=== PATIENT | female | born 1960 | race Caucasian/White ===

== ENCOUNTER → 2019-05-13 | Outpatient (CLI) | payer OTHER ==
[~2019-05-13] MED LIST: BREO ELLIPTA 11 EACH IH; HYDR-2145 PO; HYDR-2867 PO; HYDR-3164 PO; LOSA100T14 PO; VENTOLIN HFA18 GM INH
--- NOTE | 2019-05-13 13:29 | RAD ---
ULTRASOUND-GUIDED CORE BIOPSIES OF THE RIGHT BREAST X2 ULTRASOUND-GUIDED CORE BIOPSY OF RIGHT AXILLARY LYMPH NODE History: History of 3.5 cm mass at the 8:00 position of the right breast 2 cm from the nipple and a 4 mm hypoechoic nodule of the 11:00 position of the right breast 3 cm from the nipple. Abnormal-appearing right axillary lymph node. Procedure: The patient provided both verbal and written consent after the procedure and possible complications including bleeding and infection were explained. A timeout was performed which confirmed the name of the patient and date of and type of procedures and side of the procedure. Physician order was checked. Arm bracelet was checked. The patient was placed in the supine position on the ultrasound table and appropriate skin easton were placed on the right breast over the 2 lesions. The right breast was prepped and draped in the usual sterile fashion with ChloraPrep. Total of 6 cc of 1% lidocaine was utilized for local anesthesia at each site. Using sterile technique and ultrasound guidance, a small skin gerri was made and 4 separate 14-gauge Bard core biopsies of the larger 8:00 position mass of the right breast were obtained. These were placed into formalin and sent to pathology for further evaluation. Following this, a "S" biopsy marker was placed adjacent to the mass. Hemostasis was adequate after 5 minutes of manual compression. Postbiopsy sonography demonstrated no significant hematoma. The patient tolerated the procedure well without complication. Following this, using sterile technique and ultrasound guidance, a small skin gerri was made and 4 separate 18-gauge Bard core biopsies of the smaller 11:00 position lesion of the right breast were obtained. These were placed into formalin and sent to pathology for further evaluation. Following this, a coil biopsy marker was placed adjacent to the lesion. Hemostasis was adequate after 5 minutes of manual compression. Postbiopsy sonography demonstrated no significant hematoma. The patient tolerated the procedure well without complication. The right axillary region was scanned and an appropriate skin lobo was placed overlying the 17 mm right axillary lymph node which is diffusely hypoechoic which is abnormal in appearance. This area was prepped and draped in the usual sterile fashion with ChloraPrep. Total of 6 cc of 1 percent lidocaine was utilized for local anesthesia. Using sterile technique and ultrasound guidance, 3 separate 18-gauge fine-needle aspirations of this lymph node were performed and given to a home theater installer for further processing on slides. Subsequently, using sterile technique and ultrasound guidance, one separate 18-gauge Bard core biopsy of this lymph node was performed. This sample was given to the home theater installer for processing. Hemostasis was adequate after 5 minutes of manual compression. Postbiopsy sonography demonstrated no significant hematoma. The patient tolerated the procedure well without complication. IMPRESSION: Ultrasound-guided core biopsies of 2 lesions of the right breast were performed without complication. Fine-needle aspiration and core biopsy of an abnormal appearing right axillary lymph node was performed without competition. Biopsy results are pending. Follow-up will be with the patient's physician. TWO-VIEW DIAGNOSTIC MAMMOGRAM OF THE RIGHT BREAST FINDINGS: 2-D digital CC and MLO mammographic views of the right breast were performed which demonstrates an "S" biopsy marker along the anterior edge of the large spiculated mass. There is a coil biopsy marker seen at the 11:00 position of the anterior aspect of the right breast as well located within 1.5 cm of the S clip. IMPRESSION: Postbiopsy clip placement mammogram of the right breast was performed. Electronically signed by: Jose Carlos Hanna MD (05/13/2019 1:26 PM) [facility]
--- NOTE | 2019-05-14 14:06 | PATHOLOGY ---
Note [facility] Accession Number: [id number] TESTS RESULT FLAG UNITS REF RANGE LAB Clinician Provided Cytology Information No. of containers..01 Other (Miscellaneous) Source: [A] 01 RIGHT AXILLARY NODE DIAGNOSIS: [A] 02 RIGHT AXILLARY NODE POSITIVE FOR MALIGNANCY. CLUSTERS OF MALIGNANT CELLS HAVING CYTOLOGIC FEATURES OF METASTATIC CARCINOMA IDENTIFIED. THIS INTERPRETATION INCLUDES EVALUATION OF A CELL BLOCK. Signed out by: 02 Indio Berrios MD, Pathologist NPI- [id number] Performed by: Sandy Hinton, Entertainment Manager ([facility]) Gross description: 01 30ML, PINK, CLOUDY /LCS 06/10/1840 0000 Local FLAG LEGEND: L-Low Normal,H-High Normal,LL-Alert Low,HH-Alert High <-Panic Low,>-Panic High,A-Abnormal,AA-Critical Abnormal Performed at: [address] [place] [address] Mike Nix MD, [address] [address] Indio Berrios MD, Specimen Comment: [id number] Specimen Comment: A duplicate report has been generated due to demographic updates. Performed at: [address], [place], [place] [id number] MD Mike Nix MD Phone: [phone]
--- NOTE | 2019-05-14 17:06 | PATHOLOGY ---
[facility] Accession Number: [id number] . 01 Material submitted: . PART A: breast - RIGHT BREAST TISSUE 8:00 2CMFN. Modifiers: right PART B: breast - RIGHT BREAST TISSUE 11:00 3CMFN. Modifiers: right PART C: lymph node - RIGHT AXILLARY NODE. Modifiers: right, axillary tail . 01 Clinical history: . Right breast mass Right breast mass 11:00 3 cm from nipple Right axillary lymphadenopathy . 02 Diagnosis: A. Breast tissue, right breast mass 8:00, 2 cm from nipple, needle biopsies: - INVASIVE DUCTAL CARCINOMA, HIGH GRADE. . B. Breast tissue, right breast mass 11:00, 3 cm from nipple, needle biopsies: - Intraductal papilloma with focal sclerosis. . C. Right axillary lymph node, needle biopsy: - METASTATIC DUCTAL CARCINOMA. . (JPM:mm; 05/14/2019) [facility] 05/14/2019 1108 Local . 02 Comment: Sections of the right breast mass at 8:00 needle biopsy reveal an invasive mammary carcinoma. The tumor cells are present in small solid nests and cords which infiltrate a reactive desmoplastic stroma and show little to no tubule formation. The tumor cells show marked nuclear pleomorphism. The tumor shows marked mitotic activity with foci showing up to 4 mitotic figures within a single high power field. The invasive carcinoma measures up to 1.4 cm in greatest dimension on the glass slide. There is no lymphovascular tumor invasion. There are no tumor associated calcifications. Breast prognostic studies will be obtained on block A2, the results of which will be reported separately. . Sections of the right breast mass at 11:00 needle biopsy reveal an intraductal papilloma with focal sclerosis. There is no atypia or evidence of malignancy. . Sections of the right axillary lymph node needle biopsy shows extensive skyler replacement by metastatic ductal carcinoma. . The case is also examined by Dr. Annabelle Perez, who concurs with the diagnosis. . (JPM:mml; 05/14/2019) . 02 Electronically signed: . Indio Berrios MD, Pathologist NPI- [id number] . 01 Gross description: . A. The specimen is received in formalin, labeled "Nicolle Rojas, right breast 8:00 2 cm from nipple" and consists of 4 needle cores of pink-sandoval breast tissue measuring between 1.2 cm and 1.8 cm in length and 0.1 cm each in diameter which are entirely submitted in A1-A3. The specimen was obtained at 10 AM on 05/13/2019 and placed in formalin at 10:08 AM. The cold ischemic time is 8 minutes and the total formalin fixation time is greater than 6 hours but less than 72 hours. . B. The specimen is received in formalin, labeled "Nicolle Rojas, right breast 11:00 3 cm from nipple" and consists of 5 delicate needle cores of pink-sandoval tissue measuring between 0.4 cm and 0.9 cm in length and less than 0.1 cm each in diameter which are entirely submitted in B1. The specimen was obtained at 10:33 AM on 05/13/2019 and placed in formalin at 10:38 AM. The cold ischemic time is 5 minutes and the total formalin fixation time is greater than 6 hours but less than 72 hours. . C. The specimen is received in formalin, labeled "Nicolle Rojas, right axillary node" and consists of a single pink sandoval needle core measuring 1.3 cm in length and less than 0.1 cm in diameter which is entirely submitted in C1. The specimen was obtained at 11:20 AM and placed in formalin at 11:20 AM. The cold ischemic time is less than 1 minute and total formalin fixation time is greater than 6 hours but less than 72 hours. (SDY; 05/13/2019) SYU/SYU 05/13/2019 1537 Local . 02 Pathologist provided ICD-10: C50.911, D24.1, C77.3 . 02 CPT . 699642, 279810, 289056 Specimen Comment: A courtesy copy of this report has been sent to [phone], [phone] Specimen Comment: 1989 Specimen Comment: Report sent to and Performed at: [address], [place] [id number] MD Mike Nix MD Phone: [phone] Performed at: [facility] [address] [place], [place] [id number] MD Indio Berrios MD Phone: [phone]
== END ==
LOC: US 08:49
PROVIDERS: ATTEND Surgery
DX: N63.10 Unspecified lump in the right breast, unspecified quadrant (principal); C77.3 Secondary and unspecified malignant neoplasm of axilla and upper limb lymph nodes; C50.911 Malignant neoplasm of unspecified site of right female breast
CPT/HCPCS: 19083; 19084; 38505; 76942; 77065; 88173; 88305; 88361; C1713; 19081

== ENCOUNTER → 2019-05-23 | Outpatient (CLI) | payer OTHER ==
--- NOTE | 2019-05-23 15:58 | CARD ---
MR#: [id number] Date of Study: 05/23/2019 Ordering Physician: GEETA HARRELL, Referring Physician: Eufemia JEROME: Binta Johnson RDCS APPROVED REPORT EXAM: LIMITED Two-dimensional echocardiogram. Other Information Quality : Good INDICATION LV Function:Systolic Breast Cgmoyk-Vhi-Stcvc 2D DIMENSIONS RVDd2.5 (2.9-3.5cm)Left Atrium(2D)3.5 (1.6-4.0cm) IVSd1.1 (0.7-1.1cm)Aortic Root(2D)2.5 (2.0-3.7cm) LVDd5.0 (3.9-5.9cm)LVOT Diameter1.8 (1.8-2.4cm) PWd1.1 (0.7-1.1cm)LVDs2.6 (2.5-4.0cm) FS (%) 30.0 %SV92.0 ml LVEF(%)60.0 (>50%) LEFT VENTRICLE The left ventricle is normal size. There is normal left ventricular wall thickness. The left ventricu lar systolic function is normal. The Ejection Fraction is 60-65%. There is normal LV segmental wall m otion. RIGHT VENTRICLE The right ventricle is normal size. The right ventricular systolic function is normal. ATRIA The left atrium size is normal. The right atrium size is normal. PERICARDIAL EFFUSION There is no evidence of significant pericardial effusion. Critical Notification Critical Value: No <Conclusion> The left ventricular systolic function is normal. The Ejection Fraction is 60-65%. There is normal LV segmental wall motion. There is no evidence of significant pericardial effusion. Signed by : Toan Valenzuela, Electronically Approved : 05/23/2019 15:57:41
== END | disposition home or self-care (01) ==
LOC: ECHO 14:38
PROVIDERS: ATTEND Internal Medicine Hematology & Oncology
DX: C50.511 Malignant neoplasm of lower-outer quadrant of right female breast (principal); Z17.0 Estrogen receptor positive status [ER+]
CPT/HCPCS: 93308

== ENCOUNTER 2019-05-26 10:25 | Day surgery (SDC) | payer OTHER ==
[~2019-05-26] VITALS: Ht 170.2 cm; Wt 95.5 kg
[~2019-05-26 10:25] MED LIST changes: +BUPIVACAINE-EPI 0.5%-1:200000 MPF 30 ML VIAL. INJ ONE; +HEPARIN SODIUM 5,000 UNIT in IV NORMAL SALINE 500ML BAG 500 ML IRR ONE; -HYDR-3164 PO; +HYDROmorphone 2 MG/ML VIAL IV PRN; +IV RINGERS,LACTATED 1000ML 1,000 ML IV SCH; +LIDOCAINE 1% PF 2 ML VIAL. ID PRN; +MORPHINE SULFATE 2 MG/ML VIAL. IV PRN; +ONDANSETRON PF 4 MG/2 ML VIAL. IV PRN; +PROCHLORPERAZINE 10 MG/2 ML VIAL. IV PRN; +fentaNYL PF VIAL 100 MCG/2 ML VIAL IV PRN
[2019-05-26] MEDS ORDERED: PROPOFOL 20 ML IV ONE (10:32)
[2019-05-26] MEDS ORDERED: LIDOCAINE 2% PF 5 ML VIAL. ONE (10:33)
[2019-05-26] MEDS ORDERED: ONDANSETRON PF 4 MG/2 ML VIAL. ONE (10:33)
[2019-05-26] MEDS ORDERED: DEXAMETHASONE SOD PHOS 4 MG/ML VIAL ONE (10:33)
[2019-05-26] MEDS ORDERED: fentaNYL PF VIAL 100 MCG/2 ML VIAL ONE ×2 (10:33→13:33)
[2019-05-26] MEDS ORDERED: ceFAZolin 2GM PREMIX 2 GM/50 ML BAG IV ONE (12:00)
[2019-05-26] MEDS ORDERED: SEVOFLURANE 61 TO 120 MINUTES. IH ONE (12:05)
[2019-05-26] MEDS ORDERED: ePHEDrine PF IN SALINE 50 MG/10 ML SYRINGE. IV ONE (12:46)
--- NOTE | 2019-05-26 12:58 | PDOC4 ---
Operative Note Operative Note Operative Note: Preoperative Diagnosis: Breast Cancer Postoperative Diagnosis: Same Procedure: Placement of Power Port-A-Cath using SonoSite guidance Surgeon: Luis Eduardo Refinery Operator Polymerization Plant: Chet TRUJILLO Anesthesia: Gen. EBL: 10 mL Specimen: None Drains: None Complications: None Indication: The patient is a 58 year old female who was recently diagnosed with right breast cancer. A request was made for placement of a Port-A-Cath to allow for chemotherapy treatment. The details and risks of the procedure were discussed. The risks include bleeding, infection, vessel injury, pneumothorax, pain, anesthetic risk, port, catheter or tubing malfunction or dysfunction, potential need for additional surgery or procedure. The patient understands and would like to proceed. Description: The patient was placed supine on the operating table and general anesthesia was performed. The bilateral neck and chest were prepped with ChloraPrep and draped in a standard surgical manner. With SonoSite ultrasound guidance the left internal jugular vein was readily identified and appeared patent. Entry was made into the vein with the skinny introducer needle under ultrasound guidance. The skinny guidewire passed readily into the central venous system. A small incision was made at the skin exit site. The skinny sheath was then placed over the guidewire. The larger guidewire was then placed within the sheath into the central venous system. Intraoperative fluoroscopy confirmed good position of the guidewire in the central venous system. The dilator and sheath were then placed over the guidewire. The catheter portion was then inserted into the central venous system and visualized using fluoroscopy. A separate left u pper chest skin incision was made with a scalpel. A subcutaneous pocket was developed with cautery of sufficient size to accommodate the port. The catheter was then tunneled subcutaneously to the level of the newly formed pocket. Using fluoroscopy the catheter was positioned with the tip in the distal superior vena cava. The catheter was then cut and assembled to the port. The port was then secured to the chest wall with two 2-0 Prolene sutures. Using the Chavez needle the port readily aspirated and flushed without difficulty. Fluoroscopy confirmed good positioning of the catheter with no twists or kinks. The subcutaneous tissue was approximated with 3-0 Vicryl. The skin was then closed with 4-0 Monocryl. A sterile OpSite dressing was then applied. The patient tolerated the procedure well and was sent to the recovery room in stable condition. At the end of the case all counts were correct. ALEJANDRO MURRAY MD May 26, 2019 12:57
[2019-05-26] MEDS ORDERED: HYDROcodone/APAP 5/325MG 1 TAB TABLET PO ONE ×2 (13:00)
--- NOTE | 2019-05-26 13:00 | DISCH ---
DISCHARGE INSTRUCTIONS Condition on Discharge Condition on Discharge: Stable Activity After Discharge Activity Instructions for Disc: Resume previous activity, Other, see below Wound Incision Care Wound/Incision Care: Other, see below (keep incision and port clean and dry) Follow-Up Follow up with: Oncology appointment ALEJANDRO MURRAY MD May 26, 2019 13:00
[2019-05-26] MEDS ORDERED: HYDR-3164 PO (13:06)
[2019-05-26] MEDS: fentaNYL PF VIAL 100 MCG/2 ML VIAL IV PRN ×2 (13:35→13:46)
[2019-05-26 13:45] VITALS: BP 157/59
--- NOTE | 2019-05-26 14:12 | RAD ---
EXAM: Chest, single view. HISTORY: Portacatheter placement. COMPARISON: None. FINDINGS: A single view of the chest is obtained. There is a left chest wall port catheter with the tip in the superior vena cava. There is diffuse lower lobe predominant interstitial infiltrate. There is no pleural effusion or pneumothorax. The heart is normal in size. There is a 2.7 cm nodule or mass along the right upper lobe. IMPRESSION: 1. Left port catheter with the tip in the superior cava. There is no pneumothorax. 2. Diffuse lower lobe predominant interstitial infiltrate. 3. Suspected right upper lobe nodule or mass. This can be better characterized with a CT. Electronically signed by: Camelia Blake MD (05/26/2019 2:09 PM) [place] [id number]
== END 2019-05-26 14:28 | disposition home or self-care (01) ==
LOC: SURG 10:25
PROVIDERS: ATTEND Surgery
DX: Z45.2 Encounter for adjustment and management of vascular access device (principal); C50.911 Malignant neoplasm of unspecified site of right female breast; I10 Essential (primary) hypertension; E66.9 Obesity, unspecified; Z68.32 Body mass index [BMI] 32.0-32.9, adult; Z87.891 Personal history of nicotine dependence
CPT/HCPCS: 36561; 71045; 77001; A7015; C1788; J0171; J0696; J1100; J1644; J2001; J2405; J2704; J3010; J3490; J7040; 36556

== ENCOUNTER → 2019-10-24 | Outpatient (CLI) | payer OTHER ==
[~2019-10-24] MED LIST changes: -BUPIVACAINE-EPI 0.5%-1:200000 MPF 30 ML VIAL. INJ ONE; -HEPARIN SODIUM 5,000 UNIT in IV NORMAL SALINE 500ML BAG 500 ML IRR ONE; +HYDR-3164 PO; -HYDROmorphone 2 MG/ML VIAL IV PRN; -IV RINGERS,LACTATED 1000ML 1,000 ML IV SCH; -LIDOCAINE 1% PF 2 ML VIAL. ID PRN; -MORPHINE SULFATE 2 MG/ML VIAL. IV PRN; -ONDANSETRON PF 4 MG/2 ML VIAL. IV PRN; -PROCHLORPERAZINE 10 MG/2 ML VIAL. IV PRN; +VARE1TAB21 PO; -fentaNYL PF VIAL 100 MCG/2 ML VIAL IV PRN
== END | disposition home or self-care (01) ==
LOC: LAB 13:06
PROVIDERS: ATTEND Surgery
DX: Z01.812 Encounter for preprocedural laboratory examination (principal); Z11.59 Encounter for screening for other viral diseases; C50.911 Malignant neoplasm of unspecified site of right female breast
CPT/HCPCS: 36415; 87635

== ENCOUNTER 2019-10-29 09:12 | Observation (INO) | payer OTHER ==
[~2019-10-29] VITALS: Ht 170.2 cm; Wt 96.3 kg
[2019-10-29] VITALS (8 sets, daily range): BP systolic 135–161; BP diastolic 70–92
[~2019-10-29 09:12] MED LIST changes: +DEXAMETHASONE SOD PHOS 4 MG/ML VIAL ONE; +HYDROmorphone 2 MG/ML VIAL IV PRN; +IV RINGERS,LACTATED 1000ML 1,000 ML IV SCH; +LIDOCAINE 2% PF 5 ML VIAL. ONE; +MIDAZOLAM HCL/PF 2 MG/2 ML VIAL. ONE; +MORPHINE SULFATE 2 MG/ML VIAL. IV PRN; +ONDANSETRON PF 4 MG/2 ML VIAL. IV PRN; +ONDANSETRON PF 4 MG/2 ML VIAL. ONE; +PROCHLORPERAZINE 10 MG/2 ML VIAL. IV PRN; +PROPOFOL 10 MG/ML (20ML) VIAL. IV ONE; +fentaNYL PF VIAL 100 MCG/2 ML VIAL IV PRN; +fentaNYL PF VIAL 100 MCG/2 ML VIAL ONE
[2019-10-29] MEDS ORDERED: ISOSULFAN BLUE 1% 50 MG/5 ML VIAL. SQ ONE (09:38)
[2019-10-29] MEDS ORDERED: ceFAZolin 2GM PREMIX 2 GM/50 ML BAG IV ONE (11:00)
[2019-10-29] MEDS ORDERED: SEVOFLURANE 61 TO 120 MINUTES. IH ONE (11:12)
[2019-10-29] MEDS ORDERED: fentaNYL PF VIAL 100 MCG/2 ML VIAL ONE ×2 (11:49→13:57)
--- NOTE | 2019-10-29 13:25 | PDOC4 ---
Operative Note Operative Note Operative Note: Preoperative Diagnosis: Right breast cancer Postoperative Diagnosis: Same Procedure: Right simple mastectomy, right axillary sentinel lymph node biopsy, right axillary dissection Surgeon: Luis Eduardo [facility] Attendant: SIVA Ny Anesthesia: General EBL: 50 mL Specimen: [place] lymph node #1, #2 to pathology, right breast stitch at 12:00 to pathology, right axillary contents to pathology Drains: 19 Indonesian BRIGIDA drain x2 Complications: None Indication: The patient is a 58-year-old female who was diagnosed previously with a large right breast cancer and metastasis to an axillary lymph node. She received neoadjuvant chemotherapy and is now ready for surgical treatment. In our discussion we recommended a complete mastectomy due to the size and location of the tumor. In addition we plan to incorporate a sentinel lymph node biopsy and she is aware of the potential for an axillary dissection. The risks of surgery were discussed which include bleeding, infection, wound healing problems, scar tissue, pain, anesthetic risk, potential need for additional surgery procedure. She understands and would like to proceed. Description: The patient was taken to the operating room and placed supine on the operating table. General anesthesia was performed. The right breast and axilla were prepped with ChloraPrep and draped in a standard surgical manner. 5 mL of Lymphazurin were injected deep to the nipple areole complex. Several mi nutes were allowed to elapse. With a marker in elliptical tracing was made around the nipple areole or complex extending from the medial breast to the axilla. The superior lateral aspect of the tracing was opened with a scalpel. Cautery dissection was carried down into the axillary tissues. The radio guided probe was able to identify 2 separate areas of increased nuclear uptake corresponding to sentinel lymph nodes. They were both mobilized from the surrounding tissue and sent to pathology. Frozen section evaluation confirmed the presence of metastasis in lymph node #2. We therefore elected to proceed with a full axillary dissection. With a scalpel an incision was made at the elliptical tracing. Cautery dissection was used to develop the skin flaps. The superior flap was developed initially mobilizing the skin from the breast parenchyma. The dissection was carried superiorly to the level just below the clavicle. In a similar manner the inferior skin flap was developed and the dissection included the inframammary fold. In a medial to lateral fashion the breast was mobilized off the chest wall. Several blood vessels that were encountered were controlled with cautery and larger vessels were ligated with 2- 0 silk. The entire breast was then fully excised and marked with a stitch at the 12 o'clock position. This was sent to pathology for evaluation. We proceeded then with the axillary dissection. The boundaries of the dissection included the axillary vein superiorly, the pectoralis muscle medially, and the latissimus muscle laterally. In a superior to inferior fashion the adipose and lymphatic structures were mobilized from the surrounding tissues. The thoracodorsal bundle and nerve were identified and preserved. The long thoracic nerve was also identified and preserved. The axillary tissues were fully freed and sent as a specimen. A couple of blood vessels supplying the axillary contents were ligated with 2-0 Vicryl. Two drains were then left, one in the axilla and one beneath the skin flap of the right chest and both were secured to the skin with 2-0 silk. The subcutaneous tissues were approximated with 3-0 Vicryl and skin was closed with 4-0 Monocryl. A sterile OpSite dressing was then applied. The patient tolerated the procedure well and was sent to the recovery room in stable condition. At the end of the case all counts were correct. ALEJANDRO MURRAY MD October 29, 2019 13:25
[2019-10-29] MEDS: IV NORMAL SALINE 1000ML BAG 1,000 ML IV SCH (13:26)
[2019-10-29] MEDS ORDERED: HYDROmorphone 2 MG/ML VIAL IV PRN ×2 (13:30→14:45)
[2019-10-29] MEDS ORDERED: NALOXONE 0.4 MG/ML VIAL. IV PRN (13:30)
[2019-10-29] MEDS ORDERED: HYDROcodone/APAP 5/325MG 1 TAB TABLET PO PRN (13:30)
[2019-10-29] MEDS ORDERED: 0.9 % SODIUM CHLORIDE 10 ML DISP.SYRIN. IV PRN (13:30)
[2019-10-29] MEDS ORDERED: ONDANSETRON PF 4 MG/2 ML VIAL. IVP PRN (13:30)
[2019-10-29] MEDS ORDERED: NON FORMULARY ITEM (Albuterol Sulfate (Ventolin Hfa Inhaler) 2 PUFF) INH PRN (13:30)
--- NOTE | 2019-10-29 13:38 | RAD ---
EXAM: SENTINEL NODE INJECTION 10/29/2019 9:45 AM CLINICAL INDICATION:Breast cancer COMPARISON:Breast ultrasound and mammogram 05/13/2019 TECHNIQUE: The purpose of the procedure and risks and benefits were explained to the patient. Informed consent was obtained. The skin overlying the lateral right breast was cleansed with Betadine. Topical spray was used for anesthetic.Next, 0.2 mL of Lymphoseek (1 mCi technetium 99m labeled Tilmanocept) radiotracer was injected intradermally at the edge of the areola at 9:00, creating a skin wheel. The patient tolerated the procedure well without immediate complication. IMPRESSION:Technically successful sentinel node injection of the right breast for surgical planning. Electronically signed by: Melvi Morales MD (10/29/2019 1:34 PM) [id number]
[2019-10-29] MEDS: fentaNYL PF VIAL 100 MCG/2 ML VIAL IV PRN ×2 (13:59→14:13)
[2019-10-29] MEDS ORDERED: MORPHINE SULFATE 2 MG/ML VIAL. ONE (14:29)
[2019-10-29] MEDS ORDERED: PROCHLORPERAZINE 10 MG/2 ML VIAL. ONE (14:29)
[2019-10-29] MEDS: hydrALAZINE 10 MG TABLET PO SCH (15:00)
[2019-10-29] MEDS: LOSARTAN POTASSIUM 50 MG TABLET. PO SCH (15:00)
[2019-10-29] MEDS: hydroCHLOROthiazide 25 MG TABLET PO SCH (15:00)
[2019-10-29] MEDS ORDERED: ALBUTEROL SULFATE 2.5 MG/3 ML NEBU. NEB PRN (15:00)
[2019-10-29] MEDS: ALBUTEROL SULFATE 2.5 MG/3 ML NEBU. NEB SCH ×2 (15:09→19:55)
[2019-10-29] MEDS: IV 1/2 NORMAL SALINE 1,000 ML IV SCH (16:31)
[2019-10-29] MEDS: HYDROcodone/APAP 5/325MG 1 TAB TABLET PO PRN ×2 (16:40→22:00)
[2019-10-29] MEDS: VARENICLINE 0.5 MG TABLET. PO SCH ×2 (16:40→22:01)
[2019-10-29] MEDS: BUDESONIDE 0.5 MG/2 ML NEBU. NEB SCH (19:56)
[2019-10-30] MEDS: IV 1/2 NORMAL SALINE 1,000 ML IV SCH (02:46)
[2019-10-30 03:00] VITALS: BP 127/68
[2019-10-30] MEDS: ALBUTEROL SULFATE 2.5 MG/3 ML NEBU. NEB SCH ×3 (07:13→13:08)
[2019-10-30] MEDS: BUDESONIDE 0.5 MG/2 ML NEBU. NEB SCH (07:14)
[2019-10-30 07:15] VITALS: BP 145/87
[2019-10-30] MEDS: hydrALAZINE 10 MG TABLET PO SCH (07:39)
[2019-10-30] MEDS: VARENICLINE 0.5 MG TABLET. PO SCH (07:39)
[2019-10-30] MEDS: LOSARTAN POTASSIUM 50 MG TABLET. PO SCH (07:40)
[2019-10-30] MEDS: hydroCHLOROthiazide 25 MG TABLET PO SCH (07:40)
[2019-10-30] MEDS: HYDROcodone/APAP 5/325MG 1 TAB TABLET PO PRN ×2 (07:40→12:03)
[2019-10-30] MEDS ORDERED: NON FORMULARY ITEM (Fluticasone/Vilanterol (Breo Ellipta 100-25 Mcg Inh) 2 PUFF) IH SCH (09:00)
[2019-10-30 11:26] VITALS: BP 129/85
--- NOTE | 2019-10-30 12:36 | PDOC ---
PROGRESS NOTES Subjective Subjective doing well Objective Objective Vital Signs Date Time Temp Pulse Resp B/P (MAP) Pulse Ox O2 Delivery O2 Flow Rate FiO2 10/30/19 12:03 91 Nasal Cannula 2.0 10/30/19 11:26 97.5 95 16 129/85 (100) 97.5 Intake and Output 10/30/19 07:00 Intake Total 1100 ml Output Total 150 ml Balance 950 ml Intake Oral 350 ml IV Total 750 ml Output Drainage Total 100 ml Estimated Blood Loss 50 ml # Voids 1 Physical Exam Physical Exam dressing clean, JPs with serosang fluid Assessment Assessment R breast cancer Plan Plan of Care Stable postop, discharge Comment Review of Relevant I have reviewed the following items lobo (where applicable) has been applied. Medications Current Medications Ondansetron HCl (Zofran) 4 mg PRN Q6HRS PRN IV NAUSEA/VOMITING; Start 10/29/19 at 07:00; Stop 10/30/19 at 06:59; Status DC Fentanyl Citrate (Fentanyl 2ml Vial) 25 mcg PRN Q5MIN PRN IV MILD PAIN 1-3; Start 10/29/19 at 07:00; Stop 10/30/19 at 06:59; Status DC Fentanyl Citrate (Fentanyl 2ml Vial) 50 mcg PRN Q5MIN PRN IV MODERATE TO SEVERE PAIN Last administered on 10/29/19at 14:13; Start 10/29/19 at 07:00; Stop 10/30/19 at 06:59; Status DC Morphine Sulfate (Morphine Sulfate) 1 mg PRN Q10MIN PRN IV SEVERE PAIN 7-10; Start 10/29/19 at 07:00; Stop 10/30/19 at 06:59; Status DC Ringer's Solution 1,000 ml @ 30 mls/hr Q24H IV Last administered on 10/29/19at 10:02; Start 10/29/19 at 07:00; Stop 10/29/19 at 18:59; Status DC Hydromorphone HCl (Dilaudid) 0.5 mg PRN Q10MIN PRN IV SEV PAIN, Second choice; Start 10/29/19 at 07:00; Stop 10/30/19 at 06:59; Status DC Prochlorperazine Edisylate (Compazine) 5 mg PACU PRN PRN IV NAUSEA, MRX1; Start 10/29/19 at 07:00; Stop 10/30/19 at 06:59; Status DC Cefazolin Sodium/ Dextrose 50 ml @ 100 mls/hr 1X PREOP PRN IV PRIOR TO PROCEDURE Last administered on 10/29/19at 10:53; Start 10/29/19 at 06:00; Stop 10/29/19 at 18:00; Status DC Propofol (Diprivan) 200 mg STK-MED ONCE IV ; Start 10/29/19 at 09:09; Stop 10/29/19 at 09:10; Status DC Lidocaine HCl (Lidocaine Pf 2% Vial) 5 ml STK-MED ONCE .ROUTE ; Start 10/29/19 at 09:09; Stop 10/29/19 at 09:10; Status DC Ondansetron HCl (Zofran) 4 mg STK-MED ONCE .ROUTE ; Start 10/29/19 at 09:09; Stop 10/29/19 at 09:10; Status DC Dexamethasone Sodium Phosphate (Decadron) 4 mg STK-MED ONCE .ROUTE ; Start 10/29/19 at 09:09; Stop 10/29/19 at 09:10; Status DC Fentanyl Citrate (Fentanyl 2ml Vial) 100 mcg STK-MED ONCE .ROUTE ; Start 10/29/19 at 09:09; Stop 10/29/19 at 09:10; Status DC Midazolam HCl (Versed) 2 mg STK-MED ONCE .ROUTE ; Start 10/29/19 at 09:09; Stop 10/29/19 at 09:10; Status DC Isosulfan Blue (Lymphazurin Blue) 50 mg STK-MED ONCE SQ Last administered on 10/29/19at 10:28; Start 10/29/19 at 09:38; Stop 10/29/19 at 09:38; Status DC Sevoflurane (Ultane) 60 ml STK-MED ONCE IH ; Start 10/29/19 at 11:12; Stop 10/29/19 at 11:12; Status DC Fentanyl Citrate (Fentanyl 2ml Vial) 100 mcg STK-MED ONCE .ROUTE ; Start 10/29/19 at 11:49; Stop 10/29/19 at 11:50; Status DC Sodium Chloride (Normal Saline Flush) 3 ml QSHIFT PRN IV AFTER MEDS AND BLOOD DRAWS; Start 10/29/19 at 13:30 Sodium Chloride 1,000 ml @ 75 mls/hr [id number] IV Last administered on 10/29/19at 16:31; Start 10/29/19 at 13:26 Acetaminophen/ Hydrocodone Bitart (Lortab 5/325) 1 tab PRN Q4HRS PRN PO MILD PAIN 1-3 Last administered on 10/30/19at 12:03; Start 10/29/19 at 13:30 Acetaminophen/ Hydrocodone Bitart (Lortab 5/325) 2 tab PRN Q4HRS PRN PO MODERATE PAIN, SEVERE PAIN; Start 10/29/19 at 13:30 Naloxone HCl (Narcan) 0.4 mg PRN Q2MIN PRN IV SEE INSTRUCTIONS; Start 10/29/19 at 13:30 Sodium Chloride 1,000 ml @ 25 mls/hr Q24H IV ; Start 10/29/19 at 13:26 Hydromorphone HCl (Dilaudid) 0.2 mg PRN Q2HR PRN IV PAIN; Start 10/29/19 at 13:30 Ondansetron HCl (Zofran) 4 mg PRN Q6HRS PRN IVP NAUESA, 1ST CHOICE; Start 10/29/19 at 13:30 Hydralazine HCl (Apresoline) 10 mg DAILY PO Last administered on 10/30/19at 07:39; Start 10/29/19 at 15:00 Hydrochlorothiazide (Hydrodiuril) 12.5 mg DAILY PO Last administered on 10/30/19at 07:40; Start 10/29/19 at 15:00 Non-Formulary Medication (Albuterol Sulfate (Ventolin Hfa Inhaler)) 2 puff PRN Q4-6HRS PRN INH SHORTNESS OF BREATH; Start 10/29/19 at 13:30; Status UNV Non-Formulary Medication (Fluticasone/ Vilanterol (Breo Ellipta 100-25 Mcg Inh)) 2 puff DAILY IH ; Start 10/30/19 at 09:00; Status UNV Losartan Potassium (Cozaar) 100 mg DAILY PO Last administered on 10/30/19at 07:40; Start 10/29/19 at 15:00 Varenicline (Chantix) 1 mg BID PO Last administered on 10/30/19at 07:39; Start 10/29/19 at 14:15 Fentanyl Citrate (Fentanyl 2ml Vial) 100 mcg STK-MED ONCE .ROUTE ; Start 10/29/19 at 13:57; Stop 10/29/19 at 13:58; Status DC Morphine Sulfate (Morphine Sulfate) 2 mg STK-MED ONCE .ROUTE ; Start 10/29/19 at 14:29; Stop 10/29/19 at 14:29; Status DC Prochlorperazine Edisylate (Compazine) 10 mg STK-MED ONCE .ROUTE ; Start 10/29/19 at 14:29; Stop 10/29/19 at 14:30; Status DC Hydromorphone HCl (Dilaudid) 0.5 mg PRN Q2HR PRN IV PAIN; Start 10/29/19 at 14:45 Albuterol Sulfate (Ventolin Neb Soln) 2.5 mg Q6HRS NEB Last administered on 10/30/19at 07:13; Start 10/29/19 at 15:00 Budesonide (Pulmicort) 0.5 mg RTBID NEB Last administered on 10/30/19at 07:14; Start 10/29/19 at 20:00 Albuterol Sulfate (Ventolin Neb Soln) 2.5 mg PRN Q4HRS PRN NEB SHORTNESS OF BREATH; Start 10/29/19 at 15:00 Active Scripts Active Reported Chantix (Varenicline Tartrate) 1 Mg Tablet 1 Mg PO BID Hydrochlorothiazide Tablet (Hydrochlorothiazide) 25 Mg Tablet 12.5 Mg PO DAILY Losartan Potassium 100 Mg Tablet 100 Mg PO DAILY Hydralazine Hcl 10 Mg Tablet 10 Mg PO DAILY Ventolin Hfa Inhaler (Albuterol Sulfate) 18 Gm Hfa.aer.ad 2 Puff INH PRN Q4-6HRS PRN Breo Ellipta 100-25 Mcg Inh (Fluticasone/Vilanterol) 1 Each Aer.pow.ba 2 Puff IH DAILY Vitals/I & O Vital Sign - Last 24 Hours 10/29/19 10/29/19 10/29/19 10/29/19 13:28 13:45 13:59 14:00 Pulse 89 89 Resp 21 19 20 B/P (MAP) 199/92 188/85 Pulse Ox 98 96 96 O2 Delivery Mask Simple Mask Simple Mask Simple Mask O2 Flow Rate 8 8 8.0 8 5/20/20 5/20/20 5/20/20 5/20/20 14:13 14:15 14:30 14:40 Temp 98.4 98.4 97.8 98.4 98.4 97.8 Pulse 91 88 101 Resp 20 18 18 17 B/P (MAP) 157/89 180/82 143/83 (103) Pulse Ox 95 93 93 93 O2 Delivery Nasal Cannula Nasal Cannula Nasal Cannula Nasal Cannula O2 Flow Rate 4.0 4 4 3.0 5/20/20 5/20/20 5/20/20 5/20/20 14:45 14:50 16:30 16:40 Pulse 82 Resp 16 B/P (MAP) 141/89 (106) Pulse Ox 92 O2 Delivery Nasal Cannula Nasal Cannula Nasal Cannula Room Air O2 Flow Rate 4.0 4 3.0 5/20/20 5/20/20 5/20/20 5/20/20 16:45 17:00 17:15 17:45 Pulse 92 89 85 86 B/P (MAP) 161/91 (114) 152/92 (112) 147/84 (105) 143/83 (103) Pulse Ox 92 92 96 95 O2 Delivery Nasal Cannula Nasal Cannula Nasal Cannula Nasal Cannula O2 Flow Rate 3.0 3.0 3.0 3.0 5/20/20 5/20/20 5/20/20 5/20/20 17:46 19:00 19:58 20:00 Temp 97.9 97.9 Pulse 89 Resp 16 18 B/P (MAP) 135/86 (102) Pulse Ox 95 99 O2 Delivery Nasal Cannula Nasal Cannula Nasal Cannula Nasal Cannula O2 Flow Rate 4.0 3.0 3.0 4.0 5/20/20 5/20/20 5/20/20 5/21/20 22:00 23:00 23:00 03:00 Temp 97.9 97.9 97.9 97.9 Pulse 80 80 Resp 20 20 18 18 B/P (MAP) 135/70 (91) 127/68 (87) Pulse Ox 99 95 95 96 O2 Delivery Nasal Cannula Nasal Cannula Nasal Cannula Nasal Cannula O2 Flow Rate 3.0 3.0 3.0 3.0 5//20 5/21/20 5/21/20 5//20 07:15 07:15 07:39 07:40 Temp 98.2 98.2 Pulse 91 91 Resp 16 B/P (MAP) 145/87 (106) 145/87 Pulse Ox 94 90 94 O2 Delivery Nasal Cannula Nasal Cannula Nasal Cannula O2 Flow Rate 2.0 3.0 2.0 10/30/19 10/30/19 10/30/19 10/30/19 07:40 07:45 08:40 11:26 Temp 97.5 97.5 Pulse 91 95 Resp 16 B/P (MAP) 145/87 129/85 (100) Pulse Ox 94 91 O2 Delivery Nasal Cannula Nasal Cannula Nasal Cannula O2 Flow Rate 2.0 2.0 2.0 10/30/19 12:03 Pulse Ox 91 O2 Delivery Nasal Cannula O2 Flow Rate 2.0 Intake and Output 10/29/19 10/29/19 10/30/19 15:00 23:00 07:00 Intake Total 800 ml 300 ml Output Total 50 ml 100 ml Balance 750 ml 300 ml -100 ml ALEJANDRO MURRAY MD October 30, 2019 12:36
--- NOTE | 2019-10-30 12:38 | DISCH ---
DISCHARGE INSTRUCTIONS Condition on Discharge Condition on Discharge: Stable Activity After Discharge Activity Instructions for Disc: Activity as tolerated Diet after Discharge Diet after Discharge: Regular Wound Incision Care Wound/Incision Care: Other, see below (keep dressings clean and dry, record BRIGIDA drain output BID) Follow-Up Follow up with: Dr Murray in 1 week in office, call for appt [phone] ALEJANDRO MURRAY MD October 30, 2019 12:38
--- NOTE | 2019-10-30 12:40 | PDOC3 ---
Discharge Summary Visit Information Date of Admission: October 29, 2019 Date of Discharge: October 30, 2019 Admitting Diagnosis: R breast cancer Brief Hospital Course Allergies Allergies Coded Allergies Type Severity Reaction Last Updated Verified No Known Drug Allergies 05/26/19 No Vital Signs Vital Signs Date Time Temp Pulse Resp B/P (MAP) Pulse Ox O2 Delivery O2 Flow Rate FiO2 10/30/19 12:03 91 Nasal Cannula 2.0 10/30/19 11:26 97.5 95 16 129/85 (100) 97.5 Brief Hospital Course Ms. Rojas is a 58 old female who presented with right breast cancer. She underwent a right mastectomy and is stable for discharge on POD 1. Discharge Information Scheduled Fluticasone/Vilanterol (Breo Ellipta 100-25 Mcg Inh) 1 Each Aer.pow.ba, 2 PUFF I H DAILY for CONTROL COPD, (Reported) Entered as Reported by: ALEXANDRO BARBOZA on 05/23/19 1058 Last Action: Converted on 10/29/19 1330 by ALEJANDRO MURRAY Hydralazine Hcl (Hydralazine Hcl) 10 Mg Tablet, 10 MG PO DAILY for BP CONTROL, (Reported) Entered as Reported by: ALEXANDRO BARBOZA on 05/23/19 1058 Last Action: Continued on 10/29/19 1330 by ALEJANDRO MURRAY Hydrochlorothiazide (Hydrochlorothiazide Tablet ) 25 Mg Tablet, 12.5 MG PO DAILY for DIURETIC, Ref 0 (Reported) Entered as Reported by: ALEXANDRO BARBOZA on 05/23/19 1058 Last Taken: Unknown Dose on 10/29/19 0700 Last Action: Continued on 10/29/19 1330 by ALEJANDRO MURRAY Losartan Potassium (Losartan Potassium) 100 Mg Tablet, 100 MG PO DAILY for HYPERTENSION, (Reported) Entered as Reported by: ALEXANDRO BARBOZA on 05/23/19 1058 Last Taken: Unknown Dose on 10/29/19 0700 Last Action: Converted on 10/29/19 1330 by ALEJANDRO MURRAY Varenicline Tartrate (Chantix) 1 Mg Tablet, 1 MG PO BID for smoking cessation, (Reported) Entered as Reported by: ALEXANDRO BARBOZA on 10/28/19 1312 Last Action: Converted on 10/29/19 1330 by ALEJANDRO MURRAY Scheduled PRN Albuterol Sulfate (Ventolin Hfa Inhaler) 18 Gm Hfa.aer.ad, 2 PUFF INH PRN Q4- 6HRS PRN for SHORTNESS OF BREATH, Ref 0 (Reported) Entered as Reported by: ALEXANDRO BARBOZA on 05/23/19 1058 Last Taken: Unknown Dose on 10/29/19 0700 Last Action: Converted on 10/29/19 1330 by ALEJANDRO MURRAY Discontinued Medications Hydrocodone/Apap 5-325 ([place] 5-325 Tablet) 1 Each Tablet, 1-2 TAB PO Q4-6HRS for pain, #20 (Reported) Entered as Reported by: RADHA CORMIER RN on 05/26/19 1306 Last Action: Discontinued on 10/28/19 1312 by ALEJANDRO SHEPHERD MD October 30, 2019 12:40
--- NOTE | 2019-10-30 12:41 | NUR ---
SW following. Discussed with RN, pt from home alone, has PORT, mastectomy. RN advised no SW needs and anticipates discharge home today. Discharge order for home with self care. No further SW needs.
[2019-10-30] MEDS ORDERED: HYDR-3164 PO (12:59)
[2019-10-30] MEDS: IV NORMAL SALINE 1000ML BAG 1,000 ML IV SCH (13:21)
--- NOTE | 2019-10-30 13:47 | NUR ---
Patient left around 1340 with family. BRIGIDA drains in place and draining serosanginous fluid from right chest. Patient instructed on how to care for them at home with measurement cups sent with her at discharge. Discharge instructions gone over in detail. Dressings from surgery with only a scant amount of drainage noted. Script given to the patient for [place]. IV in left hand discontinued and port in left chest still unaccessed. No concerns noted at discharge.
== END 2019-10-30 13:40 | disposition home or self-care (01) ==
LOC: SURG 09:12 → 4 NORTH 14:12
PROVIDERS: ADMIT Surgery; ATTEND Surgery
DX: C50.911 Malignant neoplasm of unspecified site of right female breast (principal); C77.3 Secondary and unspecified malignant neoplasm of axilla and upper limb lymph nodes; I10 Essential (primary) hypertension; Z90.11 Acquired absence of right breast and nipple; Z79.899 Other long term (current) drug therapy; J44.9 Chronic obstructive pulmonary disease, unspecified; Z79.51 Long term (current) use of inhaled steroids
CPT/HCPCS: 19303; 38525; 38792; 88307; 88309; 88331; 88341; 88342; 94640; A7015; A9520; G0378; G0379; J0696; J1100; J2250; J2405; J2704; J3010; J3490; Q9968; 96374; J7613; J7626

== ENCOUNTER → 2020-01-28 | Outpatient (CLI) | payer OTHER ==
[~2020-01-28] MED LIST changes: -DEXAMETHASONE SOD PHOS 4 MG/ML VIAL ONE; -HYDROmorphone 2 MG/ML VIAL IV PRN; -IV RINGERS,LACTATED 1000ML 1,000 ML IV SCH; -LIDOCAINE 2% PF 5 ML VIAL. ONE; -MIDAZOLAM HCL/PF 2 MG/2 ML VIAL. ONE; -MORPHINE SULFATE 2 MG/ML VIAL. IV PRN; -ONDANSETRON PF 4 MG/2 ML VIAL. IV PRN; -ONDANSETRON PF 4 MG/2 ML VIAL. ONE; -PROCHLORPERAZINE 10 MG/2 ML VIAL. IV PRN; -PROPOFOL 10 MG/ML (20ML) VIAL. IV ONE; -fentaNYL PF VIAL 100 MCG/2 ML VIAL IV PRN; -fentaNYL PF VIAL 100 MCG/2 ML VIAL ONE
--- NOTE | 2020-01-28 13:58 | CARD ---
MR#: [id number] Date of Study: 01/28/2020 Ordering Physician: ALBA GRAVES, Referring Physician: ALBA GRAVES, Tech: Binta Johnson [facility] APPROVED REPORT EXAM: Two-dimensional and M-mode echocardiogram with Doppler and color Doppler. Other Information Quality : Good INDICATION Hypertension/HCVD Breast Cancer/Chemo 2D DIMENSIONS RVDd2.9 (2.9-3.5cm)Left Atrium(2D)3.5 (1.6-4.0cm) IVSd1.3 (0.7-1.1cm)Aortic Root(2D)2.7 (2.0-3.7cm) LVDd4.4 (3.9-5.9cm)LVOT Diameter2.1 (1.8-2.4cm) PWd1.3 (0.7-1.1cm)LVDs3.4 (2.5-4.0cm) FS (%) 30.0 %SV40.1 ml Aortic Valve AoV Peak Daryl.158.2cm/sAoV VTI29.7cm AO Peak GR.10.0mmHgLVOT Peak Daryl.152.2cm/s AO Mean GR.6mmHgAVA (VMAX)3.29cm2 PRESLEY (VTI)3.20cm2 Mitral Valve MV E Lqjhukaq74.1cm/sMV DECEL RHEK940fb MV A Hzibaczk01.1cm/sE/A Ratio0.8 Pulmonary Vein S1 Uleijupe70.4cm/sD2 Plcgkdjl05.7cm/s LEFT VENTRICLE The left ventricle is normal size. There is normal left ventricular wall thickness. The left ventricu lar systolic function is normal and the ejection fraction is within normal range. The Ejection Fracti on is 55-60%. There is normal LV segmental wall motion. Transmitral Doppler flow pattern is Grade I-a bnormal relaxation pattern. RIGHT VENTRICLE The right ventricle is normal size. The right ventricular systolic function is normal. ATRIA The left atrium size is normal. The right atrium size is normal. The interatrial septum is intact wit h no evidence for an atrial septal defect or patent foramen ovale as noted on 2-D or Doppler imaging. AORTIC VALVE The aortic valve is calcified but opens well. Doppler and Color Flow revealed no significant aortic r egurgitation. There is no significant aortic valvular stenosis. MITRAL VALVE The mitral valve is normal in structure and function. There is no evidence of mitral valve prolapse. There is no mitral valve stenosis. Doppler and Color Flow revealed no mitral valve regurgitation note d. TRICUSPID VALVE The tricuspid valve is normal in structure and function. Doppler and Color Flow revealed no tricuspid valve regurgitation noted. There is no tricuspid valve stenosis. PULMONIC VALVE The pulmonic valve is not well visualized. Doppler and Color Flow revealed no pulmonic valvular regur gitation. There is no pulmonic valvular stenosis. GREAT VESSELS The aortic root is normal in size. The ascending aorta is normal in size. The IVC is normal in size a nd collapses >50% with inspiration. PERICARDIAL EFFUSION There is no evidence of significant pericardial effusion. Critical Notification Critical Value: No <Conclusion> The left ventricle is normal size. The left ventricular systolic function is normal and the ejection fraction is within normal range. The Ejection Fraction is 55-60%. There is normal LV segmental wall motion. Doppler and Color Flow revealed no significant aortic regurgitation. There is no significant aortic valvular stenosis. Doppler and Color Flow revealed no mitral valve regurgitation noted. Doppler and Color Flow revealed no tricuspid valve regurgitation noted. Signed by : Gavin Calderón MD Electronically Approved : 01/28/2020 13:58:27
== END | disposition home or self-care (01) ==
LOC: ECHO 09:42
PROVIDERS: ATTEND Internal Medicine Hematology & Oncology
DX: C50.211 Malignant neoplasm of upper-inner quadrant of right female breast (principal); Z92.21 Personal history of antineoplastic chemotherapy
CPT/HCPCS: 93306

== ENCOUNTER → 2020-02-06 | Outpatient (CLI) | payer OTHER ==
[2020-02-06 09:23] LABS: CREATININE 0.8 mg/dL (0.6-1.0); GFR 73.2; POTASSIUM 3.8 mmol/L (3.5-5.1)
[2020-02-06 09:28] LABS: ALBUMIN 3.6 g/dL (3.4-5.0); TOTAL BILIRUBIN 0.3 mg/dL (0.2-1.0); TOTAL PROTEIN 7.3 g/dL (6.4-8.2)
[2020-02-06 09:46] LABS: BASO # 0.1 x10^3/uL (0.0-0.2); BASO % 1 % (0-3); EOS # 0.1 x10^3/uL (0.0-0.7); EOS % 1 % (0-3); HEMATOCRIT 40.3 % (36.0-47.0); HEMOGLOBIN 13.9 g/dL (12.0-15.5); LYMPH # 2.3 x10^3/uL (1.0-4.8); LYMPH % 25 % (24-48); MEAN CORPUSCULAR HEMOGLOBIN 33 pg (25-35); MEAN CORPUSCULAR HGB CONC 34 g/dL (31-37); MEAN CORPUSCULAR VOLUME 97 fL (79-100); MONO # 0.6 x10^3/uL (0.0-1.1); MONO % 6 % (0-9); NEUT # 6.3 x10^3/uL (1.8-7.7); NEUT % 67 % (31-73); PLATELET COUNT 292 x10^3/uL (140-400); RED BLOOD COUNT 4.17 x10^6/uL (3.50-5.40); RED CELL DISTRIBUTION WIDTH 13.1 % (11.5-14.5); WHITE BLOOD COUNT 9.4 x10^3/uL (4.0-11.0)
== END ==
LOC: ONCLAB 09:01
PROVIDERS: ATTEND Internal Medicine Hematology & Oncology
DX: C50.511 Malignant neoplasm of lower-outer quadrant of right female breast (principal)
CPT/HCPCS: 36415; 80053; 85025

== ENCOUNTER → 2020-02-06 | Outpatient (CLI) | payer OTHER ==
--- NOTE | 2020-02-06 09:29 | KCIC ---
EXAM: DUAL ENERGY X-RAY ABSORPTIOMETRY (DEXA). HISTORY: Postmenopausal screening. Breast cancer. FINDINGS: The lowest measured T-score is -2.6 in the lumbar spine, based on a bone mineral density of 0.763 g/cm^2. Refer to the worksheets for full detail. No comparison examinations are available. IMPRESSION: Osteoporosis. Bone mineral density yields a T-score of -2.5 or less. Fracture risk is high. METHODOLOGY: Dual energy x-ray absorptiometry was performed to measure bone mineral density. The following analysis is based on the 2019 Official Positions of the International Society for Clinical Densitometry: Measurements of the hips and the average of L1-L4 are preferred. When the spine and/or hip cannot be feasibly measured or interpreted, or in the setting of hyperparathyroidism, distal radial bone mineral density may be measured. The lumbar spine T-score is based on the average bone mineral density of L1-L4. In the setting of artifact or anatomic abnormality, some lumbar levels may be excluded, and the remaining levels used for calculation. A single lumbar level is not used for diagnosis, and if only a single level is available for assessment, another anatomic site will be used to assign a diagnosis. The hip T-score is based on the bone mineral density measurement of the femoral neck or total proximal femur of either side, whichever is lowest. Bilateral mean values are not used for diagnosis. The forearm T-score is derived from 33% of the distal radius of the nondominant forearm. Electronically signed by: Camleia Blake MD (02/06/2020 9:26 AM) [facility]
== END | disposition home or self-care (01) ==
LOC: KCIC DEXA 07:58
PROVIDERS: ATTEND Internal Medicine Hematology & Oncology
DX: C50.511 Malignant neoplasm of lower-outer quadrant of right female breast (principal); M81.0 Age-related osteoporosis without current pathological fracture
CPT/HCPCS: 77080

== ENCOUNTER → 2020-02-09 | Outpatient (CLI) | payer OTHER ==
[~2020-02-09] MED LIST changes: +HEPARIN PF 500 UNIT/5 ML DISP.SYRIN. IVP ONE; +IOHEXOL 240 MG/ML 50ML VIAL. PO ONE; +IOHEXOL 300 MG/ML 100ML VIAL. IV ONE
--- NOTE | 2020-02-09 18:56 | RAD ---
CT of chest, abdomen and pelvis with contrast: Reason for examination: History of right breast cancer with mastectomy. Evaluate extent of disease. Helical images were obtained through the chest, abdomen and pelvis with intravenous administration of 75 cc Omnipaque 300 and 30 cc Omnipaque 240 was given orally. Reconstruction was performed in sagittal and coronal planes. Exposure: One or more of the following individualized dose reduction techniques were utilized for this examination: 1. Automated exposure control 2. Adjustment of the mA and/or kV according to patient size 3. Use of iterative reconstruction technique. No abnormality seen at the thyroid gland. The trachea and mainstem bronchi show no intraluminal lesions. No abnormality seen at the esophagus. The thoracic aorta shows normal course and caliber with some arteriosclerotic vascular calcification. The heart size is normal with no significant pericardial effusion. There are bullous emphysematous changes bilaterally. In the right upper lobe anteriorly, there appears to be a pleural-based bilobed mass present measuring approximately 2 cm in greatest dimension. Malignancy cannot be excluded. No other infiltrates or pleural effusions are seen. There is no pneumothorax. No acute bony abnormalities are seen in the thorax. No abnormality seen at the liver, spleen, adrenal glands or pancreas. There is cholelithiasis. The abdominal aorta and inferior vena cava show no acute abnormalities but there is arteriosclerotic vascular calcification. No abnormality seen at the appendix. There are diverticuli in the colon but no evidence of diverticulitis or colitis. No abnormality seen at the stomach or duodenum. Small intestinal tract shows no abnormal dilatation, wall thickening or obstruction. There appears to be complex mass with both cystic and solid components posteriorly at the upper pole of the left kidney measuring approximately 5 cm craniocaudally, 4.7 cm transversely and 3.5 cm in AP dimension. There is also a small hypodense lesion in the lower pole of the right kidney laterally measuring 1.2 cm in greatest. No hydronephrosis, renal calculi or obstructive uropathy is seen. No abnormality seen at the bladder, uterus or ovaries. No free fluid or free air seen in the abdomen or pelvis. There are severe degenerative disc changes at the L4-5 and L5-S1 disc levels. No lytic or blastic bone lesions are seen. IMPRESSION: 2 cm pleural-based bilateral mass in the right upper lobe. Malignancy cannot be excluded. Bullous emphysema. Complex mass measuring 5 cm in greatest dimension posteriorly in the upper pole of the left kidney. Small 1.2 cm hypoechoic mass in the lower pole laterally in the right kidney. Further evaluation with ultrasound and PET scan should be considered. Severe degenerative disc disease at the abdominal for 5 and L5-S1 disc levels. Electronically signed by: Chula Nieto MD (02/09/2020 6:54 PM) [facility]
== END | disposition home or self-care (01) ==
LOC: CT 10:47
PROVIDERS: ATTEND Radiology Radiation Oncology
DX: C50.511 Malignant neoplasm of lower-outer quadrant of right female breast (principal); I70.0 Atherosclerosis of aorta; K80.20 Calculus of gallbladder without cholecystitis without obstruction; K57.30 Diverticulosis of large intestine without perforation or abscess without bleeding; N28.89 Other specified disorders of kidney and ureter; R91.8 Other nonspecific abnormal finding of lung field; N28.1 Cyst of kidney, acquired; N28.9 Disorder of kidney and ureter, unspecified; M47.817 Spondylosis without myelopathy or radiculopathy, lumbosacral region; J43.8 Other emphysema
CPT/HCPCS: 71260; 74177; J1642; Q9966; Q9967

== ENCOUNTER → 2020-02-27 | Outpatient (CLI) | payer OTHER ==
[~2020-02-27] MED LIST changes: -HEPARIN PF 500 UNIT/5 ML DISP.SYRIN. IVP ONE; -IOHEXOL 240 MG/ML 50ML VIAL. PO ONE; -IOHEXOL 300 MG/ML 100ML VIAL. IV ONE
[2020-02-27 09:20] LABS: BASO # 0.1 x10^3/uL (0.0-0.2); BASO % 1 % (0-3); EOS # 0.1 x10^3/uL (0.0-0.7); EOS % 1 % (0-3); HEMATOCRIT 38.7 % (36.0-47.0); HEMOGLOBIN 13.4 g/dL (12.0-15.5); LYMPH # 2.4 x10^3/uL (1.0-4.8); LYMPH % 25 % (24-48); MEAN CORPUSCULAR HEMOGLOBIN 33 pg (25-35); MEAN CORPUSCULAR HGB CONC 35 g/dL (31-37); MEAN CORPUSCULAR VOLUME 95 fL (79-100); MONO # 0.6 x10^3/uL (0.0-1.1); MONO % 6 % (0-9); NEUT # 6.3 x10^3/uL (1.8-7.7); NEUT % 66 % (31-73); PLATELET COUNT 361 x10^3/uL (140-400); RED BLOOD COUNT 4.06 x10^6/uL (3.50-5.40); RED CELL DISTRIBUTION WIDTH 13.5 % (11.5-14.5); WHITE BLOOD COUNT 9.5 x10^3/uL (4.0-11.0)
[2020-02-27 09:27] LABS: CALCIUM 9.2 mg/dL (8.5-10.1); CREATININE 0.8 mg/dL (0.6-1.0); GFR 73.2; POTASSIUM 3.7 mmol/L (3.5-5.1)
[2020-02-27 09:33] LABS: ALBUMIN 3.5 g/dL (3.4-5.0); ALBUMIN/GLOBULIN RATIO 0.9 (1.0-1.7); TOTAL BILIRUBIN 0.4 mg/dL (0.2-1.0); TOTAL PROTEIN 7.4 g/dL (6.4-8.2)
== END | disposition home or self-care (01) ==
LOC: ONCLAB 09:08
PROVIDERS: ATTEND Internal Medicine Hematology & Oncology
DX: C50.511 Malignant neoplasm of lower-outer quadrant of right female breast (principal)
CPT/HCPCS: 36415; 80053; 82306; 85025

== ENCOUNTER 2020-03-12 08:46 | Outpatient (CLI) | payer OTHER ==
[2020-03-12] VITALS (13 sets, daily range): BP systolic 118–191; BP diastolic 67–109
[~2020-03-12] VITALS: Ht 170.2 cm; Wt 90.7 kg
[2020-03-12] MEDS ORDERED: LIDOCAINE WITH 8.4% SOD BICARB 3 ML DISP.SYRIN. ONE ×2 (09:19)
[2020-03-12 09:28] LABS: BASO # 0.1 x10^3/uL (0.0-0.2); BASO % 1 % (0-3); EOS # 0.1 x10^3/uL (0.0-0.7); EOS % 2 % (0-3); HEMATOCRIT 38.2 % (36.0-47.0); HEMOGLOBIN 13.5 g/dL (12.0-15.5); LYMPH # 2.3 x10^3/uL (1.0-4.8); LYMPH % 27 % (24-48); MEAN CORPUSCULAR HEMOGLOBIN 33 pg (25-35); MEAN CORPUSCULAR HGB CONC 35 g/dL (31-37); MEAN CORPUSCULAR VOLUME 94 fL (79-100); MONO # 0.8 x10^3/uL (0.0-1.1); MONO % 10 % (0-9); NEUT # 5.4 x10^3/uL (1.8-7.7); NEUT % 62 % (31-73); PLATELET COUNT 259 x10^3/uL (140-400); RED BLOOD COUNT 4.09 x10^6/uL (3.50-5.40); RED CELL DISTRIBUTION WIDTH 13.8 % (11.5-14.5); WHITE BLOOD COUNT 8.8 x10^3/uL (4.0-11.0)
[2020-03-12 09:41] LABS: PROTHROMBIN TIME PATIENT 11.8 SEC (11.7-14.0)
[2020-03-12] MEDS ORDERED: fentaNYL PF VIAL 100 MCG/2 ML VIAL ONE ×2 (09:51→10:32)
[2020-03-12] MEDS ORDERED: MIDAZOLAM HCL/PF 2 MG/2 ML VIAL. ONE ×2 (09:51→10:32)
[2020-03-12] MEDS ORDERED: LIDOCAINE WITH 8.4% SOD BICARB 3 ML DISP.SYRIN. IJ ONE (10:00)
[2020-03-12] MEDS ORDERED: MIDAZOLAM HCL/PF 2 MG/2 ML VIAL. IV ONE (10:00)
[2020-03-12] MEDS ORDERED: fentaNYL PF VIAL 100 MCG/2 ML VIAL IV ONE (10:00)
--- NOTE | 2020-03-12 10:53 | PDOC ---
BRIEF OPERATIVE NOTE Pre-Op Diagnosis RUL lung nodule, hx of breast cancer Post-Op Diagnosis same Procedure Performed CT lung biopsy Surgeon Arina Anesthesia Type: Conscious Sedation Specimens Obtained 6 x 20g core fragments Findings RUL lung nodule biopsy Complications No immediate JOSELINE MITCHELL MD Mar 12, 2020 10:53
[2020-03-12] MEDS ORDERED: KADCYLA IV (11:32)
[2020-03-12] MEDS ORDERED: OLME40TA12 PO (11:32)
--- NOTE | 2020-03-12 13:33 | NUR ---
pt A&O x3. denies pain, nausea or dizziness. VSS. ambulated to BR w/o problem. dressing on rt chest is D&I . d/c'd left chest port access. no bleeding- dressing applied. d/c instructions given , questions answered. Cxray ok. out to vehicle per w/c- to drive home
--- NOTE | 2020-03-12 13:44 | RAD ---
Procedure: CT-guided right lung biopsy Clinical Indication: Adult female with history of breast cancer and right upper lobe lung nodule. Sedation: Conscious sedation was administered with a total intraprocedural kczm-rg-oeeo time of 30 minutes. The patient was monitored by a qualified independent observer throughout the time of sedation. Please refer to the medical record for exact doses of medications utilized to achieve moderate sedation. Antibiotics: None Sterility: The procedure was performed in its entirety using appropriate elements of sterile technique. Consent: The procedure was explained in its entirety to the patient or the patients designated sales representative leather goods by a member of the treatment team, including a discussion of the risks, benefits and commonly accepted alternatives to the procedure, as well as the expected consequences of no therapy whatsoever. Discussion of the risks included, but was not limited to, those that are most frequent and those that are rare but possibly severe or life-threatening, as well as the possibility of unforeseen complications. Technique and Findings: Following informed consent, the patient was prepped and draped in usual sterile fashion. Preliminary CT scan of the area of interest was performed. 1% lidocaine was used to achieve local anesthesia. A small dermatotomy was made. Under periodic CT surveillance, a 19-gauge needle guide was advanced towards the target lesion. 6 separate 20-gauge core biopsy passes were then performed, with all specimens preserved in formalin. A blood patch was applied as the needle guide was removed and hemostasis was achieved with manual compression. Complications: No immediate Impression: 1. CT-guided right upper lobe lung nodule biopsy as described. PQRS Compliance Statement: One or more of the following individualized dose reduction techniques were utilized for this examination: 1. Automated exposure control 2. Adjustment of the mA and/or kV according to patient size 3. Use of iterative reconstruction technique
--- NOTE | 2020-03-12 16:32 | RAD ---
Portable AP upright inspiration and expiration views of the chest Clinical indications: Status post right lung biopsy. FINDINGS: No pneumothorax is seen after lung biopsy. There is nodular infiltrate present within the right upper lobe. No significant pleural effusion is seen. The heart size and mediastinum are unremarkable. Left IJ Port-A-Cath tip is seen within the mid superior vena cava above the level of the right atrium. IMPRESSION: Status post right lung biopsy. No pneumothorax is seen. Electronically signed by: Jose Carlos Hanna MD (03/12/2020 4:29 PM) [id number]
== END 2020-03-12 13:30 | disposition home or self-care (01) ==
LOC: INTRAD 08:46
PROVIDERS: ATTEND Radiology Radiation Oncology
DX: R91.1 Solitary pulmonary nodule (principal); I10 Essential (primary) hypertension; J44.9 Chronic obstructive pulmonary disease, unspecified; F17.210 Nicotine dependence, cigarettes, uncomplicated; Z79.899 Other long term (current) drug therapy; Z79.01 Long term (current) use of anticoagulants; Z85.3 Personal history of malignant neoplasm of breast
CPT/HCPCS: 32405; 36415; 71046; 77012; 85025; 85610; 99152; 99153; J2250; J3010; J3490

== ENCOUNTER → 2020-03-19 | Outpatient (CLI) | payer OTHER ==
[2020-03-12 12:45] VITALS: BP 135/80
[~2020-03-19] MED LIST changes: +KADCYLA IV; +OLME40TA12 PO
[2020-03-19 08:53] LABS: BASO # 0.1 x10^3/uL (0.0-0.2); BASO % 1 % (0-3); EOS # 0.2 x10^3/uL (0.0-0.7); EOS % 2 % (0-3); HEMATOCRIT 38.7 % (36.0-47.0); HEMOGLOBIN 13.1 g/dL (12.0-15.5); LYMPH # 2.2 x10^3/uL (1.0-4.8); LYMPH % 28 % (24-48); MEAN CORPUSCULAR HEMOGLOBIN 32 pg (25-35); MEAN CORPUSCULAR HGB CONC 34 g/dL (31-37); MEAN CORPUSCULAR VOLUME 95 fL (79-100); MONO # 0.6 x10^3/uL (0.0-1.1); MONO % 8 % (0-9); NEUT # 4.9 x10^3/uL (1.8-7.7); NEUT % 61 % (31-73); PLATELET COUNT 240 x10^3/uL (140-400); RED BLOOD COUNT 4.09 x10^6/uL (3.50-5.40); RED CELL DISTRIBUTION WIDTH 13.7 % (11.5-14.5)
[2020-03-19 08:59] LABS: CALCIUM 9.3 mg/dL (8.5-10.1); CREATININE 0.8 mg/dL (0.6-1.0); GFR 73.2; POTASSIUM 3.8 mmol/L (3.5-5.1)
[2020-03-19 09:05] LABS: ALBUMIN 3.4 g/dL (3.4-5.0); ALBUMIN/GLOBULIN RATIO 0.9 (1.0-1.7); TOTAL BILIRUBIN 0.3 mg/dL (0.2-1.0); TOTAL PROTEIN 7.2 g/dL (6.4-8.2)
== END ==
LOC: ONCLAB 08:00
PROVIDERS: ATTEND Internal Medicine Hematology & Oncology
DX: C50.511 Malignant neoplasm of lower-outer quadrant of right female breast (principal)
CPT/HCPCS: 36415; 80053; 85025

== ENCOUNTER → 2020-04-09 | Outpatient (CLI) | payer OTHER ==
[2020-03-12 12:45] VITALS: BP 135/80
[2020-04-09 10:11] LABS: BASO % 1 % (0-3); EOS # 0.1 x10^3/uL (0.0-0.7); EOS % 2 % (0-3); HEMATOCRIT 39.7 % (36.0-47.0); HEMOGLOBIN 13.8 g/dL (12.0-15.5); LYMPH % 25 % (24-48); MEAN CORPUSCULAR HEMOGLOBIN 33 pg (25-35); MEAN CORPUSCULAR HGB CONC 35 g/dL (31-37); MEAN CORPUSCULAR VOLUME 95 fL (79-100); MONO # 0.5 x10^3/uL (0.0-1.1); MONO % 7 % (0-9); NEUT # 5.2 x10^3/uL (1.8-7.7); NEUT % 66 % (31-73); PLATELET COUNT 198 x10^3/uL (140-400); RED BLOOD COUNT 4.17 x10^6/uL (3.50-5.40); RED CELL DISTRIBUTION WIDTH 14.2 % (11.5-14.5); WHITE BLOOD COUNT 7.9 x10^3/uL (4.0-11.0)
[2020-04-09 10:17] LABS: CALCIUM 9.7 mg/dL (8.5-10.1); CREATININE 0.7 mg/dL (0.6-1.0); GFR 85.4; POTASSIUM 3.9 mmol/L (3.5-5.1)
[2020-04-09 10:25] LABS: ALBUMIN 3.5 g/dL (3.4-5.0); ALBUMIN/GLOBULIN RATIO 0.9 (1.0-1.7); TOTAL BILIRUBIN 0.6 mg/dL (0.2-1.0); TOTAL PROTEIN 7.4 g/dL (6.4-8.2)
== END ==
LOC: ONCLAB 09:24
PROVIDERS: ATTEND Internal Medicine Hematology & Oncology
DX: C50.511 Malignant neoplasm of lower-outer quadrant of right female breast (principal)
CPT/HCPCS: 36415; 80053; 85025

== ENCOUNTER → 2020-04-30 | Outpatient (CLI) | payer OTHER ==
[2020-03-12 12:45] VITALS: BP 135/80
[2020-04-30 09:24] LABS: BASO # 0.1 x10^3/uL (0.0-0.2); BASO % 1 % (0-3); EOS # 0.2 x10^3/uL (0.0-0.7); EOS % 2 % (0-3); HEMOGLOBIN 13.9 g/dL (12.0-15.5); LYMPH # 2.1 x10^3/uL (1.0-4.8); LYMPH % 27 % (24-48); MEAN CORPUSCULAR HEMOGLOBIN 32 pg (25-35); MEAN CORPUSCULAR HGB CONC 34 g/dL (31-37); MEAN CORPUSCULAR VOLUME 95 fL (79-100); MONO # 0.6 x10^3/uL (0.0-1.1); MONO % 7 % (0-9); NEUT # 4.8 x10^3/uL (1.8-7.7); NEUT % 63 % (31-73); PLATELET COUNT 198 x10^3/uL (140-400); RED BLOOD COUNT 4.32 x10^6/uL (3.50-5.40); RED CELL DISTRIBUTION WIDTH 14.4 % (11.5-14.5); WHITE BLOOD COUNT 7.7 x10^3/uL (4.0-11.0)
[2020-04-30 09:31] LABS: CALCIUM 9.4 mg/dL (8.5-10.1); CREATININE 0.8 mg/dL (0.6-1.0); GFR 73.2; POTASSIUM 3.7 mmol/L (3.5-5.1)
[2020-04-30 09:37] LABS: ALBUMIN 3.6 g/dL (3.4-5.0); ALBUMIN/GLOBULIN RATIO 0.9 (1.0-1.7); TOTAL BILIRUBIN 0.4 mg/dL (0.2-1.0); TOTAL PROTEIN 7.7 g/dL (6.4-8.2)
== END ==
LOC: ONCLAB 09:04
PROVIDERS: ATTEND Internal Medicine Hematology & Oncology
DX: C50.511 Malignant neoplasm of lower-outer quadrant of right female breast (principal)
CPT/HCPCS: 36415; 80053; 85025

== ENCOUNTER → 2020-05-21 | Outpatient (CLI) | payer OTHER ==
[2020-03-12 12:45] VITALS: BP 135/80
[2020-05-21 10:12] LABS: BASO % 1 % (0-3); EOS # 0.1 x10^3/uL (0.0-0.7); EOS % 2 % (0-3); HEMATOCRIT 41.1 % (36.0-47.0); HEMOGLOBIN 14.1 g/dL (12.0-15.5); LYMPH # 1.6 x10^3/uL (1.0-4.8); LYMPH % 25 % (24-48); MEAN CORPUSCULAR HEMOGLOBIN 33 pg (25-35); MEAN CORPUSCULAR HGB CONC 34 g/dL (31-37); MEAN CORPUSCULAR VOLUME 95 fL (79-100); MONO # 0.6 x10^3/uL (0.0-1.1); MONO % 9 % (0-9); NEUT # 4.2 x10^3/uL (1.8-7.7); NEUT % 63 % (31-73); PLATELET COUNT 188 x10^3/uL (140-400); RED BLOOD COUNT 4.33 x10^6/uL (3.50-5.40); WHITE BLOOD COUNT 6.6 x10^3/uL (4.0-11.0)
[2020-05-21 10:31] LABS: CALCIUM 9.3 mg/dL (8.5-10.1); CREATININE 0.8 mg/dL (0.6-1.0); GFR 73.2; POTASSIUM 3.6 mmol/L (3.5-5.1)
[2020-05-21 10:36] LABS: ALBUMIN 3.5 g/dL (3.4-5.0); ALBUMIN/GLOBULIN RATIO 0.9 (1.0-1.7); TOTAL BILIRUBIN 0.5 mg/dL (0.2-1.0); TOTAL PROTEIN 7.6 g/dL (6.4-8.2)
== END ==
LOC: ONCLAB 09:51
PROVIDERS: ATTEND Internal Medicine Hematology & Oncology
DX: C50.511 Malignant neoplasm of lower-outer quadrant of right female breast (principal)
CPT/HCPCS: 36415; 80053; 85025

== ENCOUNTER 2020-05-30 12:51 | Inpatient (IN) | payer OTHER ==
[~2020-05-30] VITALS: Ht 185.4 cm; Wt 107.5 kg
[~2020-05-30 12:51] MED LIST changes: +MORPHINE SULFATE 4 MG/ML VIAL. IV PRN
[2020-05-30 13:22] LABS: BASO % 1 % (0-3); EOS % 0 % (0-3); HEMATOCRIT 45.3 % (36.0-47.0); HEMOGLOBIN 15.8 g/dL (12.0-15.5); LYMPH # 0.9 x10^3/uL (1.0-4.8); LYMPH % 20 % (24-48); MEAN CORPUSCULAR HEMOGLOBIN 32 pg (25-35); MEAN CORPUSCULAR HGB CONC 35 g/dL (31-37); MEAN CORPUSCULAR VOLUME 91 fL (79-100); MONO # 0.7 x10^3/uL (0.0-1.1); MONO % 16 % (0-9); NEUT # 2.9 x10^3/uL (1.8-7.7); NEUT % 63 % (31-73); PLATELET COUNT 84 x10^3/uL (140-400); RED BLOOD COUNT 4.98 x10^6/uL (3.50-5.40); RED CELL DISTRIBUTION WIDTH 14.9 % (11.5-14.5); WHITE BLOOD COUNT 4.6 x10^3/uL (4.0-11.0)
[2020-05-30] MEDS ORDERED: IV NORMAL SALINE 1000ML BAG 1,000 ML IV ONE (13:30)
[2020-05-30] MEDS ORDERED: ACETAMINOPHEN 500 MG TABLET PO ONE (13:30)
[2020-05-30 13:31] LABS: CALCIUM 8.6 mg/dL (8.5-10.1); CREATININE 1.6 mg/dL (0.6-1.0); GFR 32.9; POTASSIUM 3.4 mmol/L (3.5-5.1)
--- NOTE | 2020-05-30 13:33 | ED.ADGEN ---
Past Medical History Past Medical History: Cancer (breast cancer), COPD, Hypertension Past Surgical History: Other (R shoulder rotator cuff) Additional Past Surgical Histo: R masectomy, L port Smoking Status: Current Every Day Smoker (quit smoking 1 week ago) Alcohol Use: None Drug Use: None General Adult EDM: Chief Complaint: WEAKNESS/GENERALIZED HPI: HPI: Patient is a 59 year old female, accompanied by her , who presents to the emergency department with complaints of generalized weakness for the last 7 days. Patient states she had her last chemotherapy treatment for right-sided breast cancer on May [id number]. She states for the last week she is just felt fatigued and weak. She states she is also had a decreased appetite. Patient denies any fever, cough, increased shortness of breath, chest pain, abdominal pain, nausea, vomiting, diarrhea, headache, or loss of taste/smell. Patient denies any swelling of her lower extremities. She has a history of COPD and states that her breathing is not more labored than usual. She constantly wears 4 L of oxygen via nasal cannula due to her COPD. She states that she stopped smoking approximately 1 week ago. Patient denies any known exposure to COVID-19, she states she has been staying home. 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 The patient currently denies any pain. She reports she had a right mastectomy back in October, she denies any redness at her surgical site. Patient denies any redness, or warmth at her Port-A-Cath site. Patient reports that her oncologist is Dr. Glasgow, she is currently on a chemotherapy treatment that she is not supposed to take any ibuprofen with. Review of Systems: Review of Systems: Complete ROS is negative unless otherwise noted in HPI. Current Medications: Current Medications Medications (Trade) Dose Ordered Sig/Micaela Start Time Stop Time Status Last Admin Dose Admin Acetaminophen (Tylenol) 1,000 mg 1X ONCE 05/30/20 13:30 05/30/20 13:31 DC 05/30/20 14:21 1,000 MG Cefepime HCl (Maxipime) 1 gm 1X ONCE 05/30/20 15:00 05/30/20 15:01 Dextrose (Dextrose 50%-Water Syringe) 12.5 gm PRN Q15MIN PRN 05/30/20 14:30 Docusate Sodium (Colace) 100 mg PRN DAILY PRN 05/30/20 14:30 Enoxaparin Sodium (Lovenox 40mg Syringe) 40 mg Q24H 05/30/20 15:00 Morphine Sulfate (Morphine Sulfate) 2 mg PRN Q2HR PRN 05/30/20 04:00 05/31/20 03:59 UNV Ondansetron HCl (Zofran) 4 mg PRN Q6HRS PRN 05/30/20 14:30 Prochlorperazine Edisylate (Compazine) 10 mg Q6HRS PRN 05/30/20 14:30 UNV Sennosides (Senna) 17.2 mg PRN BID PRN 05/30/20 14:30 Sodium Chloride 1,000 ml @ 125 mls/hr Q8H 05/30/20 13:45 05/31/20 13:44 05/30/20 14:20 125 MLS/HR Allergies: Allergies: Allergies Coded Allergies Type Severity Reaction Last Updated Verified ibuprofen Adverse Reaction Severe Unknown 05/30/20 Yes Physical Exam: PE: See Above Constitutional: Well developed, well nourished, no acute distress, fatigued, ill appearance HENT: Normocephalic, atraumatic, bilateral external ears normal, nose normal. [] Eyes: PERRLA, EOMI, conjunctiva normal, no discharge. [] Neck: Normal range of motion, no stridor. [] Cardiovascular:Heart rate regular rhythm Lungs & Thorax: Respirations even and unlabored, no retractions, no respiratory distress; right mastectomy Abdomen: soft, no tenderness Skin: Flushed, hot, dry, no rash. [] Extremities: No cyanosis, no clubbing, ROM intact, no edema. [] Neurologic: Alert and oriented X 3, normal motor function, normal sensory function, no focal deficits noted. [] Psychologic: Affect normal, judgement normal, mood normal. [] Current Patient Data: Labs: Laboratory Tests Test 05/30/20 13:10 White Blood Count 4.6 x10^3/uL (4.0-11.0) Red Blood Count 4.98 x10^6/uL (3.50-5.40) Hemoglobin 15.8 g/dL (12.0-15.5) H Hematocrit 45.3 % (36.0-47.0) Mean Corpuscular Volume 91 fL (79-100) Mean Corpuscular Hemoglobin 32 pg (25-35) Mean Corpuscular Hemoglobin Concent 35 g/dL (31-37) Red Cell Distribution Width 14.9 % (11.5-14.5) H Platelet Count 84 x10^3/uL (140-400) L Neutrophils (%) (Auto) 63 % (31-73) Lymphocytes (%) (Auto) 20 % (24-48) L Monocytes (%) (Auto) 16 % (0-9) H Eosinophils (%) (Auto) 0 % (0-3) Basophils (%) (Auto) 1 % (0-3) Neutrophils # (Auto) 2.9 x10^3/uL (1.8-7.7) Lymphocytes # (Auto) 0.9 x10^3/uL (1.0-4.8) L Monocytes # (Auto) 0.7 x10^3/uL (0.0-1.1) Eosinophils # (Auto) 0.0 x10^3/uL (0.0-0.7) Basophils # (Auto) 0.0 x10^3/uL (0.0-0.2) Sodium Level 124 mmol/L (136-145) L Potassium Level 3.4 mmol/L (3.5-5.1) L Chloride Level 88 mmol/L (98-107) L Carbon Dioxide Level 25 mmol/L (21-32) Anion Gap 11 (6-14) Blood Urea Nitrogen 70 mg/dL (7-20) H Creatinine 1.6 mg/dL (0.6-1.0) H Estimated GFR (Cockcroft-Gault) 32.9 BUN/Creatinine Ratio 44 (6-20) H Glucose Level 125 mg/dL (70-99) H Lactic Acid Level 1.3 mmol/L (0.4-2.0) Calcium Level 8.6 mg/dL (8.5-10.1) Magnesium Level 2.2 mg/dL (1.8-2.4) Total Bilirubin 0.6 mg/dL (0.2-1.0) Aspartate Amino Transferase (AST) 121 U/L (15-37) H Alanine Aminotransferase (ALT) 81 U/L (14-59) H Alkaline Phosphatase 49 U/L (46-116) Total Protein 7.4 g/dL (6.4-8.2) Albumin 3.2 g/dL (3.4-5.0) L Albumin/Globulin Ratio 0.8 (1.0-1.7) L Laboratory Tests 05/30/20 13:10 Laboratory Tests 05/30/20 13:10 Vital Signs: Vital Signs Date Time Temp Pulse Resp B/P (MAP) Pulse Ox O2 Delivery O2 Flow Rate FiO2 05/30/20 13:25 101.9 99 20 115/72 (86) 98 Nasal Cannula 4.0 101.9 EKG: EKG: [] Heart Score: Risk Factors: Risk Factors: DM, Current or recent (<one month) smoker, HTN, HLP, family history of CAD, obesity. Risk Scores: Score 0 - 3: 2.5% MACE over next 6 weeks - Discharge Home Score 4 - 6: 20.3% MACE over next 6 weeks - Admit for Clinical Observation Score 7 - 10: 72.7% MACE over next 6 weeks - Early Invasive Strategies Radiology/Procedures: Radiology/Procedures: [] Course & Med Decision Making: Course & Med Decision Making Pertinent Labs and Imaging studies reviewed. (See chart for details) 1335- I spoke with Dr. Glasgow about his patient in the ER advised that the patient will need to be admitted to the hospital for PUI, fever, dehydration, ZACARIAS, and hyponatremia. COVID, flu, and UA results are pending. Will admit the patient to the hospitalist service. 1400-spoke with Dr. Bartlett who is the admitting physician, and care was assumed following discussion of patient. Will admit patient to med/surg for PUI, fever, dehydration, ZACARIAS, and hyponatremia Patient's vital signs stable. Patient remains afebrile, appears nontoxic, respirations even and unlabored. Patient will be admitted to the med/surg floor. Patient's case and plan of care also discussed with [I have reviewed the PA/MANAGER IN TRAINING's note and Plan of Care. I was available for consultation as needed during the patient's visit in the emergency department. I agree with the clinical impression, plans and disposition.] Terrieon Disclaimer: Terrieon Disclaimer: This electronic medical record was generated, in whole or in part, using a voice recognition dictation system. Departure Departure Impression: Primary Impression: Person under investigation for COVID-19 Additional Impressions: Fever ZACARIAS (acute kidney injury) Dehydration Hyponatremia Hx of breast cancer Admitting Physician: ELAN (TORITO) Condition: STABLE Referrals: LYSSA FIGUEROA DO (PCP) Problem Qualifiers Additional Impressions: Fever Fever type: unspecified Qualified Codes: R50.9 - Fever, unspecified BIPIN MCCURDY APRN May 30, 2020 13:32 ALEJANDRO SMITH MD May 30, 2020 14:39
[2020-05-30 13:35] LABS: ALBUMIN 3.2 g/dL (3.4-5.0); TOTAL PROTEIN 7.4 g/dL (6.4-8.2)
[2020-05-30 13:36] LABS: ALBUMIN/GLOBULIN RATIO 0.8 (1.0-1.7); MAGNESIUM 2.2 mg/dL (1.8-2.4); TOTAL BILIRUBIN 0.6 mg/dL (0.2-1.0)
--- NOTE | 2020-05-30 13:48 | EKG ---
[facility] [address] [place] [id number] Test Date: 2020-05-30 Test Time: 13:31:21 Pat Name: COCO NOYOLA Department: Room: Gender: F Yard Supervisor: : 1960 Requested By: BIPIN MCCURDY Order Number: [id number] Reading MD: Measurements Intervals [place] Rate: 99 P: 51 SC: 140 QRS: -24 QRSD: 76 T: 41 QT: 374 QTc: 486 Interpretive Statements SINUS RHYTHM LEFTWARD AXIS QRS(T) CONTOUR ABNORMALITY CONSISTENT WITH INFERIOR INFARCT PROBABLY OLD ABNORMAL ECG RI6.02 No previous ECG available for comparison
--- NOTE | 2020-05-30 13:56 | PDOC1 ---
History and Physical Date of Service: DOS: DATE: 05/30/20 TIME: 13:54 Chief Complaint: Chief Complain: generalized weakness History of Present Illness: HPI: 59 year old female, accompanied by her , who presents to the emergency department with complaints of generalized weakness for the last 7 days. Patient states she had her last chemotherapy treatment for right-sided breast cancer on May [id number]. She states for the last week she is just felt fatigued and weak. She states she is also had a decreased appetite. Patient denies any fever, cough, increased shortness of breath, chest pain, abdominal pain, nausea, vomiting, diarrhea, headache, or loss of taste/smell. Patient denies any swelling of her lower extremities. She has a history of COPD and states that her breathing is not more labored than usual. She constantly wears 4 L of oxygen via nasal cannula due to her COPD. She states that she stopped smoking approximately 1 week ago. Patient denies any known exposure to COVID-19, she states she has been staying home. 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 The patient currently denies any pain. She reports she had a right mastectomy back in October, she denies any redness at her surgical site. Patient denies any redness, or warmth at her Port-A-Cath site. Patient reports that her oncologist is Dr. Glasgow, she is currently on a chemotherapy treatment that she is not supposed to take any ibuprofen with. Past Medical/Surgical History: PMH/PSH: Past Medical History: Cancer (breast cancer), COPD, Hypertension Past Surgical History: R shoulder rotator cuff, R masectomy, L port Allergies: Allergies: Coded Allergies: ibuprofen (Verified Adverse Reaction, Severe, Unknown, 05/30/20) NOT SUPPOSED TO TAKE IBUPROFEN WITH HER CHEMO MEDICATION Family History: Family History: Reviewed with no relevant findings Social History: Social History: Smoking Status: Current Every Day Smoker (quit smoking 1 week ago) Alcohol Use: None Drug Use: None Current Medications: Current Medications Current Medications Sodium Chloride 1,000 ml @ 1,000 mls/hr 1X ONCE IV Last administered on 05/30/20at 13:27; Start 05/30/20 at 13:30; Stop 05/30/20 at 14:29 Acetaminophen (Tylenol) 1,000 mg 1X ONCE PO ; Start 05/30/20 at 13:30; Stop 05/30/20 at 13:31; Status DC Sodium Chloride 1,000 ml @ 125 mls/hr Q8H IV ; Start 05/30/20 at 13:45; Stop 05/31/20 at 13:44 Active Scripts Active Reported Benicar (Olmesartan Medoxomil) 40 Mg Tablet 1 Tab PO DAILY 30 Days [kadcyla] 1 Ea IV UD chemotherapy every 3 weeks Chantix (Varenicline Tartrate) 1 Mg Tablet 1 Mg PO BID Hydrochlorothiazide Tablet (Hydrochlorothiazide) 25 Mg Tablet 12.5 Mg PO DAILY Hydralazine Hcl 10 Mg Tablet 10 Mg PO DAILY Ventolin Hfa Inhaler (Albuterol Sulfate) 18 Gm Hfa.aer.ad 2 Puff INH PRN Q4-6HRS PRN Breo Ellipta 100-25 Mcg Inh (Fluticasone/Vilanterol) 1 Each Aer.pow.ba 2 Puff IH DAILY ROS: Review of Systems Review of System REVIEW OF SYSTEMS: GENERAL: Denies weakness SKIN: No bruising, hair changes or rashes. EYES: No blurred, double or loss of vision. NOSE AND THROAT: No history of nosebleeds, hoarseness or sore throat. HEART: No history of palpitations, chest pain or shortness of breath on exertion. LUNGS: Denies cough, hemoptysis, wheezing or shortness of breath. GASTROINTESTINAL: Denies changes in appetite, nausea, vomiting, diarrhea or constipation. GENITOURINARY: No history of frequency, urgency, hesitancy or nocturia. NEUROLOGIC: Denies history of numbness, tingling, or tremor. PSYCHIATRIC: No history of panic, anxiety or depression. ENDOCRINE: No history of heat or cold intolerance, polyuria or polydipsia. EXTREMITIES: Denies joint pain, pain on walking or stiffness. Physical Exam: Vital Signs: Vital Signs Date Time Temp Pulse Resp B/P (MAP) Pulse Ox O2 Delivery O2 Flow Rate FiO2 05/30/20 13:25 101.9 99 20 115/72 (86) 98 Nasal Cannula 4.0 101.9 Physcial Exam: GEN: No apparent distress. Alert and oriented HEENT: Normal cephalic, atraumatic, external auditory canals are patent EYES: Extraocular muscles are intact, pupil are equally round and reactive to light and accommodation MUSCULOSKELETAL: Well developed , well nourished, good range of motion ENDOCRINE: No thyromegaly was palpated LYMPHATICS: No cervical chain or axillary nodes were noted HEMATOPOIETIC: No bruising NECK: Supple, no JVD, no thyromegaly was noted LUNGS: Clear to auscultation in all lung buchanan without rhonchi or wheezing HEART: RRR, S!, S2 present. Peripheral pulses intact, no obvious murmurs noted ABDOMEN: Soft, nontender. Positive bowel sounds, no organomegaly, normal bowel sounds EXTREMITIES: Without clubbing, cyanosis, or edema. Pedal pulses intact. Negative Homans sign NEUROLOGIC: Normal speech and tone. A&O x 3, moves all extremities, no ob vious focal deficits PSYCHIATRIC: Normal affect, normal mood. Stable SKIN: No ulcerations or rashes, good skin turgor, no jaundice VASCULAR: Good capillary refill, neurovascular bundle appears to be intact Labs: Labs: Laboratory Tests Test 05/30/20 13:10 White Blood Count 4.6 x10^3/uL (4.0-11.0) Red Blood Count 4.98 x10^6/uL (3.50-5.40) Hemoglobin 15.8 g/dL (12.0-15.5) Hematocrit 45.3 % (36.0-47.0) Mean Corpuscular Volume 91 fL (79-100) Mean Corpuscular Hemoglobin 32 pg (25-35) Mean Corpuscular Hemoglobin Concent 35 g/dL (31-37) Red Cell Distribution Width 14.9 % (11.5-14.5) Platelet Count 84 x10^3/uL (140-400) Neutrophils (%) (Auto) 63 % (31-73) Lymphocytes (%) (Auto) 20 % (24-48) Monocytes (%) (Auto) 16 % (0-9) Eosinophils (%) (Auto) 0 % (0-3) Basophils (%) (Auto) 1 % (0-3) Neutrophils # (Auto) 2.9 x10^3/uL (1.8-7.7) Lymphocytes # (Auto) 0.9 x10^3/uL (1.0-4.8) Monocytes # (Auto) 0.7 x10^3/uL (0.0-1.1) Eosinophils # (Auto) 0.0 x10^3/uL (0.0-0.7) Basophils # (Auto) 0.0 x10^3/uL (0.0-0.2) Sodium Level 124 mmol/L (136-145) Potassium Level 3.4 mmol/L (3.5-5.1) Chloride Level 88 mmol/L (98-107) Carbon Dioxide Level 25 mmol/L (21-32) Anion Gap 11 (6-14) Blood Urea Nitrogen 70 mg/dL (7-20) Creatinine 1.6 mg/dL (0.6-1.0) Estimated GFR (Cockcroft-Gault) 32.9 BUN/Creatinine Ratio 44 (6-20) Glucose Level 125 mg/dL (70-99) Calcium Level 8.6 mg/dL (8.5-10.1) Magnesium Level 2.2 mg/dL (1.8-2.4) Total Bilirubin 0.6 mg/dL (0.2-1.0) Aspartate Amino Transf (AST/SGOT) 121 U/L (15-37) Alanine Aminotransferase (ALT/SGPT) 81 U/L (14-59) Alkaline Phosphatase 49 U/L (46-116) Total Protein 7.4 g/dL (6.4-8.2) Albumin 3.2 g/dL (3.4-5.0) Albumin/Globulin Ratio 0.8 (1.0-1.7) Laboratory Tests Test 05/30/20 13:10 White Blood Count 4.6 x10^3/uL (4.0-11.0) Red Blood Count 4.98 x10^6/uL (3.50-5.40) Hemoglobin 15.8 g/dL (12.0-15.5) Hematocrit 45.3 % (36.0-47.0) Mean Corpuscular Volume 91 fL (79-100) Mean Corpuscular Hemoglobin 32 pg (25-35) Mean Corpuscular Hemoglobin Concent 35 g/dL (31-37) Red Cell Distribution Width 14.9 % (11.5-14.5) Platelet Count 84 x10^3/uL (140-400) Neutrophils (%) (Auto) 63 % (31-73) Lymphocytes (%) (Auto) 20 % (24-48) Monocytes (%) (Auto) 16 % (0-9) Eosinophils (%) (Auto) 0 % (0-3) Basophils (%) (Auto) 1 % (0-3) Neutrophils # (Auto) 2.9 x10^3/uL (1.8-7.7) Lymphocytes # (Auto) 0.9 x10^3/uL (1.0-4.8) Monocytes # (Auto) 0.7 x10^3/uL (0.0-1.1) Eosinophils # (Auto) 0.0 x10^3/uL (0.0-0.7) Basophils # (Auto) 0.0 x10^3/uL (0.0-0.2) Sodium Level 124 mmol/L (136-145) Potassium Level 3.4 mmol/L (3.5-5.1) Chloride Level 88 mmol/L (98-107) Carbon Dioxide Level 25 mmol/L (21-32) Anion Gap 11 (6-14) Blood Urea Nitrogen 70 mg/dL (7-20) Creatinine 1.6 mg/dL (0.6-1.0) Estimated GFR (Cockcroft-Gault) 32.9 BUN/Creatinine Ratio 44 (6-20) Glucose Level 125 mg/dL (70-99) Calcium Level 8.6 mg/dL (8.5-10.1) Magnesium Level 2.2 mg/dL (1.8-2.4) Total Bilirubin 0.6 mg/dL (0.2-1.0) Aspartate Amino Transf (AST/SGOT) 121 U/L (15-37) Alanine Aminotransferase (ALT/SGPT) 81 U/L (14-59) Alkaline Phosphatase 49 U/L (46-116) Total Protein 7.4 g/dL (6.4-8.2) Albumin 3.2 g/dL (3.4-5.0) Albumin/Globulin Ratio 0.8 (1.0-1.7) Images: Images Pending chest x-ray Assessment/Plan Assessment/Plan Investigation for COVID-19 infection Acute generalized weakness secondary to chemotherapy versus COPD exacerbation Fever concerning for Port-A-Cath infection Polycythemia suggestive of chronic tobacco use Thrombocytopenia Acute electrolyte derangement suggestive of volume depletionhyponatremia, hypo kalemia, hypochloremia ZACARIAS due to vasomotor nephropathy Mild transaminitis Admit to medicine for further management Continue IV fluids Regular diet Continue IV cefepime Pending blood and urine cultures Pending Covid test Oncology consult Electrolyte replacement as needed Lovenox for DVT prophylaxis Protonix GI prophylaxis ADA diet Full code Discussed with RN and SW Disposition pending oncology evaluation Surrogate decision maker is the Justifications for Admission Other Justification JAKUB UGARTE MD May 30, 2020 13:56
--- NOTE | 2020-05-30 14:19 | RAD ---
EXAM: XR CHEST 1V INDICATION: Reason: fever, weakness, PUI / Spl. Instructions: / History: . TECHNIQUE: Single view COMPARISON: Chest x-ray of 03/12/2020 FINDINGS: Stable left jugular approach tunneled chest port with tip in the distal SVC. The heart size is upper normal in size.. The great vessels appear unremarkable. There is no hilar or mediastinal mass. Lungs show interval increased interstitial opacities in the left lung base and more generalized incre ased pulmonary markings. There is no pleural effusion or pneumothorax. There are no significant osseous abnormalities. IMPRESSION: Increased interstitial opacities in the left lung base and more generalized increased pulmonary mona ngs. Findings may be secondary to atypical pneumonia or pulmonary edema. Electronically signed by: Claire Momin MD (05/30/2020 2:16 PM) [id number]
[2020-05-30] MEDS: IV NORMAL SALINE 1000ML BAG 1,000 ML IV SCH (14:20)
[2020-05-30] MEDS ORDERED: DOCUSATE SODIUM 100 MG CAPSULE. PO PRN (14:30)
[2020-05-30] MEDS ORDERED: DEXTROSE 50% 25 GM / 50ML DISP.SYRIN. IV PRN (14:30)
[2020-05-30] MEDS ORDERED: ONDANSETRON PF 4 MG/2 ML VIAL. IVP PRN (14:30)
[2020-05-30] MEDS ORDERED: SENNOSIDES 8.6 MG TABLET PO PRN (14:30)
[2020-05-30] MEDS ORDERED: PROCHLORPERAZINE 10 MG/2 ML VIAL. IV PRN (14:30)
[2020-05-30 14:45] LABS: BILIRUBIN,URINE NEGATIVE (NEG); CLARITY,URINE CLEAR; COLOR,URINE YELLOW; NITRITE,URINE NEGATIVE (NEG); PH,URINE 5.5 (<5.0-8.0); PROTEIN,URINE NEGATIVE (NEG-TRACE); UROBILINOGEN,URINE 0.2 mg/dL (0.2 mg/dL)
[2020-05-30 14:52] LABS: AMORPHOUS SEDIMENT,UR PRESENT /HPF; HYALINE CASTS, URINE MODERATE /HPF
[2020-05-30 14:53] LABS: BACTERIA,URINE 0 /HPF (0-FEW); RBC,URINE 0 /HPF (0-2); WBC,URINE 0 /HPF (0-4)
[2020-05-30] MEDS ORDERED: CEFEPIME HCL IV Push 1 GM VIAL. IVP ONE (15:00)
[2020-05-30 15:05] LABS: INFLUENZA A PATIENT NEGATIVE (NEGATIVE); INFLUENZA B PATIENT NEGATIVE (NEGATIVE)
[2020-05-30] MEDS: ENOXAPARIN 40 MG/0.4 ML SYRINGE. SQ SCH (16:30)
[2020-05-30 18:47] VITALS: BP 111/63
[2020-05-30 23:46] VITALS: BP 151/70
[2020-05-31] MEDS: IV NORMAL SALINE 1000ML BAG 1,000 ML IV SCH ×4 (00:01→21:20)
[2020-05-31 03:00] VITALS: BP 127/75
[2020-05-31 04:56] LABS: BASO % 1 % (0-3); EOS % 0 % (0-3); HEMATOCRIT 42.9 % (36.0-47.0); HEMOGLOBIN 14.9 g/dL (12.0-15.5); LYMPH # 0.9 x10^3/uL (1.0-4.8); LYMPH % 21 % (24-48); MEAN CORPUSCULAR HEMOGLOBIN 32 pg (25-35); MEAN CORPUSCULAR HGB CONC 35 g/dL (31-37); MEAN CORPUSCULAR VOLUME 92 fL (79-100); MONO # 0.4 x10^3/uL (0.0-1.1); MONO % 11 % (0-9); NEUT # 2.9 x10^3/uL (1.8-7.7); NEUT % 68 % (31-73); PLATELET COUNT 66 x10^3/uL (140-400); RED BLOOD COUNT 4.64 x10^6/uL (3.50-5.40); RED CELL DISTRIBUTION WIDTH 15.1 % (11.5-14.5); WHITE BLOOD COUNT 4.2 x10^3/uL (4.0-11.0)
[2020-05-31 05:36] LABS: CALCIUM 7.9 mg/dL (8.5-10.1); GFR 56.6; MAGNESIUM 2.3 mg/dL (1.8-2.4); PHOSPHORUS 2.5 mg/dL (2.6-4.7); POTASSIUM 3.4 mmol/L (3.5-5.1)
[2020-05-31 07:00] VITALS: BP 131/73
[2020-05-31] MEDS ORDERED: POTASSIUM CHLORIDE 20 MEQ TABLET.ER. PO ONE (08:00)
[2020-05-31] MEDS: ACETAMINOPHEN 325 MG TABLET. PO PRN ×3 (10:02→23:36)
[2020-05-31 10:54] VITALS: BP 120/61
[2020-05-31] MEDS ORDERED: NON FORMULARY ITEM (Albuterol Sulfate (Ventolin Hfa Inhaler) 2 PUFF) INH PRN (11:30)
[2020-05-31] MEDS ORDERED: ALBUTEROL SULFATE 2.5 MG/3 ML NEBU. NEB PRN (12:00)
--- NOTE | 2020-05-31 12:08 | PDOC ---
[employer] PROGRESS NOTE Date of Service DOS: DATE: 05/31/20 TIME: 11:50 Chief Complaint Chief Complaint Investigation for COVID-19 infection Acute generalized weakness secondary to chemotherapy versus COPD exacerbation Fever concerning for Port-A-Cath infection Polycythemia suggestive of chronic tobacco use Thrombocytopenia Acute electrolyte derangement suggestive of volume depletionhyponatremia, hypokalemia, hypochloremia ZACARIAS due to vasomotor nephropathy Mild transaminitis Admit to medicine for further management Continue IV fluids Regular diet Continue IV cefepime Pending blood and urine cultures Pending Covid test Oncology consult Electrolyte replacement as needed Lovenox for DVT prophylaxis Protonix GI prophylaxis ADA diet Full code Discussed with RN and SW Disposition pending oncology evaluation Surrogate decision maker is the History of Present Illness History of Present Illness 59 year old female, accompanied by her , who presents to the emergency department with complaints of generalized weakness for the last 7 days. Patient states she had her last chemotherapy treatment for right-sided breast cancer on May [id number]. She states for the last week she is just felt fatigued and weak. She states she is also had a decreased appetite. Patient denies any fever, cough, increased shortness of breath, chest pain, abdominal pain, nausea, vomiting, diarrhea, headache, or loss of taste/smell. Patient denies any swelling of her lower extremities. She has a history of COPD and states that her breathing is not more labored than usual. She constantly wears 4 L of oxygen via nasal cannula due to her COPD. She states that she stopped smoking approximately 1 week ago. Patient denies any known exposure to COVID-19, she states she has been staying home. 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 The patient currently denies any pain. She reports she had a right mastectomy back in October, she denies any redness at her surgical site. Patient denies any redness, or warmth at her Port-A-Cath site. Patient reports that her oncologist is Dr. Glasgow, she is currently on a chemotherapy treatment that she is not supposed to take any ibuprofen with. 05/31: Patient seen and evaluated bedside. COVID-19 pending. She has a history of COPD and is currently breathing on 6 L oxygen, which is increased from reported 4L at baseline. She is tachycardic and febrile, will obtain D-dimer. Will obtain albuterol inhaler from pharmacy and resume home medications. Continue antibiotic coverage for COPD exacerbation possible community-acquired pneumonia. Discussed with RN. Vitals/I&O Vitals/I&O: Vital Signs Date Time Temp Pulse Resp B/P (MAP) Pulse Ox O2 Delivery O2 Flow Rate FiO2 05/31/20 10:54 101.7 100 28 120/61 (80) 93 Nasal Cannula 6.0 101.7 I & O 05/30/20 05/30/20 05/31/20 15:00 23:00 07:00 Intake Total 1000 ml 569 ml Balance 1000 ml 569 ml Physical Exam General: Alert Heart: Other (Tachycardic) Lungs: Other (Decreased breath sounds) Abdomen: Soft, No tenderness Extremities: No clubbing, No cyanosis Skin: No rashes, No breakdown Labs Labs: Laboratory Tests Test 05/30/20 13:10 05/30/20 14:30 05/30/20 14:35 05/31/20 04:00 White Blood Count 4.6 x10^3/uL (4.0-11.0) 4.2 x10^3/uL (4.0-11.0) Red Blood Count 4.98 x10^6/uL (3.50-5.40) 4.64 x10^6/uL (3.50-5.40) Hemoglobin 15.8 g/dL (12.0-15.5) 14.9 g/dL (12.0-15.5) Hematocrit 45.3 % (36.0-47.0) 42.9 % (36.0-47.0) Mean Corpuscular Volume 91 fL (79-100) 92 fL (79-100) Mean Corpuscular Hemoglobin 32 pg (25-35) 32 pg (25-35) Mean Corpuscular Hemoglobin Concent 35 g/dL (31-37) 35 g/dL (31-37) Red Cell Distribution Width 14.9 % (11.5-14.5) 15.1 % (11.5-14.5) Platelet Count 84 x10^3/uL (140-400) 66 x10^3/uL (140-400) Neutrophils (%) (Auto) 63 % (31-73) 68 % (31-73) Lymphocytes (%) (Auto) 20 % (24-48) 21 % (24-48) Monocytes (%) (Auto) 16 % (0-9) 11 % (0-9) Eosinophils (%) (Auto) 0 % (0-3) 0 % (0-3) Basophils (%) (Auto) 1 % (0-3) 1 % (0-3) Neutrophils # (Auto) 2.9 x10^3/uL (1.8-7.7) 2.9 x10^3/uL (1.8-7.7) Lymphocytes # (Auto) 0.9 x10^3/uL (1.0-4.8) 0.9 x10^3/uL (1.0-4.8) Monocytes # (Auto) 0.7 x10^3/uL (0.0-1.1) 0.4 x10^3/uL (0.0-1.1) Eosinophils # (Auto) 0.0 x10^3/uL (0.0-0.7) 0.0 x10^3/uL (0.0-0.7) Basophils # (Auto) 0.0 x10^3/uL (0.0-0.2) 0.0 x10^3/uL (0.0-0.2) Sodium Level 124 mmol/L (136-145) 129 mmol/L (136-145) Potassium Level 3.4 mmol/L (3.5-5.1) 3.4 mmol/L (3.5-5.1) Chloride Level 88 mmol/L (98-107) 95 mmol/L (98-107) Carbon Dioxide Level 25 mmol/L (21-32) 24 mmol/L (21-32) Anion Gap 11 (6-14) 10 (6-14) Blood Urea Nitrogen 70 mg/dL (7-20) 44 mg/dL (7-20) Creatinine 1.6 mg/dL (0.6-1.0) 1.0 mg/dL (0.6-1.0) Estimated GFR (Cockcroft-Gault) 32.9 56.6 BUN/Creatinine Ratio 44 (6-20) Glucose Level 125 mg/dL (70-99) 99 mg/dL (70-99) Lactic Acid Level 1.3 mmol/L (0.4-2.0) Calcium Level 8.6 mg/dL (8.5-10.1) 7.9 mg/dL (8.5-10.1) Magnesium Level 2.2 mg/dL (1.8-2.4) 2.3 mg/dL (1.8-2.4) Total Bilirubin 0.6 mg/dL (0.2-1.0) Aspartate Amino Transf (AST/SGOT) 121 U/L (15-37) Alanine Aminotransferase (ALT/SGPT) 81 U/L (14-59) Alkaline Phosphatase 49 U/L (46-116) Total Protein 7.4 g/dL (6.4-8.2) Albumin 3.2 g/dL (3.4-5.0) Albumin/Globulin Ratio 0.8 (1.0-1.7) Urine Collection Type U cath Urine Color Yellow Urine Clarity Clear Urine pH 5.5 (<5.0-8.0) Urine Specific [place] 1.010 (1.000-1.030) Urine Protein Negative mg/dL (NEG-TRACE) Urine Glucose (UA) Negative mg/dL (NEG) Urine Ketones (Stick) Negative mg/dL (NEG) Urine Blood Large (NEG) Urine Nitrite Negative (NEG) Urine Bilirubin Negative (NEG) Urine Urobilinogen Dipstick 0.2 mg/dL (0.2 mg/dL) Urine Leukocyte Esterase Negative (NEG) Urine RBC 0 /HPF (0-2) Urine WBC 0 /HPF (0-4) Urine Amorphous Sediment Present /HPF Urine Bacteria 0 /HPF (0-FEW) Urine Hyaline Casts Moderate /HPF Urine Mucus Slight /LPF Influenza Type A Antigen Negative (NEGATIVE) Influenza Type B Antigen Negative (NEGATIVE) Phosphorus Level 2.5 mg/dL (2.6-4.7) Review of Systems Review of Systems: Shortness of breath, headache, muscle aches. Denies chest pain, denies nausea, denies vomiting. Assessment and Plan Assessmemt and Plan Problems Medical Problems: (1) ZACARIAS (acute kidney injury) Status: Acute (2) Dehydration Status: Acute (3) Fever Status: Acute (4) Hx of breast cancer Status: Acute (5) Hyponatremia Status: Acute (6) Person under investigation for COVID-19 Status: Acute Comment Review of Relevant I have reviewed the following items lobo (where applicable) has been applied. Medications: Current Medications Medications (Trade) Dose Ordered Sig/Micaela Route PRN Reason Start Time Stop Time Status Last Admin Dose Admin Sodium Chloride 1,000 ml @ 1,000 mls/hr 1X ONCE IV 05/30/20 13:30 05/30/20 14:29 DC 05/30/20 13:27 Acetaminophen (Tylenol) 1,000 mg 1X ONCE PO 05/30/20 13:30 05/30/20 13:31 DC 05/30/20 14:21 Sodium Chloride 1,000 ml @ 125 mls/hr Q8H IV 05/30/20 13:45 05/31/20 13:44 05/31/20 00:01 Cefepime HCl (Maxipime) 1 gm 1X ONCE IVP 05/30/20 15:00 05/30/20 15:01 DC 05/30/20 16:32 Enoxaparin Sodium (Lovenox 40mg Syringe) 40 mg Q24H SQ 05/30/20 15:00 05/30/20 16:30 Acetaminophen (Tylenol) 650 mg PRN Q6HRS PRN PO MILD PAIN / TEMP > 100.3'F 05/31/20 00:15 05/31/20 10:02 Potassium Chloride (Klor-Con) 40 meq 1X ONCE PO 05/31/20 08:00 05/31/20 08:01 DC 05/31/20 10:03 Justifications for Admission Other Justification generalized weakness KING TENORIO MD May 31, 2020 12:08
--- NOTE | 2020-05-31 12:16 | NUR ---
SW following for discharge planning. Spoke with RN and reviewed chart. SW consulted for high risk readmission and for pt having financial concerns related to functional decline. Pt COVID pending. SW attempted to call into pt's room, no answer. Pt on 6l 02 and IV Maxipime. Pt has a fever and is SOB. Pt has 02 at home per RN. KEVIN following. Addendum: 05/31/20 at 1220 by WINSTON BROWN PT/OT to evaluate.
[2020-05-31] MEDS: FLUTICASONE/VILANTEROL 100/25 INHALER. INH SCH (13:38)
[2020-05-31] MEDS: ALBUTEROL SULFATE 8GM INHALER. INH PRN (13:38)
[2020-05-31] MEDS: DOXYCYCLINE HYCLATE 100 MG TABLET PO SCH ×2 (13:39→21:20)
[2020-05-31] MEDS: CEFEPIME HCL IV Push 2 GM VIAL. IVP SCH ×2 (13:39→21:21)
--- NOTE | 2020-05-31 14:33 | PDOC2 ---
CONSULT Date of Consult Date of Consult DATE: 05/31/20 TIME: 14:13 Reason for Consult Reason for Consult: Metastatic breast cancer Referring Physician Referring Physician: Dr. Clancy Identification/Chief Complaint Chief Complaint Generalized weakness Source Source: Chart review, Patient History of Present Illness Reason for Visit: Nicolle Rojas is a 59-year-old female with breast cancer who has been admitted for management of generalized weakness. 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 She previously received 6 cycles of Taxotere, carboplatin, Herceptin and Perjeta on the [facility] clinical trial from Dr. Rivera. Pathologic complete response was not noted at surgery and adjuvant Kadcyla was therefore recommended. She has tolerated adjuvant therapy fairly with recent reports of fatigue. She has not had neutropenia during prior lab evaluations. Her last treatment of Kadcyla was on 05/21/2020. Paula presented to the [facility] emergency room on 05/30/2020 with generalized weakness. She was found to have hypokalemia, ZACARIAS with elevated BUN indicative of acute kidney injury. She reports feeling better after receiving IV fluids. Her lab studies show a normal CBC and no other abnormalities. 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 Current Problem List Problem List Problems Medical Problems: (1) ZACARIAS (acute kidney injury) Status: Acute (2) Dehydration Status: Acute (3) Fever Status: Acute (4) Hx of breast cancer Status: Acute (5) Hyponatremia Status: Acute (6) Person under investigation for COVID-19 Status: Acute Current Medications Current Medications Current Medications Sodium Chloride 1,000 ml @ 1,000 mls/hr 1X ONCE IV Last administered on 05/30/20at 13:27; Start 05/30/20 at 13:30; Stop 05/30/20 at 14:29; Status DC Acetaminophen (Tylenol) 1,000 mg 1X ONCE PO Last administered on 05/30/20at 14:21; Start 05/30/20 at 13:30; Stop 05/30/20 at 13:31; Status DC Sodium Chloride 1,000 ml @ 125 mls/hr Q8H IV Last administered on 05/31/20at 00:01; Start 05/30/20 at 13:45; Stop 05/31/20 at 13:44; Status DC Cefepime HCl (Maxipime) 1 gm 1X ONCE IVP Last administered on 05/30/20at 16:32; Start 05/30/20 at 15:00; Stop 05/30/20 at 15:01; Status DC Sennosides (Senna) 17.2 mg PRN BID PRN PO CONSTIPATION; Start 05/30/20 at 14:30 Docusate Sodium (Colace) 100 mg PRN DAILY PRN PO HARD STOOLS; Start 05/30/20 at 14:30 Ondansetron HCl (Zofran) 4 mg PRN Q6HRS PRN IVP NAUSEA/VOMITING; Start 05/30/20 at 14:30 Dextrose (Dextrose 50%-Water Syringe) 12.5 gm PRN Q15MIN PRN IV SEE COMMENTS; Start 05/30/20 at 14:30 Enoxaparin Sodium (Lovenox 40mg Syringe) 40 mg Q24H SQ Last administered on 05/30/20at 16:30; Start 05/30/20 at 15:00 Morphine Sulfate (Morphine Sulfate) 2 mg PRN Q2HR PRN IV SEVERE PAIN 7-10 Last administered on 05/30/20at 16:31; Start 05/30/20 at 04:00; Stop 05/31/20 at 03:59; Status DC Prochlorperazine Edisylate (Compazine) 10 mg Q6HRS PRN IV VOMITING; Start 05/30/20 at 14:30 Acetaminophen (Tylenol) 650 mg PRN Q6HRS PRN PO MILD PAIN / TEMP > 100.3'F Last administered on 05/31/20at 10:02; Start 05/31/20 at 00:15 Potassium Chloride (Klor-Con) 40 meq 1X ONCE PO Last administered on 05/31/20at 10:03; Start 05/31/20 at 08:00; Stop 05/31/20 at 08:01; Status DC Non-Formulary Medication (Albuterol Sulfate (Ventolin Hfa Inhaler)) 2 puff PRN Q4-6HRS PRN INH SHORTNESS OF BREATH; Start 05/31/20 at 11:30; Status UNV Sodium Chloride 1,000 ml @ 100 mls/hr Q10H IV Last administered on 05/31/20at 13:39; Start 05/31/20 at 12:00 Albuterol Sulfate (Ventolin Neb Soln) 2.5 mg PRN Q4HRS PRN NEB SHORTNESS OF BREATH; Start 05/31/20 at 12:00 Cefepime HCl (Maxipime) 2 gm Q8HRS IVP Last administered on 05/31/20at 13:39; Start 05/31/20 at 13:00 Doxycycline Hyclate (Vibra-Tab) 100 mg BID PO Last administered on 05/31/20at 13:39; Start 05/31/20 at 13:00 Albuterol Sulfate (Ventolin Hfa) 1 puff PRN Q4HRS PRN INH SHORTNESS OF BREATH Last administered on 05/31/20at 13:38; Start 05/31/20 at 12:45 Hydralazine HCl (Apresoline) 10 mg DAILY PO ; Start 06/01/20 at 09:00 Hydrochlorothiazide (Hydrodiuril) 12.5 mg DAILY PO ; Start 06/01/20 at 09:00 Fluticasone/ Vilanterol (Breo Ellipta 100-25 Mcg) 1 puff DAILY INH Last administered on 05/31/20at 13:38; Start 05/31/20 at 14:00 Losartan Potassium (Cozaar) 100 mg DAILY PO ; Start 06/01/20 at 09:00 Varenicline (Chantix) 1 mg BID PO ; Start 05/31/20 at 21:00 Active Scripts Active Reported [kadcyla] 1 Ea IV UD chemotherapy every 3 weeks Chantix (Varenicline Tartrate) 1 Mg Tablet 1 Mg PO BID Hydrochlorothiazide Tablet (Hydrochlorothiazide) 25 Mg Tablet 12.5 Mg PO DAILY Hydralazine Hcl 10 Mg Tablet 10 Mg PO DAILY Ventolin Hfa Inhaler (Albuterol Sulfate) 18 Gm Hfa.aer.ad 2 Puff INH PRN Q4-6HRS PRN Breo Ellipta 100-25 Mcg Inh (Fluticasone/Vilanterol) 1 Each Aer.pow.ba 2 Puff IH DAILY Allergies Allergies: Coded Allergies: ibuprofen (Verified Adverse Reaction, Severe, DRUG INTERACTION WITH CHEMO, 05/31/20) NOT SUPPOSED TO TAKE IBUPROFEN WITH HER CHEMO MEDICATION ROS General: YES: Fatigue, Malaise; No: Chills, Night Sweats PSYCHOLOGICAL ROS: No: Mood Swings, Obsessive thoughts Eyes: No Eye Pain, No Itchy Eyes HEENT: No: Oral lesions, Sinus pain ALLERGY AND IMMUNOLOGY: No: Nasal Congestion, Post Nasal Drip Hematological and Lymphatic: No: Brusing, Night Sweats ENDOCRINE: YES: Malaise/lethargy; No: Palpitations Respiratory: YES: Shortness of breath; No: Cough, Orthopnea Cardiovascular: No Chest Pain, No Palpitations Gastrointestinal: Yes Nausea, Yes Diarrhea (For the past week); No Vomiting, No Abdominal Pain Genitourinary: No Dysuria, No Frequency Musculoskeletal: No Gait Disturbance, No Joint Pain Neurological: No Behavorial Changes, No Bowel/Bladder ControlChng Skin: No Dry Skin, No Eczema Physical Exam General: Alert, Oriented X3 HEENT: Atraumatic Lungs: Clear to auscultation Heart: Regular rate, Normal S1 Abdomen: Normal bowel sounds, Soft Extremities: No clubbing, No cyanosis Skin: No rashes Neuro: Normal speech MUSCULOSKELETAL: No swelling Vitals VITALS Vital Signs Date Time Temp Pulse Resp B/P (MAP) Pulse Ox O2 Delivery O2 Flow Rate FiO2 05/31/20 10:54 101.7 100 28 120/61 (80) 93 Nasal Cannula 6.0 101.7 Labs Labs Laboratory Tests Test 05/30/20 13:10 05/30/20 14:30 05/30/20 14:35 05/31/20 04:00 White Blood Count 4.6 x10^3/uL (4.0-11.0) 4.2 x10^3/uL (4.0-11.0) Red Blood Count 4.98 x10^6/uL (3.50-5.40) 4.64 x10^6/uL (3.50-5.40) Hemoglobin 15.8 g/dL (12.0-15.5) 14.9 g/dL (12.0-15.5) Hematocrit 45.3 % (36.0-47.0) 42.9 % (36.0-47.0) Mean Corpuscular Volume 91 fL (79-100) 92 fL (79-100) Mean Corpuscular Hemoglobin 32 pg (25-35) 32 pg (25-35) Mean Corpuscular Hemoglobin Concent 35 g/dL (31-37) 35 g/dL (31-37) Red Cell Distribution Width 14.9 % (11.5-14.5) 15.1 % (11.5-14.5) Platelet Count 84 x10^3/uL (140-400) 66 x10^3/uL (140-400) Neutrophils (%) (Auto) 63 % (31-73) 68 % (31-73) Lymphocytes (%) (Auto) 20 % (24-48) 21 % (24-48) Monocytes (%) (Auto) 16 % (0-9) 11 % (0-9) Eosinophils (%) (Auto) 0 % (0-3) 0 % (0-3) Basophils (%) (Auto) 1 % (0-3) 1 % (0-3) Neutrophils # (Auto) 2.9 x10^3/uL (1.8-7.7) 2.9 x10^3/uL (1.8-7.7) Lymphocytes # (Auto) 0.9 x10^3/uL (1.0-4.8) 0.9 x10^3/uL (1.0-4.8) Monocytes # (Auto) 0.7 x10^3/uL (0.0-1.1) 0.4 x10^3/uL (0.0-1.1) Eosinophils # (Auto) 0.0 x10^3/uL (0.0-0.7) 0.0 x10^3/uL (0.0-0.7) Basophils # (Auto) 0.0 x10^3/uL (0.0-0.2) 0.0 x10^3/uL (0.0-0.2) Sodium Level 124 mmol/L (136-145) 129 mmol/L (136-145) Potassium Level 3.4 mmol/L (3.5-5.1) 3.4 mmol/L (3.5-5.1) Chloride Level 88 mmol/L (98-107) 95 mmol/L (98-107) Carbon Dioxide Level 25 mmol/L (21-32) 24 mmol/L (21-32) Anion Gap 11 (6-14) 10 (6-14) Blood Urea Nitrogen 70 mg/dL (7-20) 44 mg/dL (7-20) Creatinine 1.6 mg/dL (0.6-1.0) 1.0 mg/dL (0.6-1.0) Estimated GFR (Cockcroft-Gault) 32.9 56.6 BUN/Creatinine Ratio 44 (6-20) Glucose Level 125 mg/dL (70-99) 99 mg/dL (70-99) Lactic Acid Level 1.3 mmol/L (0.4-2.0) Calcium Level 8.6 mg/dL (8.5-10.1) 7.9 mg/dL (8.5-10.1) Magnesium Level 2.2 mg/dL (1.8-2.4) 2.3 mg/dL (1.8-2.4) Total Bilirubin 0.6 mg/dL (0.2-1.0) Aspartate Amino Transf (AST/SGOT) 121 U/L (15-37) Alanine Aminotransferase (ALT/SGPT) 81 U/L (14-59) Alkaline Phosphatase 49 U/L (46-116) Total Protein 7.4 g/dL (6.4-8.2) Albumin 3.2 g/dL (3.4-5.0) Albumin/Globulin Ratio 0.8 (1.0-1.7) Urine Collection Type U cath Urine Color Yellow Urine Clarity Clear Urine pH 5.5 (<5.0-8.0) Urine Specific [place] 1.010 (1.000-1.030) Urine Protein Negative mg/dL (NEG-TRACE) Urine Glucose (UA) Negative mg/dL (NEG) Urine Ketones (Stick) Negative mg/dL (NEG) Urine Blood Large (NEG) Urine Nitrite Negative (NEG) Urine Bilirubin Negative (NEG) Urine Urobilinogen Dipstick 0.2 mg/dL (0.2 mg/dL) Urine Leukocyte Esterase Negative (NEG) Urine RBC 0 /HPF (0-2) Urine WBC 0 /HPF (0-4) Urine Amorphous Sediment Present /HPF Urine Bacteria 0 /HPF (0-FEW) Urine Hyaline Casts Moderate /HPF Urine Mucus Slight /LPF Influenza Type A Antigen Negative (NEGATIVE) Influenza Type B Antigen Negative (NEGATIVE) Phosphorus Level 2.5 mg/dL (2.6-4.7) Test 05/31/20 12:35 D-Dimer (Akila) 1.60 ug/mlFEU (0.00-0.50) Laboratory Tests Test 05/30/20 14:30 05/30/20 14:35 05/31/20 04:00 05/31/20 12:35 Urine Collection Type U cath Urine Color Yellow Urine Clarity Clear Urine pH 5.5 (<5.0-8.0) Urine Specific [place] 1.010 (1.000-1.030) Urine Protein Negative mg/dL (NEG-TRACE) Urine Glucose (UA) Negative mg/dL (NEG) Urine Ketones (Stick) Negative mg/dL (NEG) Urine Blood Large (NEG) Urine Nitrite Negative (NEG) Urine Bilirubin Negative (NEG) Urine Urobilinogen Dipstick 0.2 mg/dL (0.2 mg/dL) Urine Leukocyte Esterase Negative (NEG) Urine RBC 0 /HPF (0-2) Urine WBC 0 /HPF (0-4) Urine Amorphous Sediment Present /HPF Urine Bacteria 0 /HPF (0-FEW) Urine Hyaline Casts Moderate /HPF Urine Mucus Slight /LPF Influenza Type A Antigen Negative (NEGATIVE) Influenza Type B Antigen Negative (NEGATIVE) White Blood Count 4.2 x10^3/uL (4.0-11.0) Red Blood Count 4.64 x10^6/uL (3.50-5.40) Hemoglobin 14.9 g/dL (12.0-15.5) Hematocrit 42.9 % (36.0-47.0) Mean Corpuscular Volume 92 fL (79-100) Mean Corpuscular Hemoglobin 32 pg (25-35) Mean Corpuscular Hemoglobin Concent 35 g/dL (31-37) Red Cell Distribution Width 15.1 % (11.5-14.5) Platelet Count 66 x10^3/uL (140-400) Neutrophils (%) (Auto) 68 % (31-73) Lymphocytes (%) (Auto) 21 % (24-48) Monocytes (%) (Auto) 11 % (0-9) Eosinophils (%) (Auto) 0 % (0-3) Basophils (%) (Auto) 1 % (0-3) Neutrophils # (Auto) 2.9 x10^3/uL (1.8-7.7) Lymphocytes # (Auto) 0.9 x10^3/uL (1.0-4.8) Monocytes # (Auto) 0.4 x10^3/uL (0.0-1.1) Eosinophils # (Auto) 0.0 x10^3/uL (0.0-0.7) Basophils # (Auto) 0.0 x10^3/uL (0.0-0.2) Sodium Level 129 mmol/L (136-145) Potassium Level 3.4 mmol/L (3.5-5.1) Chloride Level 95 mmol/L (98-107) Carbon Dioxide Level 24 mmol/L (21-32) Anion Gap 10 (6-14) Blood Urea Nitrogen 44 mg/dL (7-20) Creatinine 1.0 mg/dL (0.6-1.0) Estimated GFR (Cockcroft-Gault) 56.6 Glucose Level 99 mg/dL (70-99) Calcium Level 7.9 mg/dL (8.5-10.1) Phosphorus Level 2.5 mg/dL (2.6-4.7) Magnesium Level 2.3 mg/dL (1.8-2.4) D-Dimer (Akila) 1.60 ug/mlFEU (0.00-0.50) Assessment/Plan Assessment/Plan Assessment: Right breast cancer T2N1 ER positive HER-2 positive on adjuvant therapy with Kadcyla Abnormal LFTs: AST 121 and ALT 81 compared to 49 and 87 respectively on 05/21/2020 Generalized weakness ZACARIAS Hyponatremia likely from dehydration Thrombocytopenia, secondary to Kadcyla Chronic hypoxic respiratory failure COPD Stage I non-small cell lung cancer, status post SBRT in March 2020 Recommendations: -Continue supportive care for generalized weakness and dehydration with IV fluids -Continue to monitor renal function and hyponatremia and resolution -Repeat CMP tomorrow a.m. to assess liver function tests -Encouraged increased oral intake. Recommend dietary consult -We will discuss resumption of outpatient treatment with office visit after hospital discharge -Additional care per Dr. Aston Graves MD Medical Oncology/Hematology Ph: [phone] ALBA GRAVES MD May 31, 2020 14:33
[2020-05-31 14:38] VITALS: BP 118/63
[2020-05-31] MEDS: ENOXAPARIN 40 MG/0.4 ML SYRINGE. SQ SCH (15:28)
[2020-05-31 18:33] VITALS: BP 108/53
[2020-05-31] MEDS: VARENICLINE 0.5 MG TABLET. PO SCH (21:20)
[2020-05-31 23:00] VITALS: BP 120/60
[2020-06-01 03:00] VITALS: BP 114/60
[2020-06-01] MEDS: CEFEPIME HCL IV Push 2 GM VIAL. IVP SCH ×3 (05:59→21:34)
[2020-06-01 07:00] VITALS: BP 133/78
--- NOTE | 2020-06-01 07:15 | PDOC ---
[employer] PROGRESS NOTE Date of Service DOS: DATE: 06/01/20 TIME: 07:13 Chief Complaint Chief Complaint Investigation for COVID-19 infection Acute generalized weakness secondary to chemotherapy versus COPD exacerbation Fever concerning for Port-A-Cath infection Polycythemia suggestive of chronic tobacco use Thrombocytopenia Acute electrolyte derangement suggestive of volume depletionhyponatremia, hypokalemia, hypochloremia ZACARIAS due to vasomotor nephropathy Mild transaminitis Admit to medicine for further management Continue IV fluids Regular diet Continue IV cefepime Pending blood and urine cultures Pending Covid test Oncology consult Electrolyte replacement as needed Lovenox for DVT prophylaxis Protonix GI prophylaxis ADA diet Full code Discussed with RN and SW Disposition pending oncology evaluation Surrogate decision maker is the History of Present Illness History of Present Illness 59 year old female, accompanied by her , who presents to the emergency department with complaints of generalized weakness for the last 7 days. Patient states she had her last chemotherapy treatment for right-sided breast cancer on May [id number]. She states for the last week she is just felt fatigued and weak. She states she is also had a decreased appetite. Patient denies any fever, cough, increased shortness of breath, chest pain, abdominal pain, nausea, vomiting, diarrhea, headache, or loss of taste/smell. Patient denies any swelling of her lower extremities. She has a history of COPD and states that her breathing is not more labored than usual. She constantly wears 4 L of oxygen via nasal cannula due to her COPD. She states that she stopped smoking approximately 1 week ago. Patient denies any known exposure to COVID-19, she states she has been staying home. 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 The patient currently denies any pain. She reports she had a right mastectomy back in October, she denies any redness at her surgical site. Patient denies any redness, or warmth at her Port-A-Cath site. Patient reports that her oncologist is Dr. Glasgow, she is currently on a chemotherapy treatment that she is not supposed to take any ibuprofen with. 05/31: Patient seen and evaluated bedside. COVID-19 pending. She has a history of COPD and is currently breathing on 6 L oxygen, which is increased from reported 4L at baseline. She is tachycardic and febrile, will obtain D-dimer. Will obtain albuterol inhaler from pharmacy and resume home medications. Continue antibiotic coverage for COPD exacerbation possible community-acquired pneumonia. Discussed with RN. 06/01: Patient seen and evaluated bedside. COVID-19 positive. After discussion of risk respiratory, patient was comfortable initiating remdesivir. Will follow LFTs. Oxygen requirement is increasing currently on 10 L nasal cannula. Febrile, tachycardic, tachypneic. Obtain CTA this morning that was negative for PE. Will consult pulmonology for further recommendations. Vitals/I&O Vitals/I&O: Vital Signs Date Time Temp Pulse Resp B/P (MAP) Pulse Ox O2 Delivery O2 Flow Rate FiO2 06/01/20 03:00 99.1 89 22 114/60 (78) 95 Nasal Cannula 10.0 99.1 I & O 05/31/20 05/31/20 06/01/20 15:00 23:00 07:00 Intake Total 120 ml 360 ml 120 ml Output Total 500 ml Balance 120 ml -140 ml 120 ml Physical Exam General: Alert, Oriented X3, mild distress Heart: Regular rate, Normal S1 Lungs: Other (Decreased breath sounds) Abdomen: Normal bowel sounds, Soft Extremities: No clubbing, No cyanosis Skin: No rashes Labs Labs: Laboratory Tests Test 05/31/20 12:35 D-Dimer (Akila) 1.60 ug/mlFEU (0.00-0.50) Assessment and Plan Assessmemt and Plan Problems Medical Problems: (1) ZACARIAS (acute kidney injury) Status: Acute (2) Dehydration Status: Acute (3) Fever Status: Acute (4) Hx of breast cancer Status: Acute (5) Hyponatremia Status: Acute (6) Person under investigation for COVID-19 Status: Acute Comment Review of Relevant I have reviewed the following items lobo (where applicable) has been applied. Medications: Current Medications Medications (Trade) Dose Ordered Sig/Micaela Route PRN Reason Start Time Stop Time Status Last Admin Dose Admin Potassium Chloride (Klor-Con) 40 meq 1X ONCE PO 05/31/20 08:00 05/31/20 08:01 DC 05/31/20 10:03 Sodium Chloride 1,000 ml @ 100 mls/hr Q10H IV 05/31/20 12:00 05/31/20 21:20 Cefepime HCl (Maxipime) 2 gm Q8HRS IVP 05/31/20 13:00 06/01/20 05:59 Doxycycline Hyclate (Vibra-Tab) 100 mg BID PO 05/31/20 13:00 05/31/20 21:20 Albuterol Sulfate (Ventolin Hfa) 1 puff PRN Q4HRS PRN INH SHORTNESS OF BREATH 05/31/20 12:45 05/31/20 13:38 Fluticasone/ Vilanterol (Breo Ellipta 100-25 Mcg) 1 puff DAILY INH 05/31/20 14:00 05/31/20 13:38 Varenicline (Chantix) 1 mg BID PO 05/31/20 21:00 05/31/20 21:20 Justifications for Admission Other Justification generalized weakness KING TENORIO MD Jun 01, 2020 07:15
[2020-06-01] MEDS: IV NORMAL SALINE 1000ML BAG 1,000 ML IV SCH ×2 (08:00→18:00)
[2020-06-01] MEDS: FLUTICASONE/VILANTEROL 100/25 INHALER. INH SCH (08:13)
[2020-06-01] MEDS: DOXYCYCLINE HYCLATE 100 MG TABLET PO SCH ×2 (08:13→21:31)
[2020-06-01] MEDS: VARENICLINE 0.5 MG TABLET. PO SCH ×2 (08:18→21:30)
[2020-06-01] MEDS: hydrALAZINE 10 MG TABLET PO SCH (08:18)
[2020-06-01] MEDS: hydroCHLOROthiazide 25 MG TABLET PO SCH (08:18)
[2020-06-01] MEDS: LOSARTAN POTASSIUM 50 MG TABLET. PO SCH (08:19)
[2020-06-01] MEDS: ACETAMINOPHEN 325 MG TABLET. PO PRN ×2 (08:32→21:30)
[2020-06-01] MEDS ORDERED: IOHEXOL 350 MG/ML 100 ML VIAL. IV ONE (08:45)
[2020-06-01] MEDS ORDERED: CONTRAST GIVEN. MC PRN (09:00)
[2020-06-01 09:07] LABS: BASO % 1 % (0-3); EOS % 0 % (0-3); HEMATOCRIT 40.6 % (36.0-47.0); HEMOGLOBIN 14.1 g/dL (12.0-15.5); LYMPH # 0.6 x10^3/uL (1.0-4.8); LYMPH % 15 % (24-48); MEAN CORPUSCULAR HEMOGLOBIN 32 pg (25-35); MEAN CORPUSCULAR HGB CONC 35 g/dL (31-37); MEAN CORPUSCULAR VOLUME 92 fL (79-100); MONO # 0.2 x10^3/uL (0.0-1.1); MONO % 6 % (0-9); NEUT # 3.4 x10^3/uL (1.8-7.7); NEUT % 79 % (31-73); PLATELET COUNT 78 x10^3/uL (140-400); RED BLOOD COUNT 4.41 x10^6/uL (3.50-5.40); RED CELL DISTRIBUTION WIDTH 15.6 % (11.5-14.5); WHITE BLOOD COUNT 4.3 x10^3/uL (4.0-11.0)
[2020-06-01 09:24] LABS: ALBUMIN 2.7 g/dL (3.4-5.0); ALBUMIN/GLOBULIN RATIO 0.7 (1.0-1.7); CALCIUM 8.1 mg/dL (8.5-10.1); CREATININE 0.6 mg/dL (0.6-1.0); POTASSIUM 3.6 mmol/L (3.5-5.1); TOTAL BILIRUBIN 0.5 mg/dL (0.2-1.0); TOTAL PROTEIN 6.5 g/dL (6.4-8.2)
--- NOTE | 2020-06-01 10:25 | RAD ---
EXAM: CT Pulmonary Angiogram INDICATION: Reason: Elevated D-dimer, r/o PE / Spl. Instructions: IV OMNI 350 80 MLS / History: TECHNIQUE: Multi-detector row images were acquired from the thoracic inlet through the upper abdomen with the use of IV contrast. Sagittal and coronal images were acquired from the transaxial data. RI P images of the pulmonary arteries were obtained. All CT scans performed at this facility utilize dos e optimization techniques as appropriate to the exam, including the following: Automated exposure con trol and adjustment of the mA and/or KV according to patient size (this includes techniques or standa rdized protocols for targeted exams where dose is indication/reason for exam). IV CONTRAST: Administered COMPARISON: Chest CT with IV contrast of 02/09/2020 FINDINGS: PULMONARY ARTERIES: Suboptimal pulmonary arterial opacification. No large central embolus is identif ied. The segmental and subsegmental pulmonary arteries are less well evaluated. CARDIOVASCULAR: Left tunneled chest port from a jugular approach with tip near the cavoatrial juncti on. Aorta is normal caliber. MEDIASTINUM & DAY: No adenopathy or masses. LUNGS: Panlobular emphysema and subpleural honeycombing in the lower lobes with peripheral consolidat ion, most conspicuous in the lower lobes. This consolidation is new from the previous exam. Slight in crease in a 2 cm lobulated nodule in the anterior right upper lobe, now measuring 2.4 x 1.2 x 1.3 cm (transverse by AP by craniocaudal). PLEURAL SPACE: No pleural effusions or pneumothorax. OSSEOUS & SOFT TISSUE: Right mastectomy. Mild degenerative changes in the thoracic spine. ABDOMEN: Partially imaged 2.5 cm stone in the gallbladder neck, and partially exophytic mixed solid a nd cystic mass in the superior pole left kidney measuring 5.7 cm on the sagittal oblique reformats (i mage 22 of series 10). Similar heterogeneous enhancement in the right renal cortex, better evaluated on renal mass protocol abdominal MRI or CT. IMPRESSION: 1. Suboptimal pulmonary arterial opacification. No large central embolus is identified. The segmenta l and subsegmental pulmonary arteries are less well evaluated. 2. Panlobular emphysema and subpleural honeycombing in the lower lobes with peripheral consolidation , most conspicuous in the lower lobes. Findings may represent interstitial lung disease. Given the re latively rapid development of findings, consider possible drug associated organizing pneumonia in the differential. 3. Slight increase in size of a 2 cm lobulated nodule in the anterior right upper lobe, now measurin g 2.4 x 1.2 x 1.3 cm. 4. Partially imaged 2.5 cm stone in the gallbladder neck, and mixed solid and cystic mass in the sup erior pole of the left kidney, better evaluated on renal mass protocol MRI or CT. 5. Similar heterogeneous enhancement in the right renal cortex, better evaluated on renal mass laure col MRI or CT. Electronically signed by: Claire Momin MD (06/01/2020 10:23 AM) [id number]
[2020-06-01 11:00] VITALS: BP 108/58
[2020-06-01] MEDS ORDERED: REMDESIVIR LOAD in IV NORMAL SALINE 250ML TV IV ONE (12:00)
--- NOTE | 2020-06-01 13:15 | CONS ---
DATE OF CONSULTATION: PULMONARY CONSULTATION ATTENDING PHYSICIAN: Johan Bartlett MD. REASON FOR CONSULTATION: Respiratory failure, hypoxia, abnormal CT chest. HISTORY OF PRESENT ILLNESS: The patient is a 59-year-old female who was diagnosed with T2 N1, ER positive right breast cancer. She was previously treated with chemo including carboplatin, , and Herceptin. She has been on adjuvant therapy recently with Kadcyla. The patient was brought into the hospital with complaint of fatigue and weakness. She was also complaining of shortness of breath. She does not have any cough. The patient had no chest pain, no lower extremity edema. She smoked for about 40 years. No history of deep vein thrombosis or pulmonary embolism. The patient also has a diagnosis of mucinous adenocarcinoma of the lung, which has been treated with SBRT in 03/2020. It was a stage 1. CT of the chest was reviewed. There were no central pulmonary emboli. However, there was some suboptimal opacification of the distal pulmonary branches. There was evidence of subpleural honeycombing in the lower lobes as well as extensive emphysema and peripheral consolidation. These findings were suggestive of acute interstitial lung disease and relatively quick induration as her CT chest from 02/09/2020 did not show any significant interstitial lung disease. There was also slight increase in the 2 cm lobulated nodule. It now measures 2.4 cm. I have been asked to see her for further evaluation. She is now requiring 6 liters of oxygen. PAST MEDICAL HISTORY: Significant for: 1. History of right breast cancer T2 N1, ER positive and HER-2 positive, on adjuvant therapy with Kadcyla. 2. History of stage 1 non-small cell lung cancer. On biopsy, it was mucinous adenocarcinoma. Status post SBRT. 3. Forty years of tobacco use. PAST SURGICAL HISTORY: Including right breast mastectomy. ALLERGIES: IBUPROFEN. MEDICATIONS: Reviewed as listed in the [facility]AD including remdesivir, cefepime, doxycycline. REVIEW OF SYSTEMS: Twelve-point system obtained. Pertinent positives discussed in my history of present illness, otherwise noncontributory. All systems that were negative were reviewed as well. SOCIAL HISTORY: Forty years of tobacco use. PHYSICAL EXAMINATION: VITAL SIGNS: Reviewed. T-max of 101, blood pressure is stable, pulse ox 92% on 6-8 liters. NECK: Supple. Rest of the exam was done visually due to COVID-19. No paradoxical breathing. No skin rash. No leg edema. LABORATORY DATA: Reviewed. Her COVID-19 test is positive. BUN 15, creatinine 0.6. D-dimer 1.6. IMPRESSION: 1. Acute on chronic hypoxic respiratory failure secondary to multifactorial etiologies and includes a combination of underlying chronic obstructive pulmonary disease, likely drug-induced acute interstitial lung Pneumonitis and COVID-19 pneumonia. 2. The patient with right breast cancer T2 N1, ER positive, HER-2 positive, on adjuvant therapy with Kadcyla.( likely drug-induced acute interstitial lung Pneumonitis) 3. COVID-19 pneumonia. 4. 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 5. Abnormal liver function tests, could be related to COVID pneumonia. 6. Abnormal D-dimer, which could be secondary to multifactorial etiologies. No central pulmonary emboli. RECOMMENDATIONS: 1. Continue present oxygen at high flow. 2. Monitor the clinical course. 3. We will recommend to discontinue Kadcyla as it may be associated with acute interstitial lung disease/ Pneumonitis. 4. Continue remdesivir. 5. We will benefit from steroids. 6. Continue empiric antibiotic. 7. DVT prophylaxis with Lovenox. 8. Discussed with RN. We will follow along with you. ANABELLA TODD MD DR: LUIS ALBERTO/marco JOB#: [id number] / [id number] MARANDA
--- NOTE | 2020-06-01 13:45 | NUR ---
SW following for discharge planning. Spoke with RN and reviewed chart. Pt COVID result came back positive. Pt started on IV Remdesivir, day 1. Pt remains on 02 at 8l and IV Maxipime. SW following.
[2020-06-01 15:00] VITALS: BP 137/81
[2020-06-01] MEDS: ENOXAPARIN 40 MG/0.4 ML SYRINGE. SQ SCH (15:02)
[2020-06-01] MEDS: DEXAMETHASONE 4 MG TABLET PO SCH (15:02)
[2020-06-01 19:00] VITALS: BP 129/68
[2020-06-01] MEDS: PATCH REMOVAL. MC SCH (21:00)
[2020-06-01] MEDS ORDERED: PATCH REMOVAL. MC SCH (21:00)
[2020-06-01 23:00] VITALS: BP 113/68
[2020-06-01] MEDS ORDERED: LIDOCAINE (700MG/PATCH) PATCH. TD SCH (23:15)
[2020-06-01] MEDS: LIDOCAINE (700MG/PATCH) PATCH. TD SCH (23:57)
[2020-06-02 03:00] VITALS: BP 113/64
[2020-06-02] MEDS: IV NORMAL SALINE 1000ML BAG 1,000 ML IV SCH ×2 (04:00→14:00)
[2020-06-02] MEDS: CEFEPIME HCL IV Push 2 GM VIAL. IVP SCH ×3 (05:20→21:17)
[2020-06-02] MEDS: ACETAMINOPHEN 325 MG TABLET. PO PRN (05:20)
[2020-06-02 07:00] VITALS: BP 142/97
--- NOTE | 2020-06-02 08:07 | PDOC ---
PROGRESS NOTES Date of Service DATE: 06/02/20 TIME: 07:54 Subjective Subjective No interval events. Continues to be oxygen dependent. CT chest was reviewed. Review of systems negative for fever, chills, nausea, vomiting. Positive for shortness of breath and cough Objective Objective Vital Signs Date Time Temp Pulse Resp B/P (MAP) Pulse Ox O2 Delivery O2 Flow Rate FiO2 06/02/20 03:00 97.1 79 18 113/64 (80) 91 Nasal Cannula 9.0 97.1 Intake and Output 06/02/20 07:00 Intake Total 555 ml Output Total 100 ml Balance 455 ml Intake Oral 555 ml Output Urine Total 100 ml # Bowel Movements 1 Physical Exam Abdomen: Normal bowel sounds, Soft Heart: Regular rate Extremities: No cyanosis General: Alert, Oriented X3 HEENT: Atraumatic Lungs: Other (Decreased air entry) MUSCULOSKELETAL: No swelling Neck: Supple Neuro: Normal speech Psych/Mental Status: Mental status NL Skin: No rashes Assessment Assessment Right breast cancer T2N1 ER positive HER-2 positive on adjuvant therapy with Kadcyla Abnormal LFTs: AST 121 and ALT 81 compared to 49 and 87 respectively on 05/21/2020 Acute on chronic hypoxic respiratory failure Interstitial pneumonitis, likely from trastuzumab emtansine COVID-19 infection Generalized weakness ZACARIAS Hyponatremia likely from dehydration Thrombocytopenia, secondary to Kadcyla COPD Stage I non-small cell lung cancer, status post SBRT in March 2020 Plan Plan of Care -Reviewed CT chest. Would agree with pulmonology that appearance is more consistent with drug-induced pneumonitis. Discussed with Dr. Mcdaniel -We will plan to permanently discontinue trastuzumab emtansine given grade 3 interstitial pneumonitis -Given pre-existing respiratory failure from COPD that has been exacerbated by pneumonitis from Kadcyla, would favor foregoing additional HER-2 directed the rapy. Benefits and risks of this can be discussed further as outpatient. -She has not begun adjuvant endocrine therapy at this point. Anticipate starting adjuvant endocrine therapy as outpatient for hormone receptor positive breast cancer given anticipated incomplete adjuvant therapy for HER-2 positive disease -Continue supportive care for acute respiratory failure with oxygen supplementation -Would defer to pulmonology regarding steroid taper. Favor extended taper over 3 to 4 weeks and can repeat CT chest at that point -Plan to repeat LFTs as outpatient -Will continue to follow hospital course and arrange follow-up visit with me 1 to 2 weeks after dismissal from hospital Lio Graves MD Medical Oncology/Hematology Ph: [phone] Comment Review of Relevant I have reviewed the following items lobo (where applicable) has been applied. Labs Laboratory Tests Test 05/31/20 12:35 06/01/20 08:07 D-Dimer (Akila) 1.60 ug/mlFEU (0.00-0.50) White Blood Count 4.3 x10^3/uL (4.0-11.0) Red Blood Count 4.41 x10^6/uL (3.50-5.40) Hemoglobin 14.1 g/dL (12.0-15.5) Hematocrit 40.6 % (36.0-47.0) Mean Corpuscular Volume 92 fL (79-100) Mean Corpuscular Hemoglobin 32 pg (25-35) Mean Corpuscular Hemoglobin Concent 35 g/dL (31-37) Red Cell Distribution Width 15.6 % (11.5-14.5) Platelet Count 78 x10^3/uL (140-400) Neutrophils (%) (Auto) 79 % (31-73) Lymphocytes (%) (Auto) 15 % (24-48) Monocytes (%) (Auto) 6 % (0-9) Eosinophils (%) (Auto) 0 % (0-3) Basophils (%) (Auto) 1 % (0-3) Neutrophils # (Auto) 3.4 x10^3/uL (1.8-7.7) Lymphocytes # (Auto) 0.6 x10^3/uL (1.0-4.8) Monocytes # (Auto) 0.2 x10^3/uL (0.0-1.1) Eosinophils # (Auto) 0.0 x10^3/uL (0.0-0.7) Basophils # (Auto) 0.0 x10^3/uL (0.0-0.2) Sodium Level 134 mmol/L (136-145) Potassium Level 3.6 mmol/L (3.5-5.1) Chloride Level 98 mmol/L (98-107) Carbon Dioxide Level 25 mmol/L (21-32) Anion Gap 11 (6-14) Blood Urea Nitrogen 15 mg/dL (7-20) Creatinine 0.6 mg/dL (0.6-1.0) Estimated GFR (Cockcroft-Gault) 102.0 BUN/Creatinine Ratio 25 (6-20) Glucose Level 119 mg/dL (70-99) Calcium Level 8.1 mg/dL (8.5-10.1) Magnesium Level 1.9 mg/dL (1.8-2.4) Total Bilirubin 0.5 mg/dL (0.2-1.0) Aspartate Amino Transf (AST/SGOT) 116 U/L (15-37) Alanine Aminotransferase (ALT/SGPT) 69 U/L (14-59) Alkaline Phosphatase 37 U/L (46-116) Total Protein 6.5 g/dL (6.4-8.2) Albumin 2.7 g/dL (3.4-5.0) Albumin/Globulin Ratio 0.7 (1.0-1.7) Procalcitonin < 0.10 ng/mL (0.00-0.10) Laboratory Tests Test 06/01/20 08:07 White Blood Count 4.3 x10^3/uL (4.0-11.0) Red Blood Count 4.41 x10^6/uL (3.50-5.40) Hemoglobin 14.1 g/dL (12.0-15.5) Hematocrit 40.6 % (36.0-47.0) Mean Corpuscular Volume 92 fL (79-100) Mean Corpuscular Hemoglobin 32 pg (25-35) Mean Corpuscular Hemoglobin Concent 35 g/dL (31-37) Red Cell Distribution Width 15.6 % (11.5-14.5) Platelet Count 78 x10^3/uL (140-400) Neutrophils (%) (Auto) 79 % (31-73) Lymphocytes (%) (Auto) 15 % (24-48) Monocytes (%) (Auto) 6 % (0-9) Eosinophils (%) (Auto) 0 % (0-3) Basophils (%) (Auto) 1 % (0-3) Neutrophils # (Auto) 3.4 x10^3/uL (1.8-7.7) Lymphocytes # (Auto) 0.6 x10^3/uL (1.0-4.8) Monocytes # (Auto) 0.2 x10^3/uL (0.0-1.1) Eosinophils # (Auto) 0.0 x10^3/uL (0.0-0.7) Basophils # (Auto) 0.0 x10^3/uL (0.0-0.2) Sodium Level 134 mmol/L (136-145) Potassium Level 3.6 mmol/L (3.5-5.1) Chloride Level 98 mmol/L (98-107) Carbon Dioxide Level 25 mmol/L (21-32) Anion Gap 11 (6-14) Blood Urea Nitrogen 15 mg/dL (7-20) Creatinine 0.6 mg/dL (0.6-1.0) Estimated GFR (Cockcroft-Gault) 102.0 BUN/Creatinine Ratio 25 (6-20) Glucose Level 119 mg/dL (70-99) Calcium Level 8.1 mg/dL (8.5-10.1) Magnesium Level 1.9 mg/dL (1.8-2.4) Total Bilirubin 0.5 mg/dL (0.2-1.0) Aspartate Amino Transf (AST/SGOT) 116 U/L (15-37) Alanine Aminotransferase (ALT/SGPT) 69 U/L (14-59) Alkaline Phosphatase 37 U/L (46-116) Total Protein 6.5 g/dL (6.4-8.2) Albumin 2.7 g/dL (3.4-5.0) Albumin/Globulin Ratio 0.7 (1.0-1.7) Procalcitonin < 0.10 ng/mL (0.00-0.10) Medications Current Medications Sodium Chloride 1,000 ml @ 1,000 mls/hr 1X ONCE IV Last administered on 05/30/20at 13:27; Start 05/30/20 at 13:30; Stop 05/30/20 at 14:29; Status DC Acetaminophen (Tylenol) 1,000 mg 1X ONCE PO Last administered on 05/30/20at 14:21; Start 05/30/20 at 13:30; Stop 05/30/20 at 13:31; Status DC Sodium Chloride 1,000 ml @ 125 mls/hr Q8H IV Last administered on 05/31/20at 00:01; Start 05/30/20 at 13:45; Stop 05/31/20 at 13:44; Status DC Cefepime HCl (Maxipime) 1 gm 1X ONCE IVP Last administered on 05/30/20at 16:32; Start 05/30/20 at 15:00; Stop 05/30/20 at 15:01; Status DC Sennosides (Senna) 17.2 mg PRN BID PRN PO CONSTIPATION; Start 05/30/20 at 14:30 Docusate Sodium (Colace) 100 mg PRN DAILY PRN PO HARD STOOLS; Start 05/30/20 at 14:30 Ondansetron HCl (Zofran) 4 mg PRN Q6HRS PRN IVP NAUSEA/VOMITING; Start 05/30/20 at 14:30 Dextrose (Dextrose 50%-Water Syringe) 12.5 gm PRN Q15MIN PRN IV SEE COMMENTS; Start 05/30/20 at 14:30 Enoxaparin Sodium (Lovenox 40mg Syringe) 40 mg Q24H SQ Last administered on 06/01/20at 15:02; Start 05/30/20 at 15:00 Morphine Sulfate (Morphine Sulfate) 2 mg PRN Q2HR PRN IV SEVERE PAIN 7-10 Last administered on 05/30/20at 16:31; Start 05/30/20 at 04:00; Stop 05/31/20 at 03:59; Status DC Prochlorperazine Edisylate (Compazine) 10 mg Q6HRS PRN IV VOMITING 2ND CHOICE; Start 05/30/20 at 14:30 Acetaminophen (Tylenol) 650 mg PRN Q6HRS PRN PO MILD PAIN / TEMP > 100.3'F Last administered on 06/02/20at 05:20; Start 05/31/20 at 00:15 Potassium Chloride (Klor-Con) 40 meq 1X ONCE PO Last administered on 05/31/20at 10:03; Start 05/31/20 at 08:00; Stop 05/31/20 at 08:01; Status DC Non-Formulary Medication (Albuterol Sulfate (Ventolin Hfa Inhaler)) 2 puff PRN Q4-6HRS PRN INH SHORTNESS OF BREATH; Start 05/31/20 at 11:30; Status UNV Sodium Chloride 1,000 ml @ 100 mls/hr Q10H IV Last administered on 06/01/20at 18:00; Start 05/31/20 at 12:00 Albuterol Sulfate (Ventolin Neb Soln) 2.5 mg PRN Q4HRS PRN NEB SHORTNESS OF BREATH; Start 05/31/20 at 12:00 Cefepime HCl (Maxipime) 2 gm Q8HRS IVP Last administered on 06/02/20at 05:20; Start 05/31/20 at 13:00 Doxycycline Hyclate (Vibra-Tab) 100 mg BID PO Last administered on 06/01/20at 21:31; Start 05/31/20 at 13:00 Albuterol Sulfate (Ventolin Hfa) 1 puff PRN Q4HRS PRN INH SHORTNESS OF BREATH Last administered on 05/31/20at 13:38; Start 05/31/20 at 12:45 Hydralazine HCl (Apresoline) 10 mg DAILY PO Last administered on 06/01/20at 08:18; Start 06/01/20 at 09:00 Hydrochlorothiazide (Hydrodiuril) 12.5 mg DAILY PO Last administered on 06/01/20at 08:18; Start 06/01/20 at 09:00 Fluticasone/ Vilanterol (Breo Ellipta 100-25 Mcg) 1 puff DAILY INH Last administered on 06/01/20at 08:13; Start 05/31/20 at 14:00 Losartan Potassium (Cozaar) 100 mg DAILY PO Last administered on 06/01/20at 08:19; Start 06/01/20 at 09:00 Varenicline (Chantix) 1 mg BID PO Last administered on 06/01/20at 21:30; Start 05/31/20 at 21:00 Iohexol (Omnipaque 350 Mg/ml) 80 ml 1X ONCE IV Last administered on 06/01/20at 08:45; Start 06/01/20 at 08:45; Stop 06/01/20 at 08:51; Status DC Info (CONTRAST GIVEN -- Rx MONITORING) 1 each PRN DAILY PRN MC SEE COMMENTS; Start 06/01/20 at 09:00; Stop 06/03/20 at 08:59 Remdesivir 200 mg/ Sodium Chloride 210 ml @ 210 mls/hr 1X ONCE IV Last administered on 06/01/20at 12:03; Start 06/01/20 at 12:00; Stop 06/01/20 at 12:59; Status DC Remdesivir 100 mg/ Sodium Chloride 230 ml @ 460 mls/hr Q24H IV ; Start 06/02/20 at 12:00; Stop 06/05/20 at 12:29 Dexamethasone (Decadron) 6 mg DAILYWBKFT PO Last administered on 06/01/20at 15:02; Start 06/01/20 at 13:00 Lidocaine (Lidoderm) 1 patch DAILY TD ; Start 06/01/20 at 23:15; Status Cancel Miscellaneous (Lidoderm Patch Removal) 1 ea QHS ; Start 06/01/20 at 21:00; Status Cancel Lidocaine (Lidoderm) 1 patch DAILY TD Last administered on 06/01/20at 23:57; Start 06/01/20 at 23:30 Miscellaneous (Lidoderm Patch Removal) 1 ea QHS ; Start 06/01/20 at 21:00 Active Scripts Active Reported [kadcyla] 1 Ea IV UD chemotherapy every 3 weeks Chantix (Varenicline Tartrate) 1 Mg Tablet 1 Mg PO BID Hydrochlorothiazide Tablet (Hydrochlorothiazide) 25 Mg Tablet 12.5 Mg PO DAILY Hydralazine Hcl 10 Mg Tablet 10 Mg PO DAILY Ventolin Hfa Inhaler (Albuterol Sulfate) 18 Gm Hfa.aer.ad 2 Puff INH PRN Q4-6HRS PRN Breo Ellipta 100-25 Mcg Inh (Fluticasone/Vilanterol) 1 Each Aer.pow.ba 2 Puff IH DAILY Vitals/I & O Vital Sign - Last 24 Hours 06/01/20 06/01/20 06/01/20 06/01/20 08:00 08:18 08:19 11:00 Temp 99.5 99.5 Pulse 100 100 95 Resp 19 B/P (MAP) 133/78 133/78 108/58 (75) Pulse Ox 92 O2 Delivery Nasal Cannula Nasal Cannula O2 Flow Rate 8.0 8.0 06/01/20 06/01/20 06/01/20 06/01/20 15:00 19:00 20:10 23:00 Temp 100.4 100.4 99.9 100.4 100.4 99.9 Pulse 104 92 101 Resp 19 20 B/P (MAP) 137/81 (99) 129/68 (88) 113/68 (83) Pulse Ox 90 90 90 O2 Delivery Nasal Cannula Nasal Cannula Nasal Cannula Nasal Cannula O2 Flow Rate 8.0 8.0 9.0 9.0 06/02/20 03:00 Temp 97.1 97.1 Pulse 79 Resp 18 B/P (MAP) 113/64 (80) Pulse Ox 91 O2 Delivery Nasal Cannula O2 Flow Rate 9.0 Intake and Output 06/01/20 06/01/20 06/02/20 15:00 23:00 07:00 Intake Total 55 ml 260 ml 240 ml Output Total 100 ml Balance -45 ml 260 ml 240 ml Justifications for Admission Other Justification generalized weakness ALBA GRAVES MD Jun 02, 2020 08:07
[2020-06-02] MEDS: LIDOCAINE (700MG/PATCH) PATCH. TD SCH (08:30)
[2020-06-02] MEDS: DEXAMETHASONE 4 MG TABLET PO SCH (08:31)
[2020-06-02] MEDS: DOXYCYCLINE HYCLATE 100 MG TABLET PO SCH ×2 (08:31→21:17)
[2020-06-02] MEDS: VARENICLINE 0.5 MG TABLET. PO SCH ×2 (08:32→21:17)
[2020-06-02] MEDS: hydroCHLOROthiazide 25 MG TABLET PO SCH (08:32)
[2020-06-02] MEDS: LOSARTAN POTASSIUM 50 MG TABLET. PO SCH (08:33)
[2020-06-02] MEDS: hydrALAZINE 10 MG TABLET PO SCH (08:33)
[2020-06-02] MEDS: FLUTICASONE/VILANTEROL 100/25 INHALER. INH SCH (08:34)
[2020-06-02] MEDS: ALBUTEROL SULFATE 8GM INHALER. INH PRN (08:35)
[2020-06-02 09:00] LABS: BASO % 0 % (0-3); EOS % 0 % (0-3); HEMATOCRIT 40.7 % (36.0-47.0); HEMOGLOBIN 13.8 g/dL (12.0-15.5); LYMPH # 0.6 x10^3/uL (1.0-4.8); LYMPH % 17 % (24-48); MEAN CORPUSCULAR HEMOGLOBIN 31 pg (25-35); MEAN CORPUSCULAR HGB CONC 34 g/dL (31-37); MEAN CORPUSCULAR VOLUME 92 fL (79-100); MONO # 0.3 x10^3/uL (0.0-1.1); MONO % 9 % (0-9); NEUT # 2.6 x10^3/uL (1.8-7.7); NEUT % 75 % (31-73); PLATELET COUNT 96 x10^3/uL (140-400); RED BLOOD COUNT 4.41 x10^6/uL (3.50-5.40); RED CELL DISTRIBUTION WIDTH 15.6 % (11.5-14.5); WHITE BLOOD COUNT 3.4 x10^3/uL (4.0-11.0)
[2020-06-02 09:15] LABS: CALCIUM 8.5 mg/dL (8.5-10.1); CREATININE 0.6 mg/dL (0.6-1.0); POTASSIUM 3.4 mmol/L (3.5-5.1)
[2020-06-02 09:21] LABS: ALBUMIN 2.7 g/dL (3.4-5.0); DIRECT BILIRUBIN 0.2 mg/dL (0.0-0.2); TOTAL BILIRUBIN 0.5 mg/dL (0.2-1.0); TOTAL PROTEIN 5.9 g/dL (6.4-8.2)
--- NOTE | 2020-06-02 09:30 | PDOC ---
PULMONARY PROGRESS NOTES DATE: 06/02/20 TIME: 09:23 Subjective Pt. is resting on 9 liters N/C no overnight concerns denies increased SOA or cough Feeling a little better today Vitals Vital Signs Date Time Temp Pulse Resp B/P (MAP) Pulse Ox O2 Delivery O2 Flow Rate FiO2 06/02/20 08:33 97 142/97 06/02/20 07:00 97.7 20 90 Nasal Cannula 9.0 97.7 ROS: No Nausea, No Chest Pain, No Abdominal Pain, No Increase Cough General: Alert Lungs: Other (Decreased breath sounds, crackles perihierally) Cardiovascular: S1, S2 Abdomen: Soft Neuro Exam: Alert Extremities: No Edema Skin: Warm, Dry Labs Laboratory Tests Test 05/31/20 12:35 06/01/20 08:07 06/02/20 08:25 D-Dimer (Akila) 1.60 ug/mlFEU (0.00-0.50) White Blood Count 4.3 x10^3/uL (4.0-11.0) 3.4 x10^3/uL (4.0-11.0) Red Blood Count 4.41 x10^6/uL (3.50-5.40) 4.41 x10^6/uL (3.50-5.40) Hemoglobin 14.1 g/dL (12.0-15.5) 13.8 g/dL (12.0-15.5) Hematocrit 40.6 % (36.0-47.0) 40.7 % (36.0-47.0) Mean Corpuscular Volume 92 fL (79-100) 92 fL (79-100) Mean Corpuscular Hemoglobin 32 pg (25-35) 31 pg (25-35) Mean Corpuscular Hemoglobin Concent 35 g/dL (31-37) 34 g/dL (31-37) Red Cell Distribution Width 15.6 % (11.5-14.5) 15.6 % (11.5-14.5) Platelet Count 78 x10^3/uL (140-400) 96 x10^3/uL (140-400) Neutrophils (%) (Auto) 79 % (31-73) 75 % (31-73) Lymphocytes (%) (Auto) 15 % (24-48) 17 % (24-48) Monocytes (%) (Auto) 6 % (0-9) 9 % (0-9) Eosinophils (%) (Auto) 0 % (0-3) 0 % (0-3) Basophils (%) (Auto) 1 % (0-3) 0 % (0-3) Neutrophils # (Auto) 3.4 x10^3/uL (1.8-7.7) 2.6 x10^3/uL (1.8-7.7) Lymphocytes # (Auto) 0.6 x10^3/uL (1.0-4.8) 0.6 x10^3/uL (1.0-4.8) Monocytes # (Auto) 0.2 x10^3/uL (0.0-1.1) 0.3 x10^3/uL (0.0-1.1) Eosinophils # (Auto) 0.0 x10^3/uL (0.0-0.7) 0.0 x10^3/uL (0.0-0.7) Basophils # (Auto) 0.0 x10^3/uL (0.0-0.2) 0.0 x10^3/uL (0.0-0.2) Sodium Level 134 mmol/L (136-145) 137 mmol/L (136-145) Potassium Level 3.6 mmol/L (3.5-5.1) 3.4 mmol/L (3.5-5.1) Chloride Level 98 mmol/L (98-107) 100 mmol/L (98-107) Carbon Dioxide Level 25 mmol/L (21-32) 25 mmol/L (21-32) Anion Gap 11 (6-14) 12 (6-14) Blood Urea Nitrogen 15 mg/dL (7-20) 15 mg/dL (7-20) Creatinine 0.6 mg/dL (0.6-1.0) 0.6 mg/dL (0.6-1.0) Estimated GFR (Cockcroft-Gault) 102.0 102.0 BUN/Creatinine Ratio 25 (6-20) Glucose Level 119 mg/dL (70-99) 139 mg/dL (70-99) Calcium Level 8.1 mg/dL (8.5-10.1) 8.5 mg/dL (8.5-10.1) Magnesium Level 1.9 mg/dL (1.8-2.4) Total Bilirubin 0.5 mg/dL (0.2-1.0) Aspartate Amino Transf (AST/SGOT) 116 U/L (15-37) Alanine Aminotransferase (ALT/SGPT) 69 U/L (14-59) Alkaline Phosphatase 37 U/L (46-116) Total Protein 6.5 g/dL (6.4-8.2) Albumin 2.7 g/dL (3.4-5.0) Albumin/Globulin Ratio 0.7 (1.0-1.7) Procalcitonin < 0.10 ng/mL (0.00-0.10) Laboratory Tests Test 06/02/20 08:25 White Blood Count 3.4 x10^3/uL (4.0-11.0) Red Blood Count 4.41 x10^6/uL (3.50-5.40) Hemoglobin 13.8 g/dL (12.0-15.5) Hematocrit 40.7 % (36.0-47.0) Mean Corpuscular Volume 92 fL (79-100) Mean Corpuscular Hemoglobin 31 pg (25-35) Mean Corpuscular Hemoglobin Concent 34 g/dL (31-37) Red Cell Distribution Width 15.6 % (11.5-14.5) Platelet Count 96 x10^3/uL (140-400) Neutrophils (%) (Auto) 75 % (31-73) Lymphocytes (%) (Auto) 17 % (24-48) Monocytes (%) (Auto) 9 % (0-9) Eosinophils (%) (Auto) 0 % (0-3) Basophils (%) (Auto) 0 % (0-3) Neutrophils # (Auto) 2.6 x10^3/uL (1.8-7.7) Lymphocytes # (Auto) 0.6 x10^3/uL (1.0-4.8) Monocytes # (Auto) 0.3 x10^3/uL (0.0-1.1) Eosinophils # (Auto) 0.0 x10^3/uL (0.0-0.7) Basophils # (Auto) 0.0 x10^3/uL (0.0-0.2) Sodium Level 137 mmol/L (136-145) Potassium Level 3.4 mmol/L (3.5-5.1) Chloride Level 100 mmol/L (98-107) Carbon Dioxide Level 25 mmol/L (21-32) Anion Gap 12 (6-14) Blood Urea Nitrogen 15 mg/dL (7-20) Creatinine 0.6 mg/dL (0.6-1.0) Estimated GFR (Cockcroft-Gault) 102.0 Glucose Level 139 mg/dL (70-99) Calcium Level 8.5 mg/dL (8.5-10.1) Medications Active Scripts Medications Dose Route/Sig Max Daily Dose Days Date Category Dose Instructions [kadcyla] 1 Ea IV UD 03/12/20 Reported chemotherapy every 3 weeks Chantix (Varenicline Tartrate) 1 Mg Tablet 1 Mg PO BID 10/28/19 Reported Hydrochlorothiazide Tablet (Hydrochlorothiazide) 25 Mg Tablet 12.5 Mg PO DAILY 05/23/19 Reported Hydralazine Hcl 10 Mg Tablet 10 Mg PO DAILY 05/23/19 Reported Ventolin Hfa Inhaler (Albuterol Sulfate) 18 Gm Hfa.aer.ad 2 Puff INH PRN Q4-6HRS PRN 05/23/19 Reported Breo Ellipta 100-25 Mcg Inh (Fluticasone/Vilanterol) 1 Each Aer.pow.ba 2 Puff IH DAILY 05/23/19 Reported Comments CTA chest IMPRESSION: 1. Suboptimal pulmonary arterial opacification. No large central embolus is identified. The segmental and subsegmental pulmonary arteries are less well evaluated. 2. Panlobular emphysema and subpleural honeycombing in the lower lobes with peripheral consolidation, most conspicuous in the lower lobes. Findings may represent interstitial lung disease. Given the relatively rapid development of findings, consider possible drug associated organizing pneumonia in the differential. 3. Slight increase in size of a 2 cm lobulated nodule in the anterior right upper lobe, now measuring 2.4 x 1.2 x 1.3 cm. 4. Partially imaged 2.5 cm stone in the gallbladder neck, and mixed solid and cystic mass in the superior pole of the left kidney, better evaluated on renal mass protocol MRI or CT. 5. Similar heterogeneous enhancement in the right renal cortex, better evaluated on renal mass protocol MRI or CT. Impression . IMPRESSION: 1. Acute on chronic hypoxic respiratory failure secondary to multifactorial etiologies and includes a combination of underlying chronic obstructive pulmonary disease, likely drug-induced acute interstitial lung Pneumonitis and COVID-19 pneumonia. 2. The patient with right breast cancer T2 N1, ER positive, HER-2 positive, on adjuvant therapy with Kadcyla.( likely drug-induced acute interstitial lung Pneumonitis) 3. COVID-19 pneumonia. 4. 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 5. Abnormal liver function tests, could be related to COVID pneumonia. 6. Abnormal D-dimer, which could be secondary to multifactorial etiologies. No central pulmonary emboli. Plan . RECOMMENDATIONS: Continue supplemental oxygen, currently on 9 liters N/C, wear 3 liters N/C at baseline Follow HEM/ONC recs--recommend to discontinue Kadcyla as it may be associated with acute interstitial lung disease/ Pneumonitis.D/W MED ONCOLOGY Continue remdesivir for full course Continue steroids . would change to PO prednisone from 06/03 and slow taper over 4 weeks Continue empiric antibiotics repeat ct chest in 6-8 weeks Pt. to follow up in our office with me in 07/2020 DVT/GI PPX D/W ANABELLA MCKINNEY MD Jun 02, 2020 09:30
[2020-06-02] MEDS ORDERED: POTASSIUM CHLORIDE 20 MEQ TABLET.ER. PO ONE (09:45)
--- NOTE | 2020-06-02 10:49 | PDOC ---
[employer] PROGRESS NOTE Date of Service DOS: DATE: 06/02/20 TIME: 10:45 Chief Complaint Chief Complaint Investigation for COVID-19 infection Acute generalized weakness secondary to chemotherapy versus COPD exacerbation Fever concerning for Port-A-Cath infection Polycythemia suggestive of chronic tobacco use Thrombocytopenia Acute electrolyte derangement suggestive of volume depletionhyponatremia, hypokalemia, hypochloremia ZACARIAS due to vasomotor nephropathy Mild transaminitis Admit to medicine for further management Continue IV fluids Regular diet Continue IV cefepime Pending blood and urine cultures Pending Covid test Oncology consult Electrolyte replacement as needed Lovenox for DVT prophylaxis Protonix GI prophylaxis ADA diet Full code Discussed with RN and SW Disposition pending oncology evaluation Surrogate decision maker is the History of Present Illness History of Present Illness 59 year old female, accompanied by her , who presents to the emergency department with complaints of generalized weakness for the last 7 days. Patient states she had her last chemotherapy treatment for right-sided breast cancer on May [id number]. She states for the last week she is just felt fatigued and weak. She states she is also had a decreased appetite. Patient denies any fever, cough, increased shortness of breath, chest pain, abdominal pain, nausea, vomiting, diarrhea, headache, or loss of taste/smell. Patient denies any swelling of her lower extremities. She has a history of COPD and states that her breathing is not more labored than usual. She constantly wears 4 L of oxygen via nasal cannula due to her COPD. She states that she stopped smoking approximately 1 week ago. Patient denies any known exposure to COVID-19, she states she has been staying home. 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 The patient currently denies any pain. She reports she had a right mastectomy back in October, she denies any redness at her surgical site. Patient denies any redness, or warmth at her Port-A-Cath site. Patient reports that her oncologist is Dr. Glasgow, she is currently on a chemotherapy treatment that she is not supposed to take any ibuprofen with. 05/31: Patient seen and evaluated bedside. COVID-19 pending. She has a history of COPD and is currently breathing on 6 L oxygen, which is increased from reported 4L at baseline. She is tachycardic and febrile, will obtain D-dimer. Will obtain albuterol inhaler from pharmacy and resume home medications. Continue antibiotic coverage for COPD exacerbation possible community-acquired pneumonia. Discussed with RN. 06/01: Patient seen and evaluated bedside. COVID-19 positive. After discussion of risk respiratory, patient was comfortable initiating remdesivir. Will follow LFTs. Oxygen requirement is increasing currently on 10 L nasal cannula. Febrile, tachycardic, tachypneic. Obtain CTA this morning that was negative for PE. Will consult pulmonology for further recommendations. 06/02: Patient seen and evaluated. Remdesivir day 2/, will continue to follow LFTs. She is currently breathing on 9 L nasal cannula, and at baseline requiring 4 L. Hematology/oncology with plan to permanently discontinue trastuzumab emtansine given grade 3 interstitial pneumonitis. Discussed with pulmonology, will continue to wean oxygen to patient's baseline, and provide extended steroid taper. Still with complaints of diarrhea. She is C. difficile negative, will add Lomotil as needed. Discussed with RN and manager social. Vitals/I&O Vitals/I&O: Vital Signs Date Time Temp Pulse Resp B/P (MAP) Pulse Ox O2 Delivery O2 Flow Rate FiO2 06/02/20 08:33 97 142/97 06/02/20 08:00 Nasal Cannula 9.0 06/02/20 07:00 97.7 20 90 97.7 I & O 0 06/01/20 06/01/20 06/02/20 15:00 23:00 07:00 Intake Total 55 ml 260 ml 240 ml Output Total 100 ml Balance -45 ml 260 ml 240 ml Physical Exam General: Alert, Oriented X3 Heart: Regular rate Lungs: Other (Decreased breath sounds, crackles perihierally) Abdomen: Normal bowel sounds, Soft Extremities: No cyanosis Skin: No rashes Labs Labs: Laboratory Tests Test 06/02/20 08:25 White Blood Count 3.4 x10^3/uL (4.0-11.0) Red Blood Count 4.41 x10^6/uL (3.50-5.40) Hemoglobin 13.8 g/dL (12.0-15.5) Hematocrit 40.7 % (36.0-47.0) Mean Corpuscular Volume 92 fL (79-100) Mean Corpuscular Hemoglobin 31 pg (25-35) Mean Corpuscular Hemoglobin Concent 34 g/dL (31-37) Red Cell Distribution Width 15.6 % (11.5-14.5) Platelet Count 96 x10^3/uL (140-400) Neutrophils (%) (Auto) 75 % (31-73) Lymphocytes (%) (Auto) 17 % (24-48) Monocytes (%) (Auto) 9 % (0-9) Eosinophils (%) (Auto) 0 % (0-3) Basophils (%) (Auto) 0 % (0-3) Neutrophils # (Auto) 2.6 x10^3/uL (1.8-7.7) Lymphocytes # (Auto) 0.6 x10^3/uL (1.0-4.8) Monocytes # (Auto) 0.3 x10^3/uL (0.0-1.1) Eosinophils # (Auto) 0.0 x10^3/uL (0.0-0.7) Basophils # (Auto) 0.0 x10^3/uL (0.0-0.2) Sodium Level 137 mmol/L (136-145) Potassium Level 3.4 mmol/L (3.5-5.1) Chloride Level 100 mmol/L (98-107) Carbon Dioxide Level 25 mmol/L (21-32) Anion Gap 12 (6-14) Blood Urea Nitrogen 15 mg/dL (7-20) Creatinine 0.6 mg/dL (0.6-1.0) Estimated GFR (Cockcroft-Gault) 102.0 Glucose Level 139 mg/dL (70-99) Calcium Level 8.5 mg/dL (8.5-10.1) Total Bilirubin 0.5 mg/dL (0.2-1.0) Direct Bilirubin 0.2 mg/dL (0.0-0.2) Aspartate Amino Transf (AST/SGOT) 116 U/L (15-37) Alanine Aminotransferase (ALT/SGPT) 74 U/L (14-59) Alkaline Phosphatase 41 U/L (46-116) Total Protein 5.9 g/dL (6.4-8.2) Albumin 2.7 g/dL (3.4-5.0) Assessment and Plan Assessmemt and Plan Problems Medical Problems: (1) ZACARIAS (acute kidney injury) Status: Acute (2) Dehydration Status: Acute (3) Fever Status: Acute (4) Hx of breast cancer Status: Acute (5) Hyponatremia Status: Acute (6) Person under investigation for COVID-19 Status: Acute Comment Review of Relevant I have reviewed the following items lobo (where applicable) has been applied. Medications: Current Medications Medications (Trade) Dose Ordered Sig/Micaela Route PRN Reason Start Time Stop Time Status Last Admin Dose Admin Remdesivir 200 mg/ Sodium Chloride 210 ml @ 210 mls/hr 1X ONCE IV 06/01/20 12:00 06/01/20 12:59 DC 06/01/20 12:03 Dexamethasone (Decadron) 6 mg [id number] PO 06/01/20 13:00 06/02/20 08:31 Lidocaine (Lidoderm) 1 patch DAILY TD 06/01/20 23:30 06/02/20 08:30 Potassium Chloride (Klor-Con) 20 meq 1X ONCE PO 06/02/20 09:45 06/02/20 09:46 DC 06/02/20 10:28 Justifications for Admission Other Justification generalized weakness KING TENORIO MD Jun 02, 2020 10:49
[2020-06-02 11:00] VITALS: BP 139/81
--- NOTE | 2020-06-02 12:17 | NUR ---
KEVIN following for discharge planning. Spoke with RN and reviewed chart. Pt remains on 02 and IV Remdesivir, day 2. PT recommendation is home with assistance. KEVIN attempted to call into pt's room, no answer. KEVIN spoke with pt's spouse at [phone] and he confirmed pt has home 02. Pt's spouse waiting on his COVID results and then will likely be returning to work so he wants HH for patient on discharge. Pt's spouse stated no preference in provider. Referral to Ruth Ann with [facility]. Patient choice of vendor form completed. Pt will likely discharge in the next 3 or 4 days once finished with IV Remdesivir. KEVIN following. Addendum: 06/02/20 at 1406 by WINSTON BROWN Spoke with Ruth Ann from [facility] and they are [id number] with patient. KEVIN sent referrals to [facility] , [facility] and [facility] to see if any of these providers are in-network and able to take pt as spouse Tremayne indicated no preference in provider.
[2020-06-02] MEDS: REMDESIVIR 100mg in NORMAL SALINE 250ML X 4 DAYS IV SCH (12:25)
[2020-06-02] MEDS ORDERED: DIPHENOXYLATE/ATROPINE TABLET. PO PRN (13:00)
[2020-06-02 15:00] VITALS: BP 148/88
[2020-06-02] MEDS: ENOXAPARIN 40 MG/0.4 ML SYRINGE. SQ SCH (17:25)
[2020-06-02 19:00] VITALS: BP 136/73
[2020-06-02] MEDS: PATCH REMOVAL. MC SCH (21:00)
[2020-06-02 23:00] VITALS: BP 126/72
[2020-06-03 03:00] VITALS: BP 131/81
[2020-06-03] MEDS: MAG HYDROX/ALUMINUM HYD/SIMETH 30 ML ORAL.SUSP PO PRN ×2 (04:56→14:10)
[2020-06-03] MEDS: CEFEPIME HCL IV Push 2 GM VIAL. IVP SCH ×3 (05:17→22:16)
[2020-06-03 07:42] VITALS: BP 127/77
[2020-06-03] MEDS: VARENICLINE 0.5 MG TABLET. PO SCH ×2 (08:51→22:16)
[2020-06-03] MEDS: predniSONE 20 MG TABLET PO SCH (08:52)
[2020-06-03] MEDS: hydroCHLOROthiazide 25 MG TABLET PO SCH (08:52)
[2020-06-03] MEDS: DOXYCYCLINE HYCLATE 100 MG TABLET PO SCH ×2 (08:52→22:16)
[2020-06-03] MEDS: hydrALAZINE 10 MG TABLET PO SCH (08:52)
[2020-06-03] MEDS: LOSARTAN POTASSIUM 50 MG TABLET. PO SCH (08:52)
[2020-06-03] MEDS: LIDOCAINE (700MG/PATCH) PATCH. TD SCH (08:53)
[2020-06-03] MEDS: FLUTICASONE/VILANTEROL 100/25 INHALER. INH SCH (08:54)
[2020-06-03] MEDS: IV NORMAL SALINE 1000ML BAG 1,000 ML IV SCH ×3 (09:36→20:00)
--- NOTE | 2020-06-03 10:00 | PDOC ---
PULMONARY PROGRESS NOTES DATE: 06/03/20 TIME: 09:56 Subjective Pt. is resting on 9 liters N/C Denies SOA or Cough No overnight concerns from nursing Vitals Vital Signs Date Time Temp Pulse Resp B/P (MAP) Pulse Ox O2 Delivery O2 Flow Rate FiO2 06/03/20 08:52 91 127/77 06/03/20 08:01 Nasal Cannula 9.0 06/03/20 07:42 98.2 20 93 98.2 ROS: No Nausea, No Chest Pain, No Abdominal Pain, No Increase Cough General: Alert Lungs: Other (Decreased breath sounds, crackles perihierally) Cardiovascular: S1, S2 Abdomen: Soft, Non-tender Neuro Exam: Alert Extremities: No Edema Skin: Warm, Dry Labs Laboratory Tests Test 06/02/20 08:25 White Blood Count 3.4 x10^3/uL (4.0-11.0) Red Blood Count 4.41 x10^6/uL (3.50-5.40) Hemoglobin 13.8 g/dL (12.0-15.5) Hematocrit 40.7 % (36.0-47.0) Mean Corpuscular Volume 92 fL (79-100) Mean Corpuscular Hemoglobin 31 pg (25-35) Mean Corpuscular Hemoglobin Concent 34 g/dL (31-37) Red Cell Distribution Width 15.6 % (11.5-14.5) Platelet Count 96 x10^3/uL (140-400) Neutrophils (%) (Auto) 75 % (31-73) Lymphocytes (%) (Auto) 17 % (24-48) Monocytes (%) (Auto) 9 % (0-9) Eosinophils (%) (Auto) 0 % (0-3) Basophils (%) (Auto) 0 % (0-3) Neutrophils # (Auto) 2.6 x10^3/uL (1.8-7.7) Lymphocytes # (Auto) 0.6 x10^3/uL (1.0-4.8) Monocytes # (Auto) 0.3 x10^3/uL (0.0-1.1) Eosinophils # (Auto) 0.0 x10^3/uL (0.0-0.7) Basophils # (Auto) 0.0 x10^3/uL (0.0-0.2) Sodium Level 137 mmol/L (136-145) Potassium Level 3.4 mmol/L (3.5-5.1) Chloride Level 100 mmol/L (98-107) Carbon Dioxide Level 25 mmol/L (21-32) Anion Gap 12 (6-14) Blood Urea Nitrogen 15 mg/dL (7-20) Creatinine 0.6 mg/dL (0.6-1.0) Estimated GFR (Cockcroft-Gault) 102.0 Glucose Level 139 mg/dL (70-99) Calcium Level 8.5 mg/dL (8.5-10.1) Total Bilirubin 0.5 mg/dL (0.2-1.0) Direct Bilirubin 0.2 mg/dL (0.0-0.2) Aspartate Amino Transf (AST/SGOT) 116 U/L (15-37) Alanine Aminotransferase (ALT/SGPT) 74 U/L (14-59) Alkaline Phosphatase 41 U/L (46-116) Total Protein 5.9 g/dL (6.4-8.2) Albumin 2.7 g/dL (3.4-5.0) Medications Active Scripts Medications Dose Route/Sig Max Daily Dose Days Date Category Dose Instructions [kadcyla] 1 Ea IV UD 03/12/20 Reported chemotherapy every 3 weeks Chantix (Varenicline Tartrate) 1 Mg Tablet 1 Mg PO BID 10/28/19 Reported Hydrochlorothiazide Tablet (Hydrochlorothiazide) 25 Mg Tablet 12.5 Mg PO DAILY 05/23/19 Reported Hydralazine Hcl 10 Mg Tablet 10 Mg PO DAILY 05/23/19 Reported Ventolin Hfa Inhaler (Albuterol Sulfate) 18 Gm Hfa.aer.ad 2 Puff INH PRN Q4-6HRS PRN 05/23/19 Reported Breo Ellipta 100-25 Mcg Inh (Fluticasone/Vilanterol) 1 Each Aer.pow.ba 2 Puff IH DAILY 05/23/19 Reported Comments CTA chest IMPRESSION: 1. Suboptimal pulmonary arterial opacification. No large central embolus is identified. The segmental and subsegmental pulmonary arteries are less well evaluated. 2. Panlobular emphysema and subpleural honeycombing in the lower lobes with peripheral consolidation, most conspicuous in the lower lobes. Findings may represent interstitial lung disease. Given the relatively rapid development of findings, consider possible drug associated organizing pneumonia in the differential. 3. Slight increase in size of a 2 cm lobulated nodule in the anterior right upper lobe, now measuring 2.4 x 1.2 x 1.3 cm. 4. Partially imaged 2.5 cm stone in the gallbladder neck, and mixed solid and cystic mass in the superior pole of the left kidney, better evaluated on renal mass protocol MRI or CT. 5. Similar heterogeneous enhancement in the right renal cortex, better evaluated on renal mass protocol MRI or CT. Impression . IMPRESSION: 1. Acute on chronic hypoxic respiratory failure secondary to multifactorial etiologies and includes a combination of underlying chronic obstructive pulmonary disease, likely drug-induced acute interstitial lung Pneumonitis and COVID-19 pneumonia. 2. The patient with right breast cancer T2 N1, ER positive, HER-2 positive, on adjuvant therapy with Kadcyla.( likely drug-induced acute interstitial lung Pneumonitis) 3. COVID-19 pneumonia. 4. 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 5. Abnormal liver function tests, could be related to COVID pneumonia. 6. Abnormal D-dimer, which could be secondary to multifactorial etiologies. No central pulmonary emboli. Plan . RECOMMENDATIONS: Continue supplemental oxygen, currently on 9 liters N/C, wear 3 liters N/C at baseline, will wean oxygen as tolerated Follow HEM/ONC recs--recommend to discontinue Kadcyla as it may be associated with acute interstitial lung disease/ Pneumonitis. Continue remdesivir for full course Continue PO prednisone from 06/03 and slow taper over 4 weeks Continue empiric antibiotics repeat ct chest in 6-8 weeks Pt. to follow up in our office with me in 07/2020 PT/OT DVT/GI PPX D/W ANABELLA MCKINNEY MD Jun 03, 2020 10:00
[2020-06-03] MEDS: REMDESIVIR 100mg in NORMAL SALINE 250ML X 4 DAYS IV SCH (11:13)
[2020-06-03 11:16] LABS: CALCIUM 8.7 mg/dL (8.5-10.1); CREATININE 0.6 mg/dL (0.6-1.0); POTASSIUM 3.1 mmol/L (3.5-5.1)
[2020-06-03 11:32] VITALS: BP 140/77
[2020-06-03 11:32] LABS: ALBUMIN 2.7 g/dL (3.4-5.0); DIRECT BILIRUBIN 0.2 mg/dL (0.0-0.2); MAGNESIUM 1.6 mg/dL (1.8-2.4); TOTAL BILIRUBIN 0.5 mg/dL (0.2-1.0); TOTAL PROTEIN 5.9 g/dL (6.4-8.2)
--- NOTE | 2020-06-03 12:39 | NUR ---
KEVIN following for discharge planning. Spoke with RN and reviewed chart. Pt remains on 9l 02 and IV Remdesivir, day 3. Pt not ready for discharge. Pt has home . Pt denied for HH by [facility]. KEVIN spoke with Bertha from [facility], , (fax) and they have agreed to take this patient with a start of care next week pending insurance approval. KEVIN called pt's insurance company and was routed to [employer] ( ). KEVIN was able to get RN/PT/OT approved. Intake approval number for this claim is [id number]. Start of care for initial RN and PT visits is 06/08 and 6 additional visits were approved for each disciple. OT initial visit was set for 06/09 with 6 additional visits approved as well. Bertha with [facility] updated. Spouse updated. Dr. Yousif updated. Discharge plan is home with spouse Tremayne ([phone]) and orders. Spoke with Tremayne who is agreeable to this plan and tested COVID negative. Patient added to possible holiday/weekend list.
--- NOTE | 2020-06-03 12:51 | PDOC ---
PROGRESS NOTES Date of Service: DATE: 06/03/20 TIME: 12:50 Chief Complaint Chief Complaint Investigation for COVID-19 infection Acute generalized weakness secondary to chemotherapy versus COPD exacerbation Fever concerning for Port-A-Cath infection Polycythemia suggestive of chronic tobacco use Thrombocytopenia Acute electrolyte derangement suggestive of volume depletionhyponatremia, hypokalemia, hypochloremia ZACARIAS due to vasomotor nephropathy Mild transaminitis c History of Present Illness History of Present Illness 59 year old female, accompanied by her , who presents to the emergency department with complaints of generalized weakness for the last 7 days. Patient states she had her last chemotherapy treatment for right-sided breast cancer on May [id number]. She states for the last week she is just felt fatigued and weak. She states she is also had a decreased appetite. Patient denies any f ever, cough, increased shortness of breath, chest pain, abdominal pain, nausea, vomiting, diarrhea, headache, or loss of taste/smell. Patient denies any swelling of her lower extremities. She has a history of COPD and states that her breathing is not more labored than usual. She constantly wears 4 L of oxygen via nasal cannula due to her COPD. She states that she stopped smoking approximately 1 week ago. Patient denies any known exposure to COVID-19, she states she has been staying home. 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 The patient currently denies any pain. She reports she had a right mastectomy back in October, she denies any redness at her surgical site. Patient denies any redness, or warmth at her Port-A-Cath site. Patient reports that her oncologist is Dr. Glasgow, she is currently on a chemotherapy treatment that she is not supposed to take any ibuprofen with. 05/31: Patient seen and evaluated bedside. COVID-19 pending. She has a history of COPD and is currently breathing on 6 L oxygen, which is increased from reported 4L at baseline. She is tachycardic and febrile, will obtain D-dimer. Will obtain albuterol inhaler from pharmacy and resume home medications. Continue antibiotic coverage for COPD exacerbation possible community-acquired pneumonia. Discussed with RN. 06/01: Patient seen and evaluated bedside. COVID-19 positive. After discussion of risk respiratory, patient was comfortable initiating remdesivir. Will follow LFTs. Oxygen requirement is increasing currently on 10 L nasal cannula. Febrile, tachycardic, tachypneic. Obtain CTA this morning that was negative for PE. Will consult pulmonology for further recommendations. 06/02: Patient seen and evaluated. Remdesivir day 2/5, will continue to follow LFTs. She is currently breathing on 9 L nasal cannula, and at baseline requiring 4 L. Hematology/oncology with plan to permanently discontinue trastuzumab emtansine given grade 3 interstitial pneumonitis. Discussed with pulmonology, will continue to wean oxygen to patient's baseline, and provide extended steroid taper. Still with complaints of diarrhea. She is C. difficile negative, will add Lomotil as needed. Discussed with RN and director of social services. 06/03, still on 9 liters, cough better, day 3 remdesivier, str better, eating better still on steroids, cont current above reviewed Vitals Vitals Vital Signs Date Time Temp Pulse Resp B/P (MAP) Pulse Ox O2 Delivery O2 Flow Rate FiO2 06/03/20 11:32 97.7 110 20 140/77 (98) 91 Nasal Cannula 9.0 97.7 Physical Exam General: Alert, mild distress, Other Heart: Regular rate, No murmurs, Other Lungs: Other (Decreased breath sounds, crackles perihierally) Abdomen: Normal bowel sounds, Soft Extremities: No cyanosis Skin: No rashes Labs LABS Laboratory Tests Test 06/03/20 09:21 Sodium Level 137 mmol/L (136-145) Potassium Level 3.1 mmol/L (3.5-5.1) Chloride Level 99 mmol/L (98-107) Carbon Dioxide Level 28 mmol/L (21-32) Anion Gap 10 (6-14) Blood Urea Nitrogen 17 mg/dL (7-20) Creatinine 0.6 mg/dL (0.6-1.0) Estimated GFR (Cockcroft-Gault) 102.0 Glucose Level 123 mg/dL (70-99) Calcium Level 8.7 mg/dL (8.5-10.1) Magnesium Level 1.6 mg/dL (1.8-2.4) Total Bilirubin 0.5 mg/dL (0.2-1.0) Direct Bilirubin 0.2 mg/dL (0.0-0.2) Aspartate Amino Transf (AST/SGOT) 114 U/L (15-37) Alanine Aminotransferase (ALT/SGPT) 80 U/L (14-59) Alkaline Phosphatase 46 U/L (46-116) Total Protein 5.9 g/dL (6.4-8.2) Albumin 2.7 g/dL (3.4-5.0) Review of Systems Review of Systems cough, dyspnea, weakness Assessment and Plan Assessmemt and Plan Problems Medical Problems: (1) ZACARIAS (acute kidney injury) Status: Acute (2) Dehydration Status: Acute (3) Fever Status: Acute (4) Hx of breast cancer Status: Acute (5) Hyponatremia Status: Acute (6) Person under investigation for COVID-19 Status: Acute Comment Review of Relevant I have reviewed the following items lobo (where applicable) has been applied. Labs Laboratory Tests Test 06/02/20 08:25 06/03/20 09:21 White Blood Count 3.4 x10^3/uL (4.0-11.0) Red Blood Count 4.41 x10^6/uL (3.50-5.40) Hemoglobin 13.8 g/dL (12.0-15.5) Hematocrit 40.7 % (36.0-47.0) Mean Corpuscular Volume 92 fL (79-100) Mean Corpuscular Hemoglobin 31 pg (25-35) Mean Corpuscular Hemoglobin Concent 34 g/dL (31-37) Red Cell Distribution Width 15.6 % (11.5-14.5) Platelet Count 96 x10^3/uL (140-400) Neutrophils (%) (Auto) 75 % (31-73) Lymphocytes (%) (Auto) 17 % (24-48) Monocytes (%) (Auto) 9 % (0-9) Eosinophils (%) (Auto) 0 % (0-3) Basophils (%) (Auto) 0 % (0-3) Neutrophils # (Auto) 2.6 x10^3/uL (1.8-7.7) Lymphocytes # (Auto) 0.6 x10^3/uL (1.0-4.8) Monocytes # (Auto) 0.3 x10^3/uL (0.0-1.1) Eosinophils # (Auto) 0.0 x10^3/uL (0.0-0.7) Basophils # (Auto) 0.0 x10^3/uL (0.0-0.2) Sodium Level 137 mmol/L (136-145) 137 mmol/L (136-145) Potassium Level 3.4 mmol/L (3.5-5.1) 3.1 mmol/L (3.5-5.1) Chloride Level 100 mmol/L (98-107) 99 mmol/L (98-107) Carbon Dioxide Level 25 mmol/L (21-32) 28 mmol/L (21-32) Anion Gap 12 (6-14) 10 (6-14) Blood Urea Nitrogen 15 mg/dL (7-20) 17 mg/dL (7-20) Creatinine 0.6 mg/dL (0.6-1.0) 0.6 mg/dL (0.6-1.0) Estimated GFR (Cockcroft-Gault) 102.0 102.0 Glucose Level 139 mg/dL (70-99) 123 mg/dL (70-99) Calcium Level 8.5 mg/dL (8.5-10.1) 8.7 mg/dL (8.5-10.1) Total Bilirubin 0.5 mg/dL (0.2-1.0) 0.5 mg/dL (0.2-1.0) Direct Bilirubin 0.2 mg/dL (0.0-0.2) 0.2 mg/dL (0.0-0.2) Aspartate Amino Transf (AST/SGOT) 116 U/L (15-37) 114 U/L (15-37) Alanine Aminotransferase (ALT/SGPT) 74 U/L (14-59) 80 U/L (14-59) Alkaline Phosphatase 41 U/L (46-116) 46 U/L (46-116) Total Protein 5.9 g/dL (6.4-8.2) 5.9 g/dL (6.4-8.2) Albumin 2.7 g/dL (3.4-5.0) 2.7 g/dL (3.4-5.0) Magnesium Level 1.6 mg/dL (1.8-2.4) Laboratory Tests Test 06/03/20 09:21 Sodium Level 137 mmol/L (136-145) Potassium Level 3.1 mmol/L (3.5-5.1) Chloride Level 99 mmol/L (98-107) Carbon Dioxide Level 28 mmol/L (21-32) Anion Gap 10 (6-14) Blood Urea Nitrogen 17 mg/dL (7-20) Creatinine 0.6 mg/dL (0.6-1.0) Estimated GFR (Cockcroft-Gault) 102.0 Glucose Level 123 mg/dL (70-99) Calcium Level 8.7 mg/dL (8.5-10.1) Magnesium Level 1.6 mg/dL (1.8-2.4) Total Bilirubin 0.5 mg/dL (0.2-1.0) Direct Bilirubin 0.2 mg/dL (0.0-0.2) Aspartate Amino Transf (AST/SGOT) 114 U/L (15-37) Alanine Aminotransferase (ALT/SGPT) 80 U/L (14-59) Alkaline Phosphatase 46 U/L (46-116) Total Protein 5.9 g/dL (6.4-8.2) Albumin 2.7 g/dL (3.4-5.0) Medications Current Medications Sodium Chloride 1,000 ml @ 1,000 mls/hr 1X ONCE IV Last administered on 05/30/20at 13:27; Start 05/30/20 at 13:30; Stop 05/30/20 at 14:29; Status DC Acetaminophen (Tylenol) 1,000 mg 1X ONCE PO Last administered on 05/30/20at 14:21; Start 05/30/20 at 13:30; Stop 05/30/20 at 13:31; Status DC Sodium Chloride 1,000 ml @ 125 mls/hr Q8H IV Last administered on 05/31/20at 00:01; Start 05/30/20 at 13:45; Stop 05/31/20 at 13:44; Status DC Cefepime HCl (Maxipime) 1 gm 1X ONCE IVP Last administered on 05/30/20at 16:32; Start 05/30/20 at 15:00; Stop 05/30/20 at 15:01; Status DC Sennosides (Senna) 17.2 mg PRN BID PRN PO CONSTIPATION; Start 05/30/20 at 14:30 Docusate Sodium (Colace) 100 mg PRN DAILY PRN PO HARD STOOLS; Start 05/30/20 at 14:30 Ondansetron HCl (Zofran) 4 mg PRN Q6HRS PRN IVP NAUSEA/VOMITING; Start 05/30/20 at 14:30 Dextrose (Dextrose 50%-Water Syringe) 12.5 gm PRN Q15MIN PRN IV SEE COMMENTS; Start 05/30/20 at 14:30 Enoxaparin Sodium (Lovenox 40mg Syringe) 40 mg Q24H SQ Last administered on 06/02/20at 17:25; Start 05/30/20 at 15:00 Morphine Sulfate (Morphine Sulfate) 2 mg PRN Q2HR PRN IV SEVERE PAIN 7-10 Last administered on 05/30/20at 16:31; Start 05/30/20 at 04:00; Stop 05/31/20 at 03:59; Status DC Prochlorperazine Edisylate (Compazine) 10 mg Q6HRS PRN IV VOMITING 2ND CHOICE; Start 05/30/20 at 14:30 Acetaminophen (Tylenol) 650 mg PRN Q6HRS PRN PO MILD PAIN / TEMP > 100.3'F Last administered on 06/02/20at 05:20; Start 05/31/20 at 00:15 Potassium Chloride (Klor-Con) 40 meq 1X ONCE PO Last administered on 05/31/20at 10:03; Start 05/31/20 at 08:00; Stop 05/31/20 at 08:01; Status DC Non-Formulary Medication (Albuterol Sulfate (Ventolin Hfa Inhaler)) 2 puff PRN Q4-6HRS PRN INH SHORTNESS OF BREATH; Start 05/31/20 at 11:30; Status UNV Sodium Chloride 1,000 ml @ 100 mls/hr Q10H IV Last administered on 06/01/20at 18:00; Start 05/31/20 at 12:00 Albuterol Sulfate (Ventolin Neb Soln) 2.5 mg PRN Q4HRS PRN NEB SHORTNESS OF BREATH; Start 05/31/20 at 12:00; Stop 06/03/20 at 12:04; Status DC Cefepime HCl (Maxipime) 2 gm Q8HRS IVP Last administered on 06/03/20at 05:17; Start 05/31/20 at 13:00 Doxycycline Hyclate (Vibra-Tab) 100 mg BID PO Last administered on 06/03/20 08:52; Start 05/31/20 at 13:00 Albuterol Sulfate (Ventolin Hfa) 1 puff PRN Q4HRS PRN INH SHORTNESS OF BREATH Last administered on 06/02/20at 08:35; Start 05/31/20 at 12:45 Hydralazine HCl (Apresoline) 10 mg DAILY PO Last administered on 06/03/20 08:52; Start 06/01/20 at 09:00 Hydrochlorothiazide (Hydrodiuril) 12.5 mg DAILY PO Last administered on 06/03/20 08:52; Start 06/01/20 at 09:00 Fluticasone/ Vilanterol (Breo Ellipta 100-25 Mcg) 1 puff DAILY INH Last administered on 06/03/20 08:54; Start 05/31/20 at 14:00 Losartan Potassium (Cozaar) 100 mg DAILY PO Last administered on 06/03/20 08:52; Start 06/01/20 at 09:00 Varenicline (Chantix) 1 mg BID PO Last administered on 06/03/20at 08:51; Start 05/31/20 at 21:00 Iohexol (Omnipaque 350 Mg/ml) 80 ml 1X ONCE IV Last administered on 06/01/20at 08:45; Start 06/01/20 at 08:45; Stop 06/01/20 at 08:51; Status DC Info (CONTRAST GIVEN -- Rx MONITORING) 1 each PRN DAILY PRN MC SEE COMMENTS; Start 06/01/20 at 09:00; Stop 06/03/20 at 08:59; Status DC Remdesivir 200 mg/ Sodium Chloride 210 ml @ 210 mls/hr 1X ONCE IV Last administered on 06/01/20at 12:03; Start 06/01/20 at 12:00; Stop 06/01/20 at 12:59; Status DC Remdesivir 100 mg/ Sodium Chloride 230 ml @ 460 mls/hr Q24H IV Last administered on 06/03/20at 11:13; Start 06/02/20 at 12:00; Stop 06/05/20 at 12:29 Dexamethasone (Decadron) 6 mg DAILYWBKFT PO Last administered on 06/02/20at 08:31; Start 06/01/20 at 13:00; Stop 06/02/20 at 20:02; Status DC Lidocaine (Lidoderm) 1 patch DAILY TD ; Start 06/01/20 at 23:15; Status Cancel Miscellaneous (Lidoderm Patch Removal) [facility] ; Start 06/01/20 at 21:00; Status Cancel Lidocaine (Lidoderm) 1 patch DAILY TD Last administered on 06/03/20at 08:53; Start 06/01/20 at 23:30 Miscellaneous (Lidoderm Patch Removal) 1 [facility] ; Start 06/01/20 at 21:00 Potassium Chloride (Klor-Con) 20 meq 1X ONCE PO Last administered on 06/02/20at 10:28; Start 06/02/20 at 09:45; Stop 06/02/20 at 09:46; Status DC Diphenoxylate HCl/ Atropine (Lomotil) 1 tab PRN QID PRN PO DIARRHEA; Start 06/02/20 at 13:00 Prednisone (Prednisone) 40 mg DAILY PO Last administered on 06/03/20at 08:52; Start 06/03/20 at 09:00 Al Hydroxide/Mg Hydroxide (Mylanta Plus Xs) 30 ml PRN Q2HR PRN PO HEARTBURN / GAS Last administered on 06/03/20at 04:56; Start 06/03/20 at 04:45 Active Scripts Active Reported [kadcyla] 1 IV UD chemotherapy every 3 weeks Chantix (Varenicline Tartrate) 1 Mg Tablet 1 Mg PO BID Hydrochlorothiazide Tablet (Hydrochlorothiazide) 25 Mg Tablet 12.5 Mg PO DAILY Hydralazine Hcl 10 Mg Tablet 10 Mg PO DAILY Ventolin Hfa Inhaler (Albuterol Sulfate) 18 Gm Hfa.aer.ad 2 Puff INH PRN Q4-6HRS PRN Breo Ellipta 100-25 Mcg Inh (Fluticasone/Vilanterol) 1 Each Aer.pow.ba 2 Puff IH DAILY Vitals/I & O Vital Sign - Last 24 Hours 06/02/20 06/02/20 06/02/20 06/02/20 15:00 19:00 19:30 23:00 Temp 96.6 97.9 97.8 96.6 97.9 97.8 Pulse 82 94 82 Resp 20 18 17 B/P (MAP) 148/88 (108) 136/73 (94) 126/72 (90) Pulse Ox 92 90 93 O2 Delivery Nasal Cannula Nasal Cannula Nasal Cannula Nasal Cannula O2 Flow Rate 9.0 9.0 9.0 9.0 06/03/20 06/03/20 06/03/20 06/03/20 03:00 07:42 08:01 08:52 Temp 98.1 98.2 98.1 98.2 Pulse 90 91 91 Resp 18 20 B/P (MAP) 131/81 (98) 127/77 (94) 127/77 Pulse Ox 91 93 O2 Delivery Nasal Cannula Nasal Cannula Nasal Cannula O2 Flow Rate 9.0 9.0 9.0 06/03/20 06/03/20 08:52 11:32 Temp 97.7 97.7 Pulse 91 110 Resp 20 B/P (MAP) 127/77 140/77 (98) Pulse Ox 91 O2 Delivery Nasal Cannula O2 Flow Rate 9.0 Intake and Output 06/02/20 06/02/20 06/03/20 15:00 23:00 07:00 Intake Total 300 ml 100 ml Balance 300 ml 100 ml Justicifation of Admission Dx: Justifications for Admission: Justification of Admission Dx: Yes (COVID hypoixia) VAMSI WALSH MD Jun 03, 2020 12:51
[2020-06-03] MEDS: ENOXAPARIN 40 MG/0.4 ML SYRINGE. SQ SCH (14:12)
[2020-06-03 15:00] VITALS: BP 136/83
[2020-06-03] MEDS: PANTOPRAZOLE 40 MG TABLET.DR. PO SCH (17:22)
[2020-06-03 19:00] VITALS: BP 121/83
[2020-06-03] MEDS: PATCH REMOVAL. MC SCH (21:00)
[2020-06-03 22:54] VITALS: BP 135/81
[2020-06-04 02:55] VITALS: BP 131/57
[2020-06-04] MEDS: IV NORMAL SALINE 1000ML BAG 1,000 ML IV SCH ×2 (03:02→16:00)
[2020-06-04] MEDS: CEFEPIME HCL IV Push 2 GM VIAL. IVP SCH ×3 (05:27→20:08)
[2020-06-04 06:02] LABS: CALCIUM 8.2 mg/dL (8.5-10.1); CREATININE 0.8 mg/dL (0.6-1.0); GFR 73.2; POTASSIUM 3.2 mmol/L (3.5-5.1)
[2020-06-04 06:08] LABS: ALBUMIN 2.5 g/dL (3.4-5.0); DIRECT BILIRUBIN 0.2 mg/dL (0.0-0.2); TOTAL BILIRUBIN 0.6 mg/dL (0.2-1.0); TOTAL PROTEIN 5.4 g/dL (6.4-8.2)
[2020-06-04 07:59] VITALS: BP 129/78
--- NOTE | 2020-06-04 08:18 | PDOC ---
PULMONARY PROGRESS NOTES DATE: 06/04/20 TIME: 08:17 Subjective Pt. is resting on 9 liters N/C Denies SOA or Cough No overnight concerns from nursing Vitals Vital Signs Date Time Temp Pulse Resp B/P (MAP) Pulse Ox O2 Delivery O2 Flow Rate FiO2 06/04/20 07:59 98.5 81 24 129/78 (95) 91 Nasal Cannula 9.0 98.5 ROS: No Nausea, No Chest Pain, No Abdominal Pain, No Increase Cough General: Alert Lungs: Other (Decreased breath sounds, crackles perihierally) Cardiovascular: S1, S2 Abdomen: Soft, Non-tender Neuro Exam: Alert Extremities: No Edema Skin: Warm, Dry Labs Laboratory Tests Test 06/02/20 08:25 06/03/20 09:21 06/04/20 04:30 White Blood Count 3.4 x10^3/uL (4.0-11.0) Red Blood Count 4.41 x10^6/uL (3.50-5.40) Hemoglobin 13.8 g/dL (12.0-15.5) Hematocrit 40.7 % (36.0-47.0) Mean Corpuscular Volume 92 fL (79-100) Mean Corpuscular Hemoglobin 31 pg (25-35) Mean Corpuscular Hemoglobin Concent 34 g/dL (31-37) Red Cell Distribution Width 15.6 % (11.5-14.5) Platelet Count 96 x10^3/uL (140-400) Neutrophils (%) (Auto) 75 % (31-73) Lymphocytes (%) (Auto) 17 % (24-48) Monocytes (%) (Auto) 9 % (0-9) Eosinophils (%) (Auto) 0 % (0-3) Basophils (%) (Auto) 0 % (0-3) Neutrophils # (Auto) 2.6 x10^3/uL (1.8-7.7) Lymphocytes # (Auto) 0.6 x10^3/uL (1.0-4.8) Monocytes # (Auto) 0.3 x10^3/uL (0.0-1.1) Eosinophils # (Auto) 0.0 x10^3/uL (0.0-0.7) Basophils # (Auto) 0.0 x10^3/uL (0.0-0.2) Sodium Level 137 mmol/L (136-145) 137 mmol/L (136-145) 137 mmol/L (136-145) Potassium Level 3.4 mmol/L (3.5-5.1) 3.1 mmol/L (3.5-5.1) 3.2 mmol/L (3.5-5.1) Chloride Level 100 mmol/L (98-107) 99 mmol/L (98-107) 100 mmol/L (98-107) Carbon Dioxide Level 25 mmol/L (21-32) 28 mmol/L (21-32) 29 mmol/L (21-32) Anion Gap 12 (6-14) 10 (6-14) 8 (6-14) Blood Urea Nitrogen 15 mg/dL (7-20) 17 mg/dL (7-20) 18 mg/dL (7-20) Creatinine 0.6 mg/dL (0.6-1.0) 0.6 mg/dL (0.6-1.0) 0.8 mg/dL (0.6-1.0) Estimated GFR (Cockcroft-Gault) 102.0 102.0 73.2 Glucose Level 139 mg/dL (70-99) 123 mg/dL (70-99) 126 mg/dL (70-99) Calcium Level 8.5 mg/dL (8.5-10.1) 8.7 mg/dL (8.5-10.1) 8.2 mg/dL (8.5-10.1) Total Bilirubin 0.5 mg/dL (0.2-1.0) 0.5 mg/dL (0.2-1.0) 0.6 mg/dL (0.2-1.0) Direct Bilirubin 0.2 mg/dL (0.0-0.2) 0.2 mg/dL (0.0-0.2) 0.2 mg/dL (0.0-0.2) Aspartate Amino Transf (AST/SGOT) 116 U/L (15-37) 114 U/L (15-37) 86 U/L (15-37) Alanine Aminotransferase (ALT/SGPT) 74 U/L (14-59) 80 U/L (14-59) 67 U/L (14-59) Alkaline Phosphatase 41 U/L (46-116) 46 U/L (46-116) 39 U/L (46-116) Total Protein 5.9 g/dL (6.4-8.2) 5.9 g/dL (6.4-8.2) 5.4 g/dL (6.4-8.2) Albumin 2.7 g/dL (3.4-5.0) 2.7 g/dL (3.4-5.0) 2.5 g/dL (3.4-5.0) Magnesium Level 1.6 mg/dL (1.8-2.4) Laboratory Tests Test 06/03/20 09:21 06/04/20 04:30 Sodium Level 137 mmol/L (136-145) 137 mmol/L (136-145) Potassium Level 3.1 mmol/L (3.5-5.1) 3.2 mmol/L (3.5-5.1) Chloride Level 99 mmol/L (98-107) 100 mmol/L (98-107) Carbon Dioxide Level 28 mmol/L (21-32) 29 mmol/L (21-32) Anion Gap 10 (6-14) 8 (6-14) Blood Urea Nitrogen 17 mg/dL (7-20) 18 mg/dL (7-20) Creatinine 0.6 mg/dL (0.6-1.0) 0.8 mg/dL (0.6-1.0) Estimated GFR (Cockcroft-Gault) 102.0 73.2 Glucose Level 123 mg/dL (70-99) 126 mg/dL (70-99) Calcium Level 8.7 mg/dL (8.5-10.1) 8.2 mg/dL (8.5-10.1) Magnesium Level 1.6 mg/dL (1.8-2.4) Total Bilirubin 0.5 mg/dL (0.2-1.0) 0.6 mg/dL (0.2-1.0) Direct Bilirubin 0.2 mg/dL (0.0-0.2) 0.2 mg/dL (0.0-0.2) Aspartate Amino Transf (AST/SGOT) 114 U/L (15-37) 86 U/L (15-37) Alanine Aminotransferase (ALT/SGPT) 80 U/L (14-59) 67 U/L (14-59) Alkaline Phosphatase 46 U/L (46-116) 39 U/L (46-116) Total Protein 5.9 g/dL (6.4-8.2) 5.4 g/dL (6.4-8.2) Albumin 2.7 g/dL (3.4-5.0) 2.5 g/dL (3.4-5.0) Medications Active Scripts Medications Dose Route/Sig Max Daily Dose Days Date Category Dose Instructions [kadcyla] 1 Ea IV UD 03/12/20 Reported chemotherapy every 3 weeks Chantix (Varenicline Tartrate) 1 Mg Tablet 1 Mg PO BID 10/28/19 Reported Hydrochlorothiazide Tablet (Hydrochlorothiazide) 25 Mg Tablet 12.5 Mg PO DAILY 05/23/19 Reported Hydralazine Hcl 10 Mg Tablet 10 Mg PO DAILY 05/23/19 Reported Ventolin Hfa Inhaler (Albuterol Sulfate) 18 Gm Hfa.aer.ad 2 Puff INH PRN Q4-6HRS PRN 05/23/19 Reported Breo Ellipta 100-25 Mcg Inh (Fluticasone/Vilanterol) 1 Each Aer.pow.ba 2 Puff IH DAILY 05/23/19 Reported Comments CTA chest IMPRESSION: 1. Suboptimal pulmonary arterial opacification. No large central embolus is identified. The segmental and subsegmental pulmonary arteries are less well evaluated. 2. Panlobular emphysema and subpleural honeycombing in the lower lobes with peripheral consolidation, most conspicuous in the lower lobes. Findings may represent interstitial lung disease. Given the relatively rapid development of findings, consider possible drug associated organizing pneumonia in the differential. 3. Slight increase in size of a 2 cm lobulated nodule in the anterior right upper lobe, now measuring 2.4 x 1.2 x 1.3 cm. 4. Partially imaged 2.5 cm stone in the gallbladder neck, and mixed solid and cystic mass in the superior pole of the left kidney, better evaluated on renal mass protocol MRI or CT. 5. Similar heterogeneous enhancement in the right renal cortex, better evaluated on renal mass protocol MRI or CT. Impression . IMPRESSION: 1. Acute on chronic hypoxic respiratory failure secondary to multifactorial etiologies and includes a combination of underlying chronic obstructive pulmonary disease, likely drug-induced acute interstitial lung Pneumonitis and COVID-19 pneumonia. 2. The patient with right breast cancer T2 N1, ER positive, HER-2 positive, on adjuvant therapy with Kadcyla.( likely drug-induced acute interstitial lung Pneumonitis) 3. COVID-19 pneumonia. 4. 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 5. Abnormal liver function tests, could be related to COVID pneumonia. 6. Abnormal D-dimer, which could be secondary to multifactorial etiologies. No central pulmonary emboli. Plan . RECOMMENDATIONS: Continue supplemental oxygen, currently on 9 liters N/C, wear 3 liters N/C at baseline, will wean oxygen as tolerated Follow HEM/ONC recs--recommend to discontinue Kadcyla as it may be associated with acute interstitial lung disease/ Pneumonitis. Continue remdesivir for full course Continue PO prednisone from 06/03 and slow taper over 4 weeks Continue empiric antibiotics repeat ct chest in 6-8 weeks Pt. to follow up in our office with me in 07/[address] chest prior likely dc home once down to 6 litres PT/OT DVT/GI PPX D/W ANABELLA MCKINNEY MD Jun 04, 2020 08:18
[2020-06-04] MEDS: PANTOPRAZOLE 40 MG TABLET.DR. PO SCH (08:45)
[2020-06-04] MEDS: VARENICLINE 0.5 MG TABLET. PO SCH ×2 (08:46→20:08)
[2020-06-04] MEDS: ALBUTEROL SULFATE 8GM INHALER. INH PRN (08:46)
[2020-06-04] MEDS: FLUTICASONE/VILANTEROL 100/25 INHALER. INH SCH (08:46)
[2020-06-04] MEDS: predniSONE 20 MG TABLET PO SCH (08:47)
[2020-06-04] MEDS: hydrALAZINE 10 MG TABLET PO SCH (08:47)
[2020-06-04] MEDS: LOSARTAN POTASSIUM 50 MG TABLET. PO SCH (08:50)
[2020-06-04] MEDS: hydroCHLOROthiazide 25 MG TABLET PO SCH (08:50)
[2020-06-04] MEDS: DOXYCYCLINE HYCLATE 100 MG TABLET PO SCH ×2 (08:50→20:08)
[2020-06-04] MEDS: LIDOCAINE (700MG/PATCH) PATCH. TD SCH (08:51)
[2020-06-04 11:59] VITALS: BP 128/79
[2020-06-04] MEDS: REMDESIVIR 100mg in NORMAL SALINE 250ML X 4 DAYS IV SCH (12:17)
--- NOTE | 2020-06-04 13:45 | PDOC ---
[facility] PROGRESS NOTE Date of Service DOS: DATE: 06/04/20 TIME: 13:43 Chief Complaint Chief Complaint COVID-19 infection Acute generalized weakness secondary to chemotherapy versus COPD exacerbation Fever concerning for Port-A-Cath infection Polycythemia suggestive of chronic tobacco use Thrombocytopenia Acute electrolyte derangement suggestive of volume depletionhyponatremia, hypokalemia, hypochloremia ZACARIAS due to vasomotor nephropathy Mild transaminitis Concern for trastuzumab pneumonitis versus interstitial lung disease History of Present Illness History of Present Illness 59 year old female, accompanied by her , who presents to the emergency department with complaints of generalized weakness for the last 7 days. Patient states she had her last chemotherapy treatment for right-sided breast cancer on May 212019. She states for the last week she is just felt fatigued and weak. She states she is also had a decreased appetite. Patient denies any fever, cough, increased shortness of breath, chest pain, abdominal pain, nausea, vomiting, diarrhea, headache, or loss of taste/smell. Patient denies any swelling of her lower extremities. She has a history of COPD and states that her breathing is not more labored than usual. She constantly wears 4 L of oxy gen via nasal cannula due to her COPD. She states that she stopped smoking approximately 1 week ago. Patient denies any known exposure to COVID-19, she states she has been staying home. 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 The patient currently denies any pain. She reports she had a right mastectomy back in October, she denies any redness at her surgical site. Patient denies any redness, or warmth at her Port-A-Cath site. Patient reports that her oncologist is Dr. Glasgow, she is currently on a chemotherapy treatment that she is not supposed to take any ibuprofen with. 05/31: Patient seen and evaluated bedside. COVID-19 pending. She has a history of COPD and is currently breathing on 6 L oxygen, which is increased from reported 4L at baseline. She is tachycardic and febrile, will obtain D-dimer. Will obtain albuterol inhaler from pharmacy and resume home medications. Continue antibiotic coverage for COPD exacerbation possible community-acquired pneumonia. Discussed with RN. 06/01: Patient seen and evaluated bedside. COVID-19 positive. After discussion of risk respiratory, patient was comfortable initiating remdesivir. Will follow LFTs. Oxygen requirement is increasing currently on 10 L nasal cannula. Febrile, tachycardic, tachypneic. Obtain CTA this morning that was negative for PE. Will consult pulmonology for further recommendations. 06/02: Patient seen and evaluated. Remdesivir day 2/5, will continue to follow LFTs. She is currently breathing on 9 L nasal cannula, and at baseline requiring 4 L. Hematology/oncology with plan to permanently discontinue trastuzumab emtansine given grade 3 interstitial pneumonitis. Discussed with pulmonology, will continue to wean oxygen to patient's baseline, and provide extended steroid taper. Still with complaints of diarrhea. She is C. difficile negative, will add Lomotil as needed. Discussed with RN and administrator social welfare. 06/03, still on 9 liters, cough better, day 3 remdesivier, str better, eating better still on steroids, cont current above reviewed 06/04/2020 No acute events overnight. Patient continues to saturate 91% on 9 L nasal cannula. Dyspnea upon exertion. Day 4 Remdesivir. Patient's chart, labs, images were reviewed and discussed with RN Vitals/I&O Vitals/I&O: Vital Signs Date Time Temp Pulse Resp B/P (MAP) Pulse Ox O2 Delivery O2 Flow Rate FiO2 06/04/20 11:59 97.5 90 22 128/79 (95) 92 Nasal Cannula 9.0 97.5 I & O 06/03/20 06/03/20 06/04/20 15:00 23:00 07:00 Intake Total 430 ml Output Total 4 ml 0 ml Balance 426 ml 0 ml Physical Exam General: Alert, mild distress, Other Heart: Regular rate, No murmurs, Other Lungs: Other (Decreased breath sounds, crackles perihierally) Abdomen: Normal bowel sounds, Soft Extremities: No cyanosis Skin: No rashes Labs Labs: Laboratory Tests Test 06/04/20 04:30 Sodium Level 137 mmol/L (136-145) Potassium Level 3.2 mmol/L (3.5-5.1) Chloride Level 100 mmol/L (98-107) Carbon Dioxide Level 29 mmol/L (21-32) Anion Gap 8 (6-14) Blood Urea Nitrogen 18 mg/dL (7-20) Creatinine 0.8 mg/dL (0.6-1.0) Estimated GFR (Cockcroft-Gault) 73.2 Glucose Level 126 mg/dL (70-99) Calcium Level 8.2 mg/dL (8.5-10.1) Total Bilirubin 0.6 mg/dL (0.2-1.0) Direct Bilirubin 0.2 mg/dL (0.0-0.2) Aspartate Amino Transf (AST/SGOT) 86 U/L (15-37) Alanine Aminotransferase (ALT/SGPT) 67 U/L (14-59) Alkaline Phosphatase 39 U/L (46-116) Total Protein 5.4 g/dL (6.4-8.2) Albumin 2.5 g/dL (3.4-5.0) Assessment and Plan Assessmemt and Plan Problems Medical Problems: (1) ZACARIAS (acute kidney injury) Status: Acute (2) Dehydration Status: Acute (3) Fever Status: Acute (4) Hx of breast cancer Status: Acute (5) Hyponatremia Status: Acute (6) Person under investigation for COVID-19 Status: Acute Comment Review of Relevant I have reviewed the following items lobo (where applicable) has been applied. Medications: Current Medications Medications (Trade) Dose Ordered Sig/Micaela Route PRN Reason Start Time Stop Time Status Last Admin Dose Admin Pantoprazole Sodium (Protonix) 40 mg DAILYAC PO 06/03/20 17:30 06/04/20 08:45 Justifications for Admission Other Justification generalized weakness JAKUB UGARTE MD Jun 04, 2020 13:45
[2020-06-04] MEDS: ENOXAPARIN 40 MG/0.4 ML SYRINGE. SQ SCH (14:40)
[2020-06-04 15:59] VITALS: BP 144/93
[2020-06-04 19:00] VITALS: BP 132/70
[2020-06-04] MEDS: PATCH REMOVAL. MC SCH (20:08)
[2020-06-04 22:52] VITALS: BP 138/80
[2020-06-05] MEDS: IV NORMAL SALINE 1000ML BAG 1,000 ML IV SCH (02:00)
[2020-06-05 03:00] VITALS: BP 121/69
[2020-06-05] MEDS: CEFEPIME HCL IV Push 2 GM VIAL. IVP SCH ×3 (05:06→20:03)
[2020-06-05 05:27] LABS: CALCIUM 8.8 mg/dL (8.5-10.1); CREATININE 0.7 mg/dL (0.6-1.0); GFR 85.4; POTASSIUM 3.1 mmol/L (3.5-5.1)
[2020-06-05 05:35] LABS: ALBUMIN 2.6 g/dL (3.4-5.0); DIRECT BILIRUBIN 0.2 mg/dL (0.0-0.2); TOTAL BILIRUBIN 0.6 mg/dL (0.2-1.0); TOTAL PROTEIN 5.7 g/dL (6.4-8.2)
[2020-06-05 07:00] VITALS: BP 137/81
[2020-06-05] MEDS: FLUTICASONE/VILANTEROL 100/25 INHALER. INH SCH (08:42)
[2020-06-05] MEDS: LIDOCAINE (700MG/PATCH) PATCH. TD SCH (08:42)
[2020-06-05] MEDS: LOSARTAN POTASSIUM 50 MG TABLET. PO SCH (08:42)
[2020-06-05] MEDS: PANTOPRAZOLE 40 MG TABLET.DR. PO SCH (08:42)
[2020-06-05] MEDS: hydrALAZINE 10 MG TABLET PO SCH (08:43)
[2020-06-05] MEDS: predniSONE 20 MG TABLET PO SCH (08:43)
[2020-06-05] MEDS: VARENICLINE 0.5 MG TABLET. PO SCH ×2 (08:43→20:03)
[2020-06-05] MEDS: DOXYCYCLINE HYCLATE 100 MG TABLET PO SCH ×2 (08:43→20:03)
[2020-06-05] MEDS: hydroCHLOROthiazide 25 MG TABLET PO SCH (08:44)
[2020-06-05] MEDS ORDERED: POTASSIUM CHLORIDE 20 MEQ TABLET.ER. PO ONE ×2 (09:30→12:30)
--- NOTE | 2020-06-05 10:15 | PDOC ---
[facility] [facility] PROGRESS NOTE Date of Service DOS: DATE: 06/05/20 TIME: 10:11 Chief Complaint Chief Complaint COVID-19 infection Acute generalized weakness secondary to chemotherapy versus COPD exacerbation Fever concerning for Port-A-Cath infection Polycythemia suggestive of chronic tobacco use Thrombocytopenia Acute electrolyte derangement suggestive of volume depletionhyponatremia, hypokalemia, hypochloremia ZACARIAS due to vasomotor nephropathy Mild transaminitis Concern for trastuzumab pneumonitis versus interstitial lung disease Hypokalemia IV and p.o. potassium replacement History of Present Illness History of Present Illness 59 year old female, accompanied by her , who presents to the emergency department with complaints of generalized weakness for the last 7 days. Patient states she had her last chemotherapy treatment for right-sided breast cancer on May 212019. She states for the last week she is just felt fatigued and weak. She states she is also had a decreased appetite. Patient denies any fever, cough, increased shortness of breath, chest pain, abdominal pain, nausea, vomiting, diarrhea, headache, or loss of taste/smell. Patient denies any swelling of her lower extremities. She has a history of COPD and states that her breathing is not more labored than usual. She constantly wears 4 L of oxygen via nasal cannula due to her COPD. She states that she stopped smoking approximately 1 week ago. Patient denies any known exposure to COVID-19, she states she has been staying home. 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 The patient currently denies any pain. She reports she had a right mastectomy back in October, she denies any redness at her surgical site. Patient denies any redness, or warmth at her Port-A-Cath site. Patient reports that her oncologist is Dr. Glasgow, she is currently on a chemotherapy treatment that she is not supposed to take any ibuprofen with. 05/31: Patient seen and evaluated bedside. COVID-19 pending. She has a history of COPD and is currently breathing on 6 L oxygen, which is increased from reported 4L at baseline. She is tachycardic and febrile, will obtain D-dimer. Will obtain albuterol inhaler from pharmacy and resume home medications. Continue antibiotic coverage for COPD exacerbation possible community-acquired pneumonia. Discussed with RN. 06/01: Patient seen and evaluated bedside. COVID-19 positive. After discussion of risk respiratory, patient was comfortable initiating remdesivir. Will follow LFTs. Oxygen requirement is increasing currently on 10 L nasal cannula. Febrile, tachycardic, tachypneic. Obtain CTA this morning that was negative for PE. Will consult pulmonology for further recommendations. 06/02: Patient seen and evaluated. Remdesivir day 2/5, will continue to follow LFTs. She is currently breathing on 9 L nasal cannula, and at baseline requiring 4 L. Hematology/oncology with plan to permanently discontinue trastuzumab emtansine given grade 3 interstitial pneumonitis. Discussed with pulmonology, will continue to wean oxygen to patient's baseline, and provide extended steroid taper. Still with complaints of diarrhea. She is C. difficile negative, will add Lomotil as needed. Discussed with RN and social services designee. 06/03, still on 9 liters, cough better, day 3 remdesivier, str better, eating better still on steroids, cont current above reviewed 06/04/2020 No acute events overnight. Patient continues to saturate 91% on 9 L nasal cannula. Dyspnea upon exertion. Day 4 Remdesivir. Patient's chart, labs, images were reviewed and discussed with RN 06/05/2020 No acute events overnight. Patient saturating 93% on 9 L nasal cannula. Still complains of dyspnea upon exertion. Patient will finish up her last dose of remdesivir. Potassium at 3.1 today. Vitals/I&O Vitals/I&O: Vital Signs Date Time Temp Pulse Resp B/P (MAP) Pulse Ox O2 Delivery O2 Flow Rate FiO2 06/05/20 08:43 82 121/69 06/05/20 07:00 97.5 20 94 Nasal Cannula 9.0 97.5 I & O 06/04/20 06/04/20 06/05/20 15:00 23:00 07:00 Intake Total 120 ml 120 ml Output Total 200 ml Balance -80 ml 120 ml Physical Exam General: Alert, mild distress, Other Heart: Regular rate, No murmurs, Other Lungs: Other (Decreased breath sounds, crackles perihierally) Abdomen: Normal bowel sounds, Soft Extremities: No cyanosis Skin: No rashes Labs Labs: Laboratory Tests Test 06/05/20 04:30 Sodium Level 138 mmol/L (136-145) Potassium Level 3.1 mmol/L (3.5-5.1) Chloride Level 100 mmol/L (98-107) Carbon Dioxide Level 29 mmol/L (21-32) Anion Gap 9 (6-14) Blood Urea Nitrogen 19 mg/dL (7-20) Creatinine 0.7 mg/dL (0.6-1.0) Estimated GFR (Cockcroft-Gault) 85.4 Glucose Level 114 mg/dL (70-99) Calcium Level 8.8 mg/dL (8.5-10.1) Magnesium Level 1.9 mg/dL (1.8-2.4) Total Bilirubin 0.6 mg/dL (0.2-1.0) Direct Bilirubin 0.2 mg/dL (0.0-0.2) Aspartate Amino Transf (AST/SGOT) 82 U/L (15-37) Alanine Aminotransferase (ALT/SGPT) 81 U/L (14-59) Alkaline Phosphatase 61 U/L (46-116) Total Protein 5.7 g/dL (6.4-8.2) Albumin 2.6 g/dL (3.4-5.0) Assessment and Plan Assessmemt and Plan Problems Medical Problems: (1) ZACARIAS (acute kidney injury) Status: Acute (2) Dehydration Status: Acute (3) Fever Status: Acute (4) Hx of breast cancer Status: Acute (5) Hyponatremia Status: Acute (6) Person under investigation for COVID-19 Status: Acute Comment Review of Relevant I have reviewed the following items lobo (where applicable) has been applied. Medications: Current Medications Medications (Trade) Dose Ordered Sig/Micaela Route PRN Reason Start Time Stop Time Status Last Admin Dose Admin Potassium Chloride (Klor-Con) 40 meq 1X ONCE PO 06/05/20 09:30 06/05/20 09:31 DC 06/05/20 09:33 Justifications for Admission Other Justification generalized weakness JAKUB UGARTE MD Jun 05, 2020 10:15
--- NOTE | 2020-06-05 10:15 | PDOC ---
PULMONARY PROGRESS NOTES DATE: 06/05/20 TIME: 10:14 Subjective Pt. is resting on 9 liters N/C Denies SOA or Cough No overnight concerns from nursing Vitals Vital Signs Date Time Temp Pulse Resp B/P (MAP) Pulse Ox O2 Delivery O2 Flow Rate FiO2 06/05/20 08:43 82 121/69 06/05/20 07:00 97.5 20 94 Nasal Cannula 9.0 97.5 ROS: No Nausea, No Chest Pain, No Abdominal Pain, No Increase Cough General: Alert Lungs: Other (Decreased breath sounds, crackles perihierally) Cardiovascular: S1, S2 Abdomen: Soft, Non-tender Neuro Exam: Alert Extremities: No Edema Skin: Warm, Dry Labs Laboratory Tests Test 06/04/20 04:30 06/05/20 04:30 Sodium Level 137 mmol/L (136-145) 138 mmol/L (136-145) Potassium Level 3.2 mmol/L (3.5-5.1) 3.1 mmol/L (3.5-5.1) Chloride Level 100 mmol/L (98-107) 100 mmol/L (98-107) Carbon Dioxide Level 29 mmol/L (21-32) 29 mmol/L (21-32) Anion Gap 8 (6-14) 9 (6-14) Blood Urea Nitrogen 18 mg/dL (7-20) 19 mg/dL (7-20) Creatinine 0.8 mg/dL (0.6-1.0) 0.7 mg/dL (0.6-1.0) Estimated GFR (Cockcroft-Gault) 73.2 85.4 Glucose Level 126 mg/dL (70-99) 114 mg/dL (70-99) Calcium Level 8.2 mg/dL (8.5-10.1) 8.8 mg/dL (8.5-10.1) Total Bilirubin 0.6 mg/dL (0.2-1.0) 0.6 mg/dL (0.2-1.0) Direct Bilirubin 0.2 mg/dL (0.0-0.2) 0.2 mg/dL (0.0-0.2) Aspartate Amino Transf (AST/SGOT) 86 U/L (15-37) 82 U/L (15-37) Alanine Aminotransferase (ALT/SGPT) 67 U/L (14-59) 81 U/L (14-59) Alkaline Phosphatase 39 U/L (46-116) 61 U/L (46-116) Total Protein 5.4 g/dL (6.4-8.2) 5.7 g/dL (6.4-8.2) Albumin 2.5 g/dL (3.4-5.0) 2.6 g/dL (3.4-5.0) Magnesium Level 1.9 mg/dL (1.8-2.4) Laboratory Tests Test 06/05/20 04:30 Sodium Level 138 mmol/L (136-145) Potassium Level 3.1 mmol/L (3.5-5.1) Chloride Level 100 mmol/L (98-107) Carbon Dioxide Level 29 mmol/L (21-32) Anion Gap 9 (6-14) Blood Urea Nitrogen 19 mg/dL (7-20) Creatinine 0.7 mg/dL (0.6-1.0) Estimated GFR (Cockcroft-Gault) 85.4 Glucose Level 114 mg/dL (70-99) Calcium Level 8.8 mg/dL (8.5-10.1) Magnesium Level 1.9 mg/dL (1.8-2.4) Total Bilirubin 0.6 mg/dL (0.2-1.0) Direct Bilirubin 0.2 mg/dL (0.0-0.2) Aspartate Amino Transf (AST/SGOT) 82 U/L (15-37) Alanine Aminotransferase (ALT/SGPT) 81 U/L (14-59) Alkaline Phosphatase 61 U/L (46-116) Total Protein 5.7 g/dL (6.4-8.2) Albumin 2.6 g/dL (3.4-5.0) Medications Active Scripts Medications Dose Route/Sig Max Daily Dose Days Date Category Dose Instructions [kadcyla] 1 Ea IV UD 03/12/20 Reported chemotherapy every 3 weeks Chantix (Varenicline Tartrate) 1 Mg Tablet 1 Mg PO BID 10/28/19 Reported Hydrochlorothiazide Tablet (Hydrochlorothiazide) 25 Mg Tablet 12.5 Mg PO DAILY 05/23/19 Reported Hydralazine Hcl 10 Mg Tablet 10 Mg PO DAILY 05/23/19 Reported Ventolin Hfa Inhaler (Albuterol Sulfate) 18 Gm Hfa.aer.ad 2 Puff INH PRN Q4-6HRS PRN 05/23/19 Reported Breo Ellipta 100-25 Mcg Inh (Fluticasone/Vilanterol) 1 Each Aer.pow.ba 2 Puff IH DAILY 05/23/19 Reported Comments CTA chest IMPRESSION: 1. Suboptimal pulmonary arterial opacification. No large central embolus is identified. The segmental and subsegmental pulmonary arteries are less well evaluated. 2. Panlobular emphysema and subpleural honeycombing in the lower lobes with pe ripheral consolidation, most conspicuous in the lower lobes. Findings may represent interstitial lung disease. Given the relatively rapid development of findings, consider possible drug associated organizing pneumonia in the differential. 3. Slight increase in size of a 2 cm lobulated nodule in the anterior right upper lobe, now measuring 2.4 x 1.2 x 1.3 cm. 4. Partially imaged 2.5 cm stone in the gallbladder neck, and mixed solid and cystic mass in the superior pole of the left kidney, better evaluated on renal mass protocol MRI or CT. 5. Similar heterogeneous enhancement in the right renal cortex, better evaluated on renal mass protocol MRI or CT. Impression . IMPRESSION: 1. Acute on chronic hypoxic respiratory failure secondary to multifactorial etiologies and includes a combination of underlying chronic obstructive pulmonary disease, likely drug-induced acute interstitial lung Pneumonitis (Kadcyla) and COVID-19 pneumonia. 2. The patient with right breast cancer T2 N1, ER positive, HER-2 positive, on adjuvant therapy with Kadcyla.( likely drug-induced acute interstitial lung Pneumonitis) 3. COVID-19 pneumonia. 4. 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 5. Abnormal liver function tests, could be related to COVID pneumonia. 6. Abnormal D-dimer, which could be secondary to multifactorial etiologies. No central pulmonary emboli. Plan . RECOMMENDATIONS: Continue supplemental oxygen, currently on 9 liters N/C, wear 3 liters N/C at baseline, will wean oxygen as tolerated Follow HEM/ONC recs--recommend to discontinue Kadcyla as it may be associated with acute interstitial lung disease/ Pneumonitis. Continue remdesivir for full course Continue PO prednisone from 06/03 and slow taper over 4 weeks Continue empiric antibiotics repeat ct chest in 6-8 weeks Pt. to follow up in our office with me in 07/[address] chest prior likely dc home once down to 6 litres PT/OT DVT/GI PPX D/W RN ANABELLA TODD MD Jun 05, 2020 10:15
[2020-06-05 11:22] VITALS: BP 146/81
[2020-06-05] MEDS: REMDESIVIR 100mg in NORMAL SALINE 250ML X 4 DAYS IV SCH (12:00)
[2020-06-05 15:00] VITALS: BP 118/63
[2020-06-05] MEDS: ENOXAPARIN 40 MG/0.4 ML SYRINGE. SQ SCH (15:14)
[2020-06-05] MEDS: PATCH REMOVAL. MC SCH (20:04)
[2020-06-05 20:22] VITALS: BP 144/84
[2020-06-05 23:18] VITALS: BP 135/76
[2020-06-06 03:25] VITALS: BP 115/68
[2020-06-06] MEDS: CEFEPIME HCL IV Push 2 GM VIAL. IVP SCH ×3 (05:16→20:38)
[2020-06-06 05:20] LABS: ALBUMIN 2.7 g/dL (3.4-5.0); DIRECT BILIRUBIN 0.3 mg/dL (0.0-0.2); TOTAL BILIRUBIN 0.6 mg/dL (0.2-1.0); TOTAL PROTEIN 6.3 g/dL (6.4-8.2)
[2020-06-06 07:00] VITALS: BP 140/83
[2020-06-06 08:02] LABS: CALCIUM 9.2 mg/dL (8.5-10.1); CREATININE 0.6 mg/dL (0.6-1.0); POTASSIUM 4.3 mmol/L (3.5-5.1)
[2020-06-06] MEDS: predniSONE 20 MG TABLET PO SCH (08:14)
[2020-06-06] MEDS: LIDOCAINE (700MG/PATCH) PATCH. TD SCH (08:14)
[2020-06-06] MEDS: LOSARTAN POTASSIUM 50 MG TABLET. PO SCH (08:15)
[2020-06-06] MEDS: VARENICLINE 0.5 MG TABLET. PO SCH ×2 (08:15→20:37)
[2020-06-06] MEDS: hydrALAZINE 10 MG TABLET PO SCH (08:16)
[2020-06-06] MEDS: FLUTICASONE/VILANTEROL 100/25 INHALER. INH SCH (08:16)
[2020-06-06] MEDS: PANTOPRAZOLE 40 MG TABLET.DR. PO SCH (08:16)
[2020-06-06] MEDS: DOXYCYCLINE HYCLATE 100 MG TABLET PO SCH ×2 (08:16→20:37)
[2020-06-06] MEDS: hydroCHLOROthiazide 25 MG TABLET PO SCH (08:16)
--- NOTE | 2020-06-06 09:48 | PDOC ---
[facility] [facility] PROGRESS NOTE Date of Service DOS: DATE: 06/06/20 TIME: 09:42 Chief Complaint Chief Complaint COVID-19 infection Acute generalized weakness secondary to chemotherapy versus COPD exacerbation Fever concerning for Port-A-Cath infection Polycythemia suggestive of chronic tobacco use Thrombocytopenia Acute electrolyte derangement suggestive of volume depletionhyponatremia, hypokalemia, hypochloremia ZACARIAS due to vasomotor nephropathy Mild transaminitis Concern for trastuzumab pneumonitis versus interstitial lung disease Hypokalemia IV and p.o. potassium replacement History of Present Illness History of Present Illness 59 year old female, accompanied by her , who presents to the emergency department with complaints of generalized weakness for the last 7 days. Patient states she had her last chemotherapy treatment for right-sided breast cancer on May 212019. She states for the last week she is just felt fatigued and weak. She states she is also had a decreased appetite. Patient denies any fever, cough, increased shortness of breath, chest pain, abdominal pain, nausea, vomiting, diarrhea, headache, or loss of taste/smell. Patient denies any swelling of her lower extremities. She has a history of COPD and states that her breathing is not more labored than usual. She constantly wears 4 L of oxygen via nasal cannula due to her COPD. She states that she stopped smoking approximately 1 week ago. Patient denies any known exposure to COVID-19, she states she has been staying home. 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 The patient currently denies any pain. She reports she had a right mastectomy back in October, she denies any redness at her surgical site. Patient denies any redness, or warmth at her Port-A-Cath site. Patient reports that her oncologist is Dr. Glasgow, she is currently on a chemotherapy treatment that she is not supposed to take any ibuprofen with. 05/31: Patient seen and evaluated bedside. COVID-19 pending. She has a history of COPD and is currently breathing on 6 L oxygen, which is increased from reported 4L at baseline. She is tachycardic and febrile, will obtain D-dimer. Will obtain albuterol inhaler from pharmacy and resume home medications. Continue antibiotic coverage for COPD exacerbation possible community-acquired pneumonia. Discussed with RN. 06/01: Patient seen and evaluated bedside. COVID-19 positive. After discussion of risk respiratory, patient was comfortable initiating remdesivir. Will follow LFTs. Oxygen requirement is increasing currently on 10 L nasal cannula. Febrile, tachycardic, tachypneic. Obtain CTA this morning that was negative for PE. Will consult pulmonology for further recommendations. 06/02: Patient seen and evaluated. Remdesivir day 2/5, will continue to follow LFTs. She is currently breathing on 9 L nasal cannula, and at baseline requiring 4 L. Hematology/oncology with plan to permanently discontinue trastuzumab emtansine given grade 3 interstitial pneumonitis. Discussed with pulmonology, will continue to wean oxygen to patient's baseline, and provide extended steroid taper. Still with complaints of diarrhea. She is C. difficile negative, will add Lomotil as needed. Discussed with RN and child protective services social worker. 06/03, still on 9 liters, cough better, day 3 remdesivier, str better, eating better still on steroids, cont current above reviewed 06/04/2020 No acute events overnight. Patient continues to saturate 91% on 9 L nasal cannula. Dyspnea upon exertion. Day 4 Remdesivir. Patient's chart, labs, images were reviewed and discussed with RN 06/05/2020 No acute events overnight. Patient saturating 93% on 9 L nasal cannula. Still complains of dyspnea upon exertion. Patient will finish up her last dose of remdesivir. Potassium at 3.1 today. 06/06/2020 Patient seen and evaluated. Afebrile. Currently breathing on 7 L nasal cannula saturating 97%. We will continue to wean oxygen, goal to wean patient down to 6 L. She completed 5 days course of remdesivir, still symptomatic. Will increase this to full 10-day course of remdesivir. Continue to monitor LFTs. Extended prednisone taper over 4 weeks. Vitals/I&O Vitals/I&O: Vital Signs Date Time Temp Pulse Resp B/P (MAP) Pulse Ox O2 Delivery O2 Flow Rate FiO2 06/06/20 08:16 94 115/68 06/06/20 07:00 97.8 18 97 Nasal Cannula 9.0 97.8 I & O 06/05/20 06/05/20 06/06/20 15:00 23:00 07:00 Intake Total 200 ml 480 ml 600 ml Output Total 1 ml Balance 200 ml 480 ml 599 ml Physical Exam General: Alert, mild distress, Other Heart: Regular rate, No murmurs, Other Lungs: Other (Decreased breath sounds, crackles perihierally) Abdomen: Normal bowel sounds, Soft Extremities: No cyanosis Skin: No rashes Labs Labs: Laboratory Tests Test 06/06/20 04:30 Sodium Level 138 mmol/L (136-145) Potassium Level 4.3 mmol/L (3.5-5.1) Chloride Level 101 mmol/L (98-107) Carbon Dioxide Level 24 mmol/L (21-32) Anion Gap 13 (6-14) Blood Urea Nitrogen 17 mg/dL (7-20) Creatinine 0.6 mg/dL (0.6-1.0) Estimated GFR (Cockcroft-Gault) 102.0 Glucose Level 93 mg/dL (70-99) Calcium Level 9.2 mg/dL (8.5-10.1) Total Bilirubin 0.6 mg/dL (0.2-1.0) Direct Bilirubin 0.3 mg/dL (0.0-0.2) Aspartate Amino Transf (AST/SGOT) 67 U/L (15-37) Alanine Aminotransferase (ALT/SGPT) 72 U/L (14-59) Alkaline Phosphatase 60 U/L (46-116) Total Protein 6.3 g/dL (6.4-8.2) Albumin 2.7 g/dL (3.4-5.0) Assessment and Plan Assessmemt and Plan Problems Medical Problems: (1) ZACARIAS (acute kidney injury) Status: Acute (2) Dehydration Status: Acute (3) Fever Status: Acute (4) Hx of breast cancer Status: Acute (5) Hyponatremia Status: Acute (6) Person under investigation for COVID-19 Status: Acute Comment Review of Relevant I have reviewed the following items lobo (where applicable) has been applied. Medications: Current Medications Medications (Trade) Dose Ordered Sig/Micaela Route PRN Reason Start Time Stop Time Status Last Admin Dose Admin Potassium Chloride (Klor-Con) 40 meq 1X ONCE PO 06/05/20 12:30 06/05/20 12:31 DC 06/05/20 12:30 Justifications for Admission Other Justification generalized weakness KING TENORIO MD Jun 06, 2020 09:48
--- NOTE | 2020-06-06 10:27 | PDOC ---
PULMONARY PROGRESS NOTES DATE: 06/06/20 TIME: 10:25 Subjective Pt. is resting on 7 liters N/C Denies SOA or Cough No overnight concerns from nursing Vitals Vital Signs Date Time Temp Pulse Resp B/P (MAP) Pulse Ox O2 Delivery O2 Flow Rate FiO2 06/06/20 08:16 94 115/68 06/06/20 07:00 97.8 18 97 Nasal Cannula 9.0 97.8 ROS: No Nausea, No Chest Pain, No Abdominal Pain, No Increase Cough General: Alert Lungs: Other (Decreased breath sounds, crackles perihierally) Cardiovascular: S1, S2 Abdomen: Soft, Non-tender Neuro Exam: Alert Extremities: No Edema Skin: Warm, Dry Labs Laboratory Tests Test 06/05/20 04:30 06/06/20 04:30 Sodium Level 138 mmol/L (136-145) 138 mmol/L (136-145) Potassium Level 3.1 mmol/L (3.5-5.1) 4.3 mmol/L (3.5-5.1) Chloride Level 100 mmol/L (98-107) 101 mmol/L (98-107) Carbon Dioxide Level 29 mmol/L (21-32) 24 mmol/L (21-32) Anion Gap 9 (6-14) 13 (6-14) Blood Urea Nitrogen 19 mg/dL (7-20) 17 mg/dL (7-20) Creatinine 0.7 mg/dL (0.6-1.0) 0.6 mg/dL (0.6-1.0) Estimated GFR (Cockcroft-Gault) 85.4 102.0 Glucose Level 114 mg/dL (70-99) 93 mg/dL (70-99) Calcium Level 8.8 mg/dL (8.5-10.1) 9.2 mg/dL (8.5-10.1) Magnesium Level 1.9 mg/dL (1.8-2.4) Total Bilirubin 0.6 mg/dL (0.2-1.0) 0.6 mg/dL (0.2-1.0) Direct Bilirubin 0.2 mg/dL (0.0-0.2) 0.3 mg/dL (0.0-0.2) Aspartate Amino Transf (AST/SGOT) 82 U/L (15-37) 67 U/L (15-37) Alanine Aminotransferase (ALT/SGPT) 81 U/L (14-59) 72 U/L (14-59) Alkaline Phosphatase 61 U/L (46-116) 60 U/L (46-116) Total Protein 5.7 g/dL (6.4-8.2) 6.3 g/dL (6.4-8.2) Albumin 2.6 g/dL (3.4-5.0) 2.7 g/dL (3.4-5.0) Laboratory Tests Test 06/06/20 04:30 Sodium Level 138 mmol/L (136-145) Potassium Level 4.3 mmol/L (3.5-5.1) Chloride Level 101 mmol/L (98-107) Carbon Dioxide Level 24 mmol/L (21-32) Anion Gap 13 (6-14) Blood Urea Nitrogen 17 mg/dL (7-20) Creatinine 0.6 mg/dL (0.6-1.0) Estimated GFR (Cockcroft-Gault) 102.0 Glucose Level 93 mg/dL (70-99) Calcium Level 9.2 mg/dL (8.5-10.1) Total Bilirubin 0.6 mg/dL (0.2-1.0) Direct Bilirubin 0.3 mg/dL (0.0-0.2) Aspartate Amino Transf (AST/SGOT) 67 U/L (15-37) Alanine Aminotransferase (ALT/SGPT) 72 U/L (14-59) Alkaline Phosphatase 60 U/L (46-116) Total Protein 6.3 g/dL (6.4-8.2) Albumin 2.7 g/dL (3.4-5.0) Medications Active Scripts Medications Dose Route/Sig Max Daily Dose Days Date Category Dose Instructions [kadcyla] 1 Ea IV UD 03/12/20 Reported chemotherapy every 3 weeks Chantix (Varenicline Tartrate) 1 Mg Tablet 1 Mg PO BID 10/28/19 Reported Hydrochlorothiazide Tablet (Hydrochlorothiazide) 25 Mg Tablet 12.5 Mg PO DAILY 05/23/19 Reported Hydralazine Hcl 10 Mg Tablet 10 Mg PO DAILY 05/23/19 Reported Ventolin Hfa Inhaler (Albuterol Sulfate) 18 Gm Hfa.aer.ad 2 Puff INH PRN Q4-6HRS PRN 05/23/19 Reported Breo Ellipta 100-25 Mcg Inh (Fluticasone/Vilanterol) 1 Each Aer.pow.ba 2 Puff IH DAILY 05/23/19 Reported Comments CTA chest IMPRESSION: 1. Suboptimal pulmonary arterial opacification. No large central embolus is identified. The segmental and subsegmental pulmonary arteries are less well evaluated. 2. Panlobular emphysema and subpleural honeycombing in the lower lobes with peripheral consolidation, most conspicuous in the lower lobes. Findings may represent interstitial lung disease. Given the relatively rapid development of findings, consider possible drug associated organizing pneumonia in the differential. 3. Slight increase in size of a 2 cm lobulated nodule in the anterior right upper lobe, now measuring 2.4 x 1.2 x 1.3 cm. 4. Partially imaged 2.5 cm stone in the gallbladder neck, and mixed solid and cystic mass in the superior pole of the left kidney, better evaluated on renal mass protocol MRI or CT. 5. Similar heterogeneous enhancement in the right renal cortex, better evaluated on renal mass protocol MRI or CT. Impression . IMPRESSION: 1. Acute on chronic hypoxic respiratory failure secondary to multifactorial etiologies and includes a combination of underlying chronic obstructive pulmonary disease, likely drug-induced acute interstitial lung Pneumonitis (Kadcyla) and COVID-19 pneumonia. 2. The patient with right breast cancer T2 N1, ER positive, HER-2 positive, on adjuvant therapy with Kadcyla.( likely drug-induced acute interstitial lung Pneumonitis) 3. COVID-19 pneumonia. 4. 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 5. Abnormal liver function tests, could be related to COVID pneumonia. 6. Abnormal D-dimer, which could be secondary to multifactorial etiologies. No central pulmonary emboli. Plan . RECOMMENDATIONS: Continue supplemental oxygen, currently on 7 liters N/C, wear 3 liters N/C at baseline, will wean oxygen as tolerated Follow HEM/ONC recs--recommend to discontinue Kadcyla as it may be associated with acute interstitial lung disease/ Pneumonitis. complete remdesivir for full course 06/07 Continue PO prednisone from 06/03 and slow taper over 4 weeks Continue empiric antibiotics repeat ct chest in 6-8 weeks Pt. to follow up in our office with me in 07/[address] chest prior likely dc home once down to 6 litres, likely in am. 6 min walk in am PT/OT DVT/GI PPX D/W RN ANABELLA TODD MD Jun 06, 2020 10:27
[2020-06-06 11:00] VITALS: BP 144/78
[2020-06-06] MEDS: SODIUM CHLORIDE IV SCH (11:50)
[2020-06-06] MEDS: REMDESIVIR 100 MG IV SCH (11:50)
[2020-06-06 15:00] VITALS: BP 144/73
[2020-06-06] MEDS: ENOXAPARIN 40 MG/0.4 ML SYRINGE. SQ SCH (15:00)
[2020-06-06 19:00] VITALS: BP 130/62
[2020-06-06] MEDS: PATCH REMOVAL. MC SCH (21:00)
[2020-06-06 23:00] VITALS: BP 120/74
[2020-06-07 03:00] VITALS: BP 131/67
[2020-06-07] MEDS: CEFEPIME HCL IV Push 2 GM VIAL. IVP SCH ×3 (06:10→23:04)
[2020-06-07 07:00] VITALS: BP 168/99
[2020-06-07] MEDS: PANTOPRAZOLE 40 MG TABLET.DR. PO SCH (07:51)
[2020-06-07] MEDS: hydroCHLOROthiazide 25 MG TABLET PO SCH (09:00)
[2020-06-07] MEDS: VARENICLINE 0.5 MG TABLET. PO SCH ×2 (09:00→23:04)
[2020-06-07] MEDS: predniSONE 20 MG TABLET PO SCH (09:01)
[2020-06-07] MEDS: hydrALAZINE 10 MG TABLET PO SCH (09:01)
[2020-06-07] MEDS: LOSARTAN POTASSIUM 50 MG TABLET. PO SCH (09:01)
[2020-06-07] MEDS: DOXYCYCLINE HYCLATE 100 MG TABLET PO SCH ×2 (09:01→23:05)
[2020-06-07] MEDS: LIDOCAINE (700MG/PATCH) PATCH. TD SCH (09:02)
[2020-06-07] MEDS: FLUTICASONE/VILANTEROL 100/25 INHALER. INH SCH (09:02)
[2020-06-07 11:00] VITALS: BP 141/88
--- NOTE | 2020-06-07 11:18 | PDOC ---
PULMONARY PROGRESS NOTES DATE: 06/07/20 TIME: 11:12 Subjective Pt. is resting on 7 liters N/C Denies SOA or Cough No overnight concerns from nursing Vitals Vital Signs Date Time Temp Pulse Resp B/P (MAP) Pulse Ox O2 Delivery O2 Flow Rate FiO2 06/07/20 09:01 95 168/99 06/07/20 08:00 Nasal Cannula 7.0 06/07/20 07:00 97.6 22 92 97.6 ROS: No Nausea, No Chest Pain, No Abdominal Pain, No Increase Cough General: Alert Lungs: Other (Decreased breath sounds, crackles perihierally) Cardiovascular: S1, S2 Abdomen: Soft, Non-tender Neuro Exam: Alert Extremities: No Edema Skin: Warm, Dry Labs Laboratory Tests Test 06/06/20 04:30 Sodium Level 138 mmol/L (136-145) Potassium Level 4.3 mmol/L (3.5-5.1) Chloride Level 101 mmol/L (98-107) Carbon Dioxide Level 24 mmol/L (21-32) Anion Gap 13 (6-14) Blood Urea Nitrogen 17 mg/dL (7-20) Creatinine 0.6 mg/dL (0.6-1.0) Estimated GFR (Cockcroft-Gault) 102.0 Glucose Level 93 mg/dL (70-99) Calcium Level 9.2 mg/dL (8.5-10.1) Total Bilirubin 0.6 mg/dL (0.2-1.0) Direct Bilirubin 0.3 mg/dL (0.0-0.2) Aspartate Amino Transf (AST/SGOT) 67 U/L (15-37) Alanine Aminotransferase (ALT/SGPT) 72 U/L (14-59) Alkaline Phosphatase 60 U/L (46-116) Total Protein 6.3 g/dL (6.4-8.2) Albumin 2.7 g/dL (3.4-5.0) Medications Active Scripts Medications Dose Route/Sig Max Daily Dose Days Date Category Dose Instructions [kadcyla] 1 Ea IV UD 03/12/20 Reported chemotherapy every 3 weeks Chantix (Varenicline Tartrate) 1 Mg Tablet 1 Mg PO BID 10/28/19 Reported Hydrochlorothiazide Tablet (Hydrochlorothiazide) 25 Mg Tablet 12.5 Mg PO DAILY 05/23/19 Reported Hydralazine Hcl 10 Mg Tablet 10 Mg PO DAILY 05/23/19 Reported Ventolin Hfa Inhaler (Albuterol Sulfate) 18 Gm Hfa.aer.ad 2 Puff INH PRN Q4-6HRS PRN 05/23/19 Reported Breo Ellipta 100-25 Mcg Inh (Fluticasone/Vilanterol) 1 Each Aer.pow.ba 2 Puff IH DAILY 05/23/19 Reported Comments CTA chest IMPRESSION: 1. Suboptimal pulmonary arterial opacification. No large central embolus is identified. The segmental and subsegmental pulmonary arteries are less well evaluated. 2. Panlobular emphysema and subpleural honeycombing in the lower lobes with peripheral consolidation, most conspicuous in the lower lobes. Findings may represent interstitial lung disease. Given the relatively rapid development of findings, consider possible drug associated organizing pneumonia in the differential. 3. Slight increase in size of a 2 cm lobulated nodule in the anterior right upper lobe, now measuring 2.4 x 1.2 x 1.3 cm. 4. Partially imaged 2.5 cm stone in the gallbladder neck, and mixed solid and cystic mass in the superior pole of the left kidney, better evaluated on renal mass protocol MRI or CT. 5. Similar heterogeneous enhancement in the right renal cortex, better evaluated on renal mass protocol MRI or CT. Impression . IMPRESSION: 1. Acute on chronic hypoxic respiratory failure secondary to multifactorial etiologies and includes a combination of underlying chronic obstructive pulmonary disease, likely drug-induced acute interstitial lung Pneumonitis (Kadcyla) and COVID-19 pneumonia. 2. The patient with right breast cancer T2 N1, ER positive, HER-2 positive, on adjuvant therapy with Kadcyla.( likely drug-induced acute interstitial lung Pneumonitis) 3. COVID-19 pneumonia. 4. 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 5. Abnormal liver function tests, could be related to COVID pneumonia. 6. Abnormal D-dimer, which could be secondary to multifactorial etiologies. No central pulmonary emboli. Plan . RECOMMENDATIONS: Continue supplemental oxygen, currently on 7 liters N/C, wear 3 liters N/C at baseline, will wean oxygen as tolerated CXR PRN : today improved interstial infiltrates on left Follow HEM/ONC recs--recommend to discontinue Kadcyla as it may be associated with acute interstitial lung disease/ Pneumonitis. complete remdesivir for full course 06/07 Continue PO prednisone from 06/03 and slow taper over 4 weeks Continue empiric antibiotics on doxy and cefepime repeat ct chest in 6-8 weeks Pt. to follow up in our office with me in 07/[address] chest prior likely dc home once down to 6 litres, likely in am. 6 min walk in am PT/OT DVT/GI PPX D/W ANABELLA MCKINNEY MD Jun 07, 2020 11:18
--- NOTE | 2020-06-07 11:40 | RAD ---
XR CHEST 1V History: Reason: pneumonitis / Spl. Instructions: / History: Comparison: May 30, 2020 Findings: Ill-defined reticular opacities bilaterally, unchanged. Bibasilar patchy opacities, unchanged. No ple ural effusion. No pneumothorax. Stable left chest wall port. Unchanged heart size. Hyperinflation. Right upper lobe nodular opacity, unchanged compared to prior CT. Impression: 1. No significant interval change compared to prior. Electronically signed by: Orestes Savage DO (06/07/2020 11:38 AM) [id number]
--- NOTE | 2020-06-07 11:43 | PDOC ---
[facility] PROGRESS NOTE Date of Service DOS: DATE: 06/07/20 TIME: 11:42 Chief Complaint Chief Complaint COVID-19 infection Acute generalized weakness secondary to chemotherapy versus COPD exacerbation Fever concerning for Port-A-Cath infection Polycythemia suggestive of chronic tobacco use Thrombocytopenia Acute electrolyte derangement suggestive of volume depletionhyponatremia, hypokalemia, hypochloremia ZACARIAS due to vasomotor nephropathy Mild transaminitis Concern for trastuzumab pneumonitis versus interstitial lung disease Hypokalemia I History of Present Illness History of Present Illness 06/07/2020 Patient seen and examined on the COVID-19 floor She is slowly improving The plan is to possibly get her home tomorrow after a 6-minute walk Discussed with case management Discussed with RN Chart reviewed 59 year old female, accompanied by her , who presents to the emergency department with complaints of generalized weakness for the last 7 days. Patient states she had her last chemotherapy treatment for right-sided breast cancer on May [id number]. She states for the last week she is just felt fatigued and weak. She states she is also had a decreased appetite. Patient denies any fever, cough, increased shortness of breath, chest pain, abdominal pain, nausea, vomiting, diarrhea, headache, or loss of taste/smell. Patient denies any swelling of her lower extremities. She has a history of COPD and states that her breathing is not more labored than usual. She constantly wears 4 L of oxygen via nasal cannula due to her COPD. She states that she stopped smoking approximately 1 week ago. Patient denies any known exposure to COVID-19, she states she has been staying home. 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 The patient currently denies any pain. She reports she had a right mastectomy back in October, she denies any redness at her surgical site. Patient denies any redness, or warmth at her Port-A-Cath site. Patient reports that her oncologist is Dr. Glasgow, she is currently on a chemotherapy treatment that she is not supposed to take any ibuprofen with. 05/31: Patient seen and evaluated bedside. COVID-19 pending. She has a history of COPD and is currently breathing on 6 L oxygen, which is increased from reported 4L at baseline. She is tachycardic and febrile, will obtain D-dimer. Will obtain albuterol inhaler from pharmacy and resume home medications. Contin ue antibiotic coverage for COPD exacerbation possible community-acquired pneumonia. Discussed with RN. 06/01: Patient seen and evaluated bedside. COVID-19 positive. After discussion of risk respiratory, patient was comfortable initiating remdesivir. Will follow LFTs. Oxygen requirement is increasing currently on 10 L nasal cannula. Febrile, tachycardic, tachypneic. Obtain CTA this morning that was negative for PE. Will consult pulmonology for further recommendations. 06/02: Patient seen and evaluated. Remdesivir day 2/, will continue to follow LFTs. She is currently breathing on 9 L nasal cannula, and at baseline requir ing 4 L. Hematology/oncology with plan to permanently discontinue trastuzumab emtansine given grade 3 interstitial pneumonitis. Discussed with pulmonology, will continue to wean oxygen to patient's baseline, and provide extended steroid taper. Still with complaints of diarrhea. She is C. difficile negative, will add Lomotil as needed. Discussed with RN and social work job titles. 06/03, still on 9 liters, cough better, day 3 remdesivier, str better, eating better still on steroids, cont current above reviewed 06/04/2020 No acute events overnight. Patient continues to saturate 91% on 9 L nasal cannula. Dyspnea upon exertion. Day 4 Remdesivir. Patient's chart, labs, images were reviewed and discussed with RN 06/05/2020 No acute events overnight. Patient saturating 93% on 9 L nasal cannula. Still complains of dyspnea upon exertion. Patient will finish up her last dose of r emdesivir. Potassium at 3.1 today. 06/06/2020 Patient seen and evaluated. Afebrile. Currently breathing on 7 L nasal cannula saturating 97%. We will continue to wean oxygen, goal to wean patient down to 6 L. She completed 5 days course of remdesivir, still symptomatic. Will increase this to full 10-day course of remdesivir. Continue to monitor LFTs. Extended prednisone taper over 4 weeks. Vitals/I&O Vitals/I&O: Vital Signs Date Time Temp Pulse Resp B/P (MAP) Pulse Ox O2 Delivery O2 Flow Rate FiO2 06/07/20 11:00 97.5 113 22 141/88 (105) 90 Nasal Cannula 7.0 97.5 I & O 06/06/20 06/06/20 06/07/20 15:00 23:00 07:00 Intake Total 400 ml 400 ml 200 ml Output Total 200 ml Balance 400 ml 200 ml 200 ml Physical Exam General: Alert, mild distress, Other Heart: Regular rate, No murmurs, Other Lungs: Other (Decreased breath sounds, crackles perihierally) Abdomen: Normal bowel sounds, Soft Extremities: No cyanosis Skin: No rashes Assessment and Plan Assessmemt and Plan Problems Medical Problems: (1) ZACARIAS (acute kidney injury) Status: Acute (2) Dehydration Status: Acute (3) Fever Status: Acute (4) Hx of breast cancer Status: Acute (5) Hyponatremia Status: Acute (6) Person under investigation for COVID-19 Status: The plan is to continue our COVID-19 protocol for today and then discharge in the a.m. if she is stable after 6-minute walk Comment Review of Relevant I have reviewed the following items lobo (where applicable) has been applied. Medications: Current Medications Medications (Trade) Dose Ordered Sig/Micaela Route PRN Reason Start Time Stop Time Status Last Admin Dose Admin Remdesivir 100 mg/ Sodium Chloride 230 ml @ 460 mls/hr Q24H IV 06/06/20 12:00 06/10/20 12:29 06/06/20 11:50 Justifications for Admission Other Justification generalized weakness HUNTER ORTEGA III DO Jun 07, 2020 11:43
[2020-06-07] MEDS ORDERED: SODIUM CHLORIDE IV SCH (12:00)
[2020-06-07] MEDS ORDERED: REMDESIVIR 100 MG IV SCH (12:00)
[2020-06-07] MEDS: REMDESIVIR 100 MG IV SCH (12:03)
[2020-06-07] MEDS: SODIUM CHLORIDE IV SCH (12:03)
--- NOTE | 2020-06-07 13:49 | PDOC ---
PROGRESS NOTES Date of Service DATE: 06/07/20 TIME: 13:46 Subjective Subjective No overnight events. Paula continues to be oxygen dependent. Currently on 7 L oxygen by nasal cannula. Notes that breathing has improved over the past week. She would like to be discharged as soon as safe and feasible. Objective Objective Vital Signs Date Time Temp Pulse Resp B/P (MAP) Pulse Ox O2 Delivery O2 Flow Rate FiO2 06/07/20 11:00 97.5 113 22 141/88 (105) 90 Nasal Cannula 7.0 97.5 Intake and Output 06/07/20 07:00 Intake Total 1000 ml Output Total 200 ml Balance 800 ml Intake Oral 1000 ml Output Urine Total 200 ml # Voids 3 # Bowel Movements 5 Physical Exam Physical Exam Limited exam performed due to COVID-19 Abdomen: Soft Heart: Other Extremities: No cyanosis (No JVD) General: Alert, Oriented X3 HEENT: Atraumatic Lungs: Other (No respiratory distress) MUSCULOSKELETAL: No swelling Neck: Supple, No JVD Neuro: Normal speech Psych/Mental Status: Mental status NL Skin: No rashes Assessment Assessment Right breast cancer T2N1 ER positive HER-2 positive on adjuvant therapy with Kadcyla Acute on chronic hypoxic respiratory failure Interstitial pneumonitis, likely from trastuzumab emtansine COVID-19 infection Generalized weakness ZACARIAS Hyponatremia likely from dehydration Thrombocytopenia, secondary to Kadcyla COPD Stage I non-small cell lung cancer, status post SBRT in March 2020 Plan Plan of Care -Reviewed CT chest. Would agree with pulmonology that appearance is more consistent with drug-induced pneumonitis. -We will perrmanently discontinue trastuzumab emtansine given grade 3 interstitial pneumonitis -Given pre-existing respiratory failure from COPD that has been exacerbated by pneumonitis from Kadcyla, would favor foregoing additional HER-2 directed therapy. I discussed this with Paula today. She was agreeable to this. -She has not begun adjuvant endocrine therapy at this point. Anticipate starting adjuvant endocrine therapy as outpatient for hormone receptor positive breast cancer given anticipated incomplete adjuvant therapy for HER-2 positive disease -Continue supportive care for acute respiratory failure with oxygen supplementation -Would defer to pulmonology regarding steroid taper. Favor extended taper over [address] chest at that point -Plan to repeat LFTs as outpatient -Will continue to follow hospital course and arrange follow-[facility] with [facility] Ph: [phone] Comment Review of Relevant I have reviewed the following items lobo (where applicable) has been applied. Labs Laboratory Tests Test 06/06/20 04:30 Sodium Level 138 mmol/L (136-145) Potassium Level 4.3 mmol/L (3.5-5.1) Chloride Level 101 mmol/L (98-107) Carbon Dioxide Level 24 mmol/L (21-32) Anion Gap 13 (6-14) Blood Urea Nitrogen 17 mg/dL (7-20) Creatinine 0.6 mg/dL (0.6-1.0) Estimated GFR (Cockcroft-Gault) 102.0 Glucose Level 93 mg/dL (70-99) Calcium Level 9.2 mg/dL (8.5-10.1) Total Bilirubin 0.6 mg/dL (0.2-1.0) Direct Bilirubin 0.3 mg/dL (0.0-0.2) Aspartate Amino Transf (AST/SGOT) 67 U/L (15-37) Alanine Aminotransferase (ALT/SGPT) 72 U/L (14-59) Alkaline Phosphatase 60 U/L (46-116) Total Protein 6.3 g/dL (6.4-8.2) Albumin 2.7 g/dL (3.4-5.0) Medications Current Medications Sodium Chloride 1,000 ml @ 1,000 mls/hr 1X ONCE IV Last administered on 05/30/20at 13:27; Start 05/30/20 at 13:30; Stop 05/30/20 at 14:29; Status DC Acetaminophen (Tylenol) 1,000 mg 1X ONCE PO Last administered on 05/30/20at 14:21; Start 05/30/20 at 13:30; Stop 05/30/20 at 13:31; Status DC Sodium Chloride 1,000 ml @ 125 mls/hr Q8H IV Last administered on 05/31/20at 00:01; Start 05/30/20 at 13:45; Stop 05/31/20 at 13:44; Status DC Cefepime HCl (Maxipime) 1 gm 1X ONCE IVP Last administered on 05/30/20at 16:32; Start 05/30/20 at 15:00; Stop 05/30/20 at 15:01; Status DC Sennosides (Senna) 17.2 mg PRN BID PRN PO CONSTIPATION; Start 05/30/20 at 14:30 Docusate Sodium (Colace) 100 mg PRN DAILY PRN PO HARD STOOLS; Start 05/30/20 at 14:30 Ondansetron HCl (Zofran) 4 mg PRN Q6HRS PRN IVP NAUSEA/VOMITING; Start 05/30/20 at 14:30 Dextrose (Dextrose 50%-Water Syringe) 12.5 gm PRN Q15MIN PRN IV SEE COMMENTS; Start 05/30/20 at 14:30 Enoxaparin Sodium (Lovenox 40mg Syringe) 40 mg Q24H SQ Last administered on 06/06/20at 15:00; Start 05/30/20 at 15:00 Morphine Sulfate (Morphine Sulfate) 2 mg PRN Q2HR PRN IV SEVERE PAIN 7-10 Last administered on 05/30/20at 16:31; Start 05/30/20 at 04:00; Stop 05/31/20 at 03:59; Status DC Prochlorperazine Edisylate (Compazine) 10 mg Q6HRS PRN IV VOMITING 2ND CHOICE; Start 05/30/20 at 14:30 Acetaminophen (Tylenol) 650 mg PRN Q6HRS PRN PO MILD PAIN / TEMP > 100.3'F Last administered on 06/02/20at 05:20; Start 05/31/20 at 00:15 Potassium Chloride (Klor-Con) 40 meq 1X ONCE PO Last administered on 05/31/20at 10:03; Start 05/31/20 at 08:00; Stop 05/31/20 at 08:01; Status DC Non-Formulary Medication (Albuterol Sulfate (Ventolin Hfa Inhaler)) 2 puff PRN Q4-6HRS PRN INH SHORTNESS OF BREATH; Start 05/31/20 at 11:30; Status UNV Sodium Chloride 1,000 ml @ 100 mls/hr Q10H IV Last administered on 06/01/20at 18:00; Start 05/31/20 at 12:00; Stop 06/05/20 at 09:12; Status DC Albuterol Sulfate (Ventolin Neb Soln) 2.5 mg PRN Q4HRS PRN NEB SHORTNESS OF BREATH; Start 05/31/20 at 12:00; Stop 06/03/20 at 12:04; Status DC Cefepime HCl (Maxipime) 2 gm Q8HRS IVP Last administered on 06/07/20at 06:10; Start 05/31/20 at 13:00 Doxycycline Hyclate (Vibra-Tab) 100 mg BID PO Last administered on 06/07/20 09:01; Start 05/31/20 at 13:00 Albuterol Sulfate (Ventolin Hfa) 1 puff PRN Q4HRS PRN INH SHORTNESS OF BREATH Last administered on 06/04/20 08:46; Start 05/31/20 at 12:45 Hydralazine HCl (Apresoline) 10 mg DAILY PO Last administered on 06/07/20 09:01; Start 06/01/20 at 09:00 Hydrochlorothiazide (Hydrodiuril) 12.5 mg DAILY PO Last administered on 06/07/20 09:00; Start 06/01/20 at 09:00 Fluticasone/ Vilanterol (Breo Ellipta 100-25 Mcg) 1 puff DAILY INH Last administered on 06/07/20 09:02; Start 05/31/20 at 14:00 Losartan Potassium (Cozaar) 100 mg DAILY PO Last administered on 06/07/20 09:01; Start 06/01/20 at 09:00 Varenicline (Chantix) 1 mg BID PO Last administered on 06/07/20at 09:00; Start 05/31/20 at 21:00 Iohexol (Omnipaque 350 Mg/ml) 80 ml 1X ONCE IV Last administered on 06/01/20at 08:45; Start 06/01/20 at 08:45; Stop 06/01/20 at 08:51; Status DC Info (CONTRAST GIVEN -- Rx MONITORING) 1 each PRN DAILY PRN MC SEE COMMENTS; Start 06/01/20 at 09:00; Stop 06/03/20 at 08:59; Status DC Remdesivir 200 mg/ Sodium Chloride 210 ml @ 210 mls/hr 1X ONCE IV Last administered on 06/01/20at 12:03; Start 06/01/20 at 12:00; Stop 06/01/20 at 12:59; Status DC Remdesivir 100 mg/ Sodium Chloride 230 ml @ 460 mls/hr Q24H IV Last admini stered on 06/05/20at 12:00; Start 06/02/20 at 12:00; Stop 06/05/20 at 12:29; Status DC Dexamethasone (Decadron) 6 mg DAILYWBKFT PO Last administered on 06/02/20at 08:31; Start 06/01/20 at 13:00; Stop 06/02/20 at 20:02; Status DC Lidocaine (Lidoderm) 1 patch DAILY TD ; Start 06/01/20 at 23:15; Status Cancel Miscellaneous (Lidoderm Patch Removal) 1 [facility] ; Start 06/01/20 at 21:00; Status Cancel Lidocaine (Lidoderm) 1 patch DAILY TD Last administered on 06/07/20at 09:02; Start 06/01/20 at 23:30 Miscellaneous (Lidoderm Patch Removal) 1 [facility] Last administered on 06/06/20at 21:00; Start 06/01/20 at 21:00 Potassium Chloride (Klor-Con) 20 meq 1X ONCE PO Last administered on 06/02/20at 10:28; Start 06/02/20 at 09:45; Stop 06/02/20 at 09:46; Status DC Diphenoxylate HCl/ Atropine (Lomotil) 1 tab PRN QID PRN PO DIARRHEA Last administered on 06/03/20at 14:13; Start 06/02/20 at 13:00 Prednisone (Prednisone) 40 mg DAILY PO Last administered on 06/07/20at 09:01; Start 06/03/20 at 09:00 Al Hydroxide/Mg Hydroxide (Mylanta Plus Xs) 30 ml PRN Q2HR PRN PO HEARTBURN / GAS Last administered on 06/03/20at 14:10; Start 06/03/20 at 04:45 Pantoprazole Sodium (Protonix) 40 mg DAILYAC PO Last administered on 06/07/20at 07:51; Start 06/03/20 at 17:30 Potassium Chloride (Klor-Con) 40 meq 1X ONCE PO Last administered on 06/05/20at 09:33; Start 06/05/20 at 09:30; Stop 06/05/20 at 09:31; Status DC Potassium Chloride (Klor-Con) 40 meq 1X ONCE PO Last administered on 06/05/20at 12:30; Start 06/05/20 at 12:30; Stop 06/05/20 at 12:31; Status DC Guaifenesin (Mucinex) 600 mg BID PO Last administered on 06/07/20at 09:01; Start 06/06/20 at 09:00 Remdesivir 100 mg/ Sodium Chloride 230 ml @ 460 mls/hr Q24H IV ; Start 06/07/20 at 12:00; Stop 06/06/20 at 11:36; Status DC Remdesivir 100 mg/ Sodium Chloride 230 ml @ 460 mls/hr Q24H IV Last administered on 06/07/20at 12:03; Start 06/06/20 at 12:00; Stop 06/10/20 at 12:29 Active Scripts Active Reported [kadcyla] 1 Ea IV UD chemotherapy every 3 weeks Chantix (Varenicline Tartrate) 1 Mg Tablet 1 Mg PO BID Hydrochlorothiazide Tablet (Hydrochlorothiazide) 25 Mg Tablet 12.5 Mg PO DAILY Hydralazine Hcl 10 Mg Tablet 10 Mg PO DAILY Ventolin Hfa Inhaler (Albuterol Sulfate) 18 Gm Hfa.aer.ad 2 Puff INH PRN Q4-6HRS PRN Breo Ellipta 100-25 Mcg Inh (Fluticasone/Vilanterol) 1 Each Aer.pow.ba 2 Puff IH DAILY Vitals/I & O Vital Sign - Last 24 Hours 06/06/20 06/06/20 06/06/20 06/06/20 15:00 19:00 20:15 23:00 Temp 96.9 98.2 97.7 96.9 98.2 97.7 Pulse 82 98 97 Resp 18 20 B/P (MAP) 144/73 (96) 130/62 (84) 120/74 (89) Pulse Ox 93 96 96 O2 Delivery Nasal Cannula Nasal Cannula Nasal Cannula Nasal Cannula O2 Flow Rate 9.0 7.0 7.0 7.0 06/07/20 06/07/20 06/07/20 06/07/20 03:00 07:00 08:00 09:01 Temp 97.7 97.6 97.7 97.6 Pulse 97 95 95 Resp 22 B/P (MAP) 131/67 (88) 168/99 (122) 168/99 Pulse Ox 96 92 O2 Delivery Nasal Cannula Nasal Cannula Nasal Cannula O2 Flow Rate 7.0 7.0 7.0 06/07/20 06/07/20 09:01 11:00 Temp 97.5 97.5 Pulse 95 113 Resp 22 B/P (MAP) 168/99 141/88 (105) Pulse Ox 90 O2 Delivery Nasal Cannula O2 Flow Rate 7.0 Intake and Output 06/06/20 06/06/20 06/07/20 15:00 23:00 07:00 Intake Total 400 ml 400 ml 200 ml Output Total 200 ml Balance 400 ml 200 ml 200 ml Justifications for Admission Other Justification generalized weakness ALBA GRAVES MD Jun 07, 2020 13:49
[2020-06-07 13:55] LABS: ALBUMIN 2.9 g/dL (3.4-5.0); DIRECT BILIRUBIN 0.2 mg/dL (0.0-0.2); TOTAL BILIRUBIN 0.7 mg/dL (0.2-1.0); TOTAL PROTEIN 6.8 g/dL (6.4-8.2)
--- NOTE | 2020-06-07 14:14 | NUR ---
SW following for discharge planning. Spoke with RN and reviewed chart. Pt from home with spouse. Possible discharge tomorrow, 06/08 with HH. Pt has been approved for HH with [facility]. 6 min walk to be ordered prior to discharge per RN. Pt on 7l 02 with home 02. SW following.
[2020-06-07] MEDS: ENOXAPARIN 40 MG/0.4 ML SYRINGE. SQ SCH (14:59)
[2020-06-07 15:01] VITALS: BP 133/70
[2020-06-07 19:00] VITALS: BP 138/79
[2020-06-07] MEDS: PATCH REMOVAL. MC SCH (21:00)
[2020-06-07 23:00] VITALS: BP 138/87
[2020-06-08 03:00] VITALS: BP 119/78
[2020-06-08] MEDS: CEFEPIME HCL IV Push 2 GM VIAL. IVP SCH ×2 (05:49→13:18)
[2020-06-08 07:00] VITALS: BP 144/84
[2020-06-08] MEDS: PANTOPRAZOLE 40 MG TABLET.DR. PO SCH (07:37)
[2020-06-08 08:45] VITALS: BP 144/84
[2020-06-08] MEDS: VARENICLINE 0.5 MG TABLET. PO SCH (08:45)
[2020-06-08] MEDS: hydroCHLOROthiazide 25 MG TABLET PO SCH (08:45)
[2020-06-08] MEDS: LIDOCAINE (700MG/PATCH) PATCH. TD SCH (08:46)
[2020-06-08] MEDS: LOSARTAN POTASSIUM 50 MG TABLET. PO SCH (08:46)
[2020-06-08] MEDS: hydrALAZINE 10 MG TABLET PO SCH (08:46)
[2020-06-08] MEDS: DOXYCYCLINE HYCLATE 100 MG TABLET PO SCH (08:46)
[2020-06-08] MEDS: predniSONE 20 MG TABLET PO SCH (08:46)
[2020-06-08] MEDS: FLUTICASONE/VILANTEROL 100/25 INHALER. INH SCH (08:47)
--- NOTE | 2020-06-08 10:14 | SNU/HH DC ---
DISCHARGE WITH HOME HEALTH DISCHARGE INFORMATION: Final Diagnosis: Problems Medical Problems: (1) ZACARIAS (acute kidney injury) Status: Acute (2) Dehydration Status: Acute (3) Fever Status: Acute (4) Hx of breast cancer Status: Acute (5) Hyponatremia Status: Acute (6) Person under investigation for COVID-19 Status: Acute Condition on Discharge: Stable CODE STATUS: Code Status: Full HOME HEALTH: Face to Face: I certify this patient is under my care and that I, or a nurse practitioner or physician's library media assistant working with me, had a face to face encounter that meets the physician face to face encounter requirements with this patient on []. Medical Complications: Other (Recent COVID-19) Long Term For: Assess Cardiopulm Status RN For Eval/Treatment: Yes Physical Therapy For: Evalulation/Treatment Occupational Therapy For: Evaluation/Treatment Home Health Aide For: Self-care RECRUITING AND SELECTION CONSULTANT For: Community Resources Pt Meets Homebound Status: Poor coordination w/ amb. POST DISCHARGE ORDERS: Activity Instructions for Disc: No restrictions DIET AFTER DISCHARGE: Cardiac Wound/Incision Care: Other, see below CERTIFICATION STATEMENT: Certification Statement: Certification Statement: Based on the above finding, I certify that this patient is confined to the home and needs intermittent longterm care, physical therapy and/or speech therapy, or continues to need occupational therapy.~ This patient is under my care, and I have initiated the establishment of the plan of care.~ This patient will be followed by myself or a community physician who will periodically review the plan of care. Home Meds Reported Medications Olmesartan Medoxomil (BENICAR) 40 Mg Tablet, 1 TAB PO DAILY for rx for 30 Days, #30 TAB 0 Refills 03/12/20 [kadcyla] No Conflict Check, 1 EA IV UD chemotherapy every 3 weeks 03/12/20 Varenicline Tartrate (CHANTIX) 1 Mg Tablet, 1 MG PO BID for smoking cessation, TAB 10/28/19 Hydrochlorothiazide (HYDROCHLOROTHIAZIDE TABLET ) 25 Mg Tablet, 12.5 MG PO DAILY for DIURETIC, TAB 0 Refills 05/23/19 Hydralazine Hcl (HYDRALAZINE HCL) 10 Mg Tablet, 10 MG PO DAILY for BP CONTROL, TAB 05/23/19 Albuterol Sulfate (VENTOLIN HFA INHALER) 18 Gm Hfa.aer.ad, 2 PUFF INH PRN Q4- 6HRS PRN for SHORTNESS OF BREATH, INHALER 0 Refills 05/23/19 Fluticasone/Vilanterol (BREO ELLIPTA 100-25 MCG INH) 1 Each Aer.pow.ba, 2 PUFF IH DAILY for CONTROL COPD, INHALER 05/23/19 HUNTER ORTEGA III DO Jun 08, 2020 10:14
--- NOTE | 2020-06-08 10:47 | DS ---
DATE OF DISCHARGE: 06/08/2020 ADMISSION DIAGNOSES: Respiratory failure, acute kidney injury, probable COVID-19, weakness, polycythemia, thrombocytopenia, electrolyte derangement, acute kidney injury, and transaminitis. DISCHARGE DIAGNOSIS: Resolving COVID-19. HOSPITAL COURSE: The patient is a pleasant middle-aged female, who presented with weakness, shortness of breath, was coughing. She also had electrolyte disturbance and was basically admitted for COVID-19. We gave her COVID-19 protocol, including steroids and antibiotics and breathing treatments and oxygen and over the next few days, she returned to her baseline. We are discharging to home. DISPOSITION: Home. ACTIVITY: As tolerated. DIET: Low sodium. MEDICATIONS: Please see the MRAD. TOTAL TIME: 34 minutes. HUNTER ORTEGA DO DR: SILVANO/marco JOB#: [id number] / [id number]
[2020-06-08 11:00] VITALS: BP 128/82
[2020-06-08] MEDS: SODIUM CHLORIDE IV SCH (12:00)
[2020-06-08] MEDS: REMDESIVIR 100 MG IV SCH (12:00)
[2020-06-08 12:06] LABS: BASO # 0.1 x10^3/uL (0.0-0.2); BASO % 0 % (0-3); EOS # 0.1 x10^3/uL (0.0-0.7); EOS % 1 % (0-3); HEMATOCRIT 38.7 % (36.0-47.0); HEMOGLOBIN 13.1 g/dL (12.0-15.5); LYMPH # 1.3 x10^3/uL (1.0-4.8); LYMPH % 9 % (24-48); MEAN CORPUSCULAR HEMOGLOBIN 32 pg (25-35); MEAN CORPUSCULAR HGB CONC 34 g/dL (31-37); MEAN CORPUSCULAR VOLUME 94 fL (79-100); MONO # 1.3 x10^3/uL (0.0-1.1); MONO % 10 % (0-9); NEUT # 10.8 x10^3/uL (1.8-7.7); NEUT % 80 % (31-73); PLATELET COUNT 219 x10^3/uL (140-400); RED BLOOD COUNT 4.13 x10^6/uL (3.50-5.40); RED CELL DISTRIBUTION WIDTH 15.4 % (11.5-14.5); WHITE BLOOD COUNT 13.5 x10^3/uL (4.0-11.0)
[2020-06-08 12:12] LABS: CALCIUM 9.6 mg/dL (8.5-10.1); CREATININE 0.6 mg/dL (0.6-1.0)
[2020-06-08 15:00] VITALS: BP 128/78
[2020-06-08] MEDS: ENOXAPARIN 40 MG/0.4 ML SYRINGE. SQ SCH (15:00)
--- NOTE | 2020-06-08 15:49 | PDOC ---
PULMONARY PROGRESS NOTES DATE: 06/08/20 TIME: 15:43 Subjective Patient feels better, less short of air. Vitals Vital Signs Date Time Temp Pulse Resp B/P (MAP) Pulse Ox O2 Delivery O2 Flow Rate FiO2 06/08/20 15:00 97.5 112 19 128/78 (95) 88 Nasal Cannula 7.0 97.5 ROS: No Nausea, No Chest Pain, No Abdominal Pain, No Increase Cough General: Alert Lungs: Other (Decreased breath sounds, crackles perihierally) Cardiovascular: S1, S2 Abdomen: Soft, Non-tender Neuro Exam: Alert Extremities: No Edema Skin: Warm, Dry Labs Laboratory Tests Test 06/07/20 12:42 06/08/20 10:55 Total Bilirubin 0.7 mg/dL (0.2-1.0) Direct Bilirubin 0.2 mg/dL (0.0-0.2) Aspartate Amino Transf (AST/SGOT) 55 U/L (15-37) Alanine Aminotransferase (ALT/SGPT) 72 U/L (14-59) Alkaline Phosphatase 66 U/L (46-116) Total Protein 6.8 g/dL (6.4-8.2) Albumin 2.9 g/dL (3.4-5.0) White Blood Count 13.5 x10^3/uL (4.0-11.0) Red Blood Count 4.13 x10^6/uL (3.50-5.40) Hemoglobin 13.1 g/dL (12.0-15.5) Hematocrit 38.7 % (36.0-47.0) Mean Corpuscular Volume 94 fL (79-100) Mean Corpuscular Hemoglobin 32 pg (25-35) Mean Corpuscular Hemoglobin Concent 34 g/dL (31-37) Red Cell Distribution Width 15.4 % (11.5-14.5) Platelet Count 219 x10^3/uL (140-400) Neutrophils (%) (Auto) 80 % (31-73) Lymphocytes (%) (Auto) 9 % (24-48) Monocytes (%) (Auto) 10 % (0-9) Eosinophils (%) (Auto) 1 % (0-3) Basophils (%) (Auto) 0 % (0-3) Neutrophils # (Auto) 10.8 x10^3/uL (1.8-7.7) Lymphocytes # (Auto) 1.3 x10^3/uL (1.0-4.8) Monocytes # (Auto) 1.3 x10^3/uL (0.0-1.1) Eosinophils # (Auto) 0.1 x10^3/uL (0.0-0.7) Basophils # (Auto) 0.1 x10^3/uL (0.0-0.2) Sodium Level 135 mmol/L (136-145) Potassium Level 4.0 mmol/L (3.5-5.1) Chloride Level 98 mmol/L (98-107) Carbon Dioxide Level 26 mmol/L (21-32) Anion Gap 11 (6-14) Blood Urea Nitrogen 20 mg/dL (7-20) Creatinine 0.6 mg/dL (0.6-1.0) Estimated GFR (Cockcroft-Gault) 102.0 Glucose Level 110 mg/dL (70-99) Calcium Level 9.6 mg/dL (8.5-10.1) Laboratory Tests Test 06/08/20 10:55 White Blood Count 13.5 x10^3/uL (4.0-11.0) Red Blood Count 4.13 x10^6/uL (3.50-5.40) Hemoglobin 13.1 g/dL (12.0-15.5) Hematocrit 38.7 % (36.0-47.0) Mean Corpuscular Volume 94 fL (79-100) Mean Corpuscular Hemoglobin 32 pg (25-35) Mean Corpuscular Hemoglobin Concent 34 g/dL (31-37) Red Cell Distribution Width 15.4 % (11.5-14.5) Platelet Count 219 x10^3/uL (140-400) Neutrophils (%) (Auto) 80 % (31-73) Lymphocytes (%) (Auto) 9 % (24-48) Monocytes (%) (Auto) 10 % (0-9) Eosinophils (%) (Auto) 1 % (0-3) Basophils (%) (Auto) 0 % (0-3) Neutrophils # (Auto) 10.8 x10^3/uL (1.8-7.7) Lymphocytes # (Auto) 1.3 x10^3/uL (1.0-4.8) Monocytes # (Auto) 1.3 x10^3/uL (0.0-1.1) Eosinophils # (Auto) 0.1 x10^3/uL (0.0-0.7) Basophils # (Auto) 0.1 x10^3/uL (0.0-0.2) Sodium Level 135 mmol/L (136-145) Potassium Level 4.0 mmol/L (3.5-5.1) Chloride Level 98 mmol/L (98-107) Carbon Dioxide Level 26 mmol/L (21-32) Anion Gap 11 (6-14) Blood Urea Nitrogen 20 mg/dL (7-20) Creatinine 0.6 mg/dL (0.6-1.0) Estimated GFR (Cockcroft-Gault) 102.0 Glucose Level 110 mg/dL (70-99) Calcium Level 9.6 mg/dL (8.5-10.1) Medications Active Scripts Medications Dose Route/Sig Max Daily Dose Days Date Category Dose Instructions [kadcyla] 1 Ea IV UD 03/12/20 Reported chemotherapy every 3 weeks Chantix (Varenicline Tartrate) 1 Mg Tablet 1 Mg PO BID 10/28/19 Reported Hydrochlorothiazide Tablet (Hydrochlorothiazide) 25 Mg Tablet 12.5 Mg PO DAILY 05/23/19 Reported Hydralazine Hcl 10 Mg Tablet 10 Mg PO DAILY 05/23/19 Reported Ventolin Hfa Inhaler (Albuterol Sulfate) 18 Gm Hfa.aer.ad 2 Puff INH PRN Q4-6HRS PRN 05/23/19 Reported Breo Ellipta 100-25 Mcg Inh (Fluticasone/Vilanterol) 1 Each Aer.pow.ba 2 Puff IH DAILY 05/23/19 Reported Comments CTA chest IMPRESSION: 1. Suboptimal pulmonary arterial opacification. No large central embolus is identified. The segmental and subsegmental pulmonary arteries are less well evaluated. 2. Panlobular emphysema and subpleural honeycombing in the lower lobes with peripheral consolidation, most conspicuous in the lower lobes. Findings may represent interstitial lung disease. Given the relatively rapid development of findings, consider possible drug associated organizing pneumonia in the differential. 3. Slight increase in size of a 2 cm lobulated nodule in the anterior right upper lobe, now measuring 2.4 x 1.2 x 1.3 cm. 4. Partially imaged 2.5 cm stone in the gallbladder neck, and mixed solid and cystic mass in the superior pole of the left kidney, better evaluated on renal mass protocol MRI or CT. 5. Similar heterogeneous enhancement in the right renal cortex, better evaluated on renal mass protocol MRI or CT. Impression . IMPRESSION: 1. Acute on chronic hypoxic respiratory failure secondary to multifactorial etiologies and includes a combination of underlying chronic obstructive pulmonary disease, likely drug-induced acute interstitial lung Pneumonitis (Kadcyla) and COVID-19 pneumonia. 2. The patient with right breast cancer T2 N1, ER positive, HER-2 positive, on adjuvant therapy with Kadcyla.( likely drug-induced acute interstitial lung Pneumonitis) 3. COVID-19 pneumonia. 4. 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 5. Abnormal liver function tests, could be related to COVID pneumonia. 6. Abnormal D-dimer, which could be secondary to multifactorial etiologies. No central pulmonary emboli. Plan . Patient feels much better, will need a 6-minute walk prior to discharge Follow-up with Dr. Mcdaniel upon discharge, will stay on prednisone 30 mg a day until seen in the office CXR PRN : today improved interstial infiltrates on left Follow HEM/ONC recs--recommend to discontinue Kadcyla as it may be associated with acute interstitial lung disease/ Pneumonitis. complete remdesivir for full course 06/07 Continue PO prednisone from 06/03 and slow taper over 4 weeks Continue empiric antibiotics on doxy and cefepime repeat ct chest in 6-8 weeks Pt. to follow up in our office with me in 07/[address] chest prior PT/OT DVT/GI PPX D/W KATHIE TAYLOR MD Jun 08, 2020 15:49
--- NOTE | 2020-06-08 15:56 | NUR ---
KEVIN following for discharge planning. Spoke with RN and reviewed chart. 6 min walk results back and pt requiring increased 02. Pt has [employer] 02 at home. KEVIN phoned and faxed clinicals and new 02 orders to Van with [facility], , (fax). Van confirmed that orders were received and that new 02 concentrator would be delivered between 1600 and 1900. KEVIN confirmed with Bertha at [facility] that discharge orders were received. Start of care for is today, 06/08. Pt and spouse notified. Spouse to transport home. No further SW need at this time. Addendum: 06/08/20 at 1720 by WINSTON BROWN pt's script for Medrol dose pack included in discharge orders to [facility].
--- NOTE | 2020-06-08 17:47 | NUR ---
Discharge Note: COCO NOY[place] [address] Discharge instructions and discharge home medications reviewed with Patient and a copy given. All questions have been answered and understanding verbalized. The following instructions and handouts were given: F/U with pcp within one week. F/u with Dr. Glasgow within 2-3 weeks. F/U with Dr. Mcdaniel as scheduled. Discontinued lines and drains: Peripheral IV intact. Patient discharged to Home with Home Health with Family Member via Wheelchair. All belongings with patient at the time of discharge. Pt provided portable oxygen tank for transport home.
== END 2020-06-08 17:49 | disposition home health service (06) | DRG 177 ==
LOC: ER 12:51 → ED HOLD 13:37 → 6 SOUTH 18:20
PROVIDERS: ADMIT Internal Medicine; ATTEND Internal Medicine
PROC: XW033E5 Introduction of Remdesivir Anti-infective into Peripheral Vein, Percutaneous Approach, New Technology Group 5 (ICD-10-PCS; principal; 2020-06-08)
DX: U07.1 COVID-19 (principal); N17.0 Acute kidney failure with tubular necrosis; J12.89 Other viral pneumonia; J96.21 Acute and chronic respiratory failure with hypoxia; J44.0 Chronic obstructive pulmonary disease with (acute) lower respiratory infection; E87.1 Hypo-osmolality and hyponatremia; C50.911 Malignant neoplasm of unspecified site of right female breast; E87.8 Other disorders of electrolyte and fluid balance, not elsewhere classified; D69.59 Other secondary thrombocytopenia; D75.1 Secondary polycythemia; E87.6 Hypokalemia; F17.200 Nicotine dependence, unspecified, uncomplicated; I10 Essential (primary) hypertension; Z17.0 Estrogen receptor positive status [ER+]; Z85.118 Personal history of other malignant neoplasm of bronchus and lung; Z85.3 Personal history of malignant neoplasm of breast; Z90.11 Acquired absence of right breast and nipple; Z92.21 Personal history of antineoplastic chemotherapy; Z99.81 Dependence on supplemental oxygen; Z88.8 Allergy status to other drugs, medicaments and biological substances
CPT/HCPCS: 36415; 71045; 71275; 80048; 80053; 80076; 81001; 83605; 83735; 84100; 84145; 85025; 85379; 87493; 87804; 93005; 94618; 96361; 96374; 96375; G0238; J0692; J1650; J2270; J7030; J7050; J7512; Q9967; U0003; 97110-GP; 97530-GO; 97530-GP; 97535-GO; 99285-25; G0378

== ENCOUNTER → 2020-08-06 | Outpatient (CLI) | payer OTHER ==
[~2020-08-06] MED LIST changes: -MORPHINE SULFATE 4 MG/ML VIAL. IV PRN
--- NOTE | 2020-08-06 18:03 | RAD ---
CT scan of the chest without contrast 08/06/2020 CLINICAL HISTORY: Interstitial lung disease. TECHNIQUE: Unenhanced, contiguous, 5 mm axial sections were obtained through the chest and upper abdo men. One or more of the following individualized dose reduction techniques were utilized for this study: 1. Automated exposure control. 2. Adjustment of the mA and/or kV according to patient size. 3. Use of iterative reconstruction technique. FINDINGS: Comparison is made to patient's CTA of the chest dated 06/01/2020. A left internal jugular [id number] type catheter is unchanged in position. Atherosclerotic calcifi cation thoracic aorta and its branches is seen. The thoracic aorta tapers normally. The heart is norm al in size. No hilar, mediastinal or axillary lymphadenopathy is noted. The patient is post right mas tectomy. Moderate emphysematous changes are seen involving both lungs. A masslike opacity is seen involving the anterior lateral aspect of the right upper lobe. This measur es 2.3 x 1.4 x 0.9 cm in transverse, AP and craniocaudal dimensions. This has decreased in size since the previous study where it measured 2.5 x 1.6 x 1.4 cm in size. The peripheral infiltrates seen involving both lungs, particularly the lower lobes on the previous ex amination have resolved. A small probable area of subsegmental atelectasis is seen involving the late ral aspect of the left lower lobe. Linear bands of subsegmental atelectasis is seen involving both lo wer lobes. No pneumothorax or pleural effusion is seen. Images through the upper abdomen are unchanged. The osseous structures are unchanged. IMPRESSION: 1. Interval decrease in size of the 2.3 cm masslike opacity involving the right upper lobe. 2. The infiltrates seen on the previous examination have resolved. Electronically signed by: Dustin Monroe MD (08/06/2020 6:01 PM) [id number]
== END ==
LOC: CT 13:32
PROVIDERS: ATTEND Internal Medicine Critical Care Medicine
DX: J84.9 Interstitial pulmonary disease, unspecified (principal)
CPT/HCPCS: 71250